=== PATIENT | female | born 1965 | race Caucasian/White ===

== ENCOUNTER 2021-02-28 18:39 | Observation (INO) ==
[2021-02-28] MEDS ORDERED: SODIUM CHLORIDE 0.9% 1000ML 1,000 ML IV STA (19:46)
[2021-02-28 19:55] LABS: Basophils # (auto) 0.02 K/uL (0-0.2); Basophils % (auto) 0.3 %; Eosinophils # (auto) 0.14 K/uL (0-0.5); Eosinophils % (auto) 1.8 %; Hematocrit (blood only) 42.5 % (37-47); Hemoglobin 13.9 g/dL (12.0-16.0); Immature Granulocytes # (auto) 0.01 K/uL (0.00-0.02); Immature Granulocytes % (auto) 0.1 %; Lymphocytes # (auto) 0.97 K/uL (1.2-3.4); Lymphocytes % (auto) 12.3 %; Mean Corpuscular Hemoglobin 28.9 pg (25-34); Mean Corpuscular Hgb Conc 32.7 g/dL (32-36); Mean Corpuscular Volume 88.4 fL (80-100); Mean Platelet Volume 12.6 fL (7.4-10.4); Monocytes # (auto) 0.83 K/uL (0.11-0.59); Monocytes % (auto) 10.5 %; Neutrophils # (auto) 5.91 K/uL (1.4-6.5); Platelet Count 363 K/uL (130-400); RDW Coefficient of Variation 13.7 % (11.5-14.5); RDW Standard Deviation 44.6 fL (36.4-46.3); Red Blood Count 4.81 M/uL (4.2-5.4); White Blood Count 7.88 K/uL (4.8-10.8)
[2021-02-28 20:21] LABS: Albumin Globulin Ratio 0.6 (0.9-2); Albumin Level 3.4 gm/dl (3.4-5.0); Alkaline Phosphatase 98 U/L (45-117); BUN Creatinine Ratio 19.6 (10-20); Bilirubin,Total 0.3 mg/dl (0.2-1); Blood Urea Nitrogen 15 mg/dl (7-18); Calcium 9.9 mg/dl (8.5-10.1); Carbon Dioxide 27 mmol/L (21-32); Chloride 109 mmol/L (98-107); Est GFR (African American) 102.2 ml/min; Est GFR (Non-African American) 88.2 ml/min; Globulin 5.6 gm/dl (2.5-4.0); Glucose 100 mg/dl (70-99); Lipase 86 U/L (73-393); Phosphorus 3.4 mg/dl (2.5-4.9); Sodium 143 mmol/L (136-145); Thyroid Stimulating Hormone 0.066 uIu/ml (0.300-4.500)
[2021-02-28 20:22] LABS: Alanine Aminotransferase 26 U/L (12-78); Potassium 4.7 mmol/L (3.5-5.1); Troponin I < 0.015 ng/ml (0-0.045)
[2021-02-28 20:23] LABS: Magnesium 1.9 mg/dl (1.8-2.4)
[2021-02-28 20:33] LABS: Aspartate Aminotransferase 22 U/L (15-37); Bilirubin Direct < 0.1 mg/dl (0-0.2); T4 Free Thyroxine 2.01 ng/dl (0.8-1.6)
--- NOTE | 2021-02-28 21:23 | XRay Report ---
XR chest 1V portable INDICATION: MN ^Y ^Chest Pain . TECHNIQUE: Single frontal radiograph of the chest was obtained. Comparison: None available at the time of this dictation. FINDINGS: Spinal stimulator wires are noted. The cardiomediastinal silhouette is normal. The lungs are clear. N o evidence of pleural effusion or pneumothorax. Dextroscoliosis is seen. IMPRESSION: No acute chest disease. ACT 112: Negative or not required by law. Electronically signed by: Taurus De Luna M.D. 02/28/2021 9:22 PM
[2021-02-28 22:01] LABS: Appearance Urine Clear (Clear); Bacteria Urine Automated Negative (Negative); Bilirubin Urine Negative (Negative); Blood Urine Trace (Negative); Color Urine Yellow; Epithelial Cell Urine Auto >30 /lpf (0-5); Glucose Urine UA Negative (Negative); Ketones Urine Negative (Negative); Leukocyte Esterase Urine 2+ (Negative); Nitrite Urine Negative (Negative); Protein Urine Negative (Negative); RBC Urine Automated 0-4 /hpf (0-4); Specific Gravity Urine 1.012 (1.000-1.030); Urobilinogen Urine Negative (Negative); pH Urine 6.5 (4.5-7.5)
[2021-02-28] MEDS ORDERED: oxyCODONE HCL SOLN 5 MG/5 ML UDC PO STA (23:16)
[2021-02-28] MEDS ORDERED: BACLOFEN 20 MG TAB PO STA (23:16)
--- NOTE | 2021-02-28 23:24 | History & Physical Report ---
Date of Service February 28, 2021 Assessment & Plan (1) Seizure: Plan: Kadeem Del Toro is a 55-year-old female with past medical history of multiple sclerosis, hypothyroidism, spasticity who came to [facility] via EMS due to an episode of loss of consciousness with muscle twitching this afternoon. Seizure CT head unable to be performed due to pain and discomfort with laying flat Ordered patient's baclofen and home oxycodone, as she had not taken these today Will reattempt CT head after treatment with this Ordered MRI brain for the morning Neurology consulted sees Dr. Sánchez as an outpatient Did not receive antiseizure medications on arrival to ED patient takes gabapentin at home, we will continue this Consider Keppra load if more seizures Consider lorazepam as nee oops Multiple Sclerosis with Spasticity Continue home gabapentin and baclofen Continue home oxycodone 10 mg as needed GERD Continue home famotidine 40 mg daily Hypothyroidism Continue home Synthroid DVT prophylaxis: Lovenox 40 mg SQ daily Dispo: Admit to PCU FEN GI: Regular diet CODE STATUS: Full code (2) Multiple sclerosis: (3) Indigestion: (4) Lymphedema: (5) Hypothyroidism: (6) Spasticity: (7) Vitamin D deficiency: History of Present Illness Primary Care Provider: Charli Harman DO Kadeem Del Toro is a 55-year-old female with past medical history of multiple sclerosis, hypothyroidism, spasticity who came to [facility] via EMS due to an episode of loss of consciousness with muscle twitching this afternoon. Per patient and , she typically has episodes of confusion at baseline which will last up to an entire day. Per their description they have discussed this with neurology and have been told that these are "seizures". However, they report that today's episode was different. She started getting confused at around 2 PM and then around 4 PM, her mentions that she "fell asleep" and then her body started twitching. At this point, decided to call EMS. Per , the patient talked to EMS upon arrival and was confusedspecifically, she was asked her age and she mentioned being in her 30s. Patient denies chest pain, palpitations, shortness of breath, nausea, vomiting, abdominal pain, urinary symptoms, fever, chills. Per and patient, patient seems to be at her neurologic baseline with no new focal neurologic deficits or weaknesses. Upon arrival to the ED the patient was given 1 L IV fluid bolus. A CT head and CT abdomen/pelvis were ordered but unable to be performed due to patient being unable to lie flat. She had lab work showing normal white count, normal hemoglobin, normal platelet count, normal electrolytes, negative troponin, elevated total protein, elevated globulin, low TSH, high free T4. Her urinalysis was significant for trace blood, 2+ LE, 10-30 WBCs, over 30 epithelial cells. Covid testing was negative. Allergies Allergy/AdvReac Type Severity Reaction Status Date / Time Penicillins AdvReac Severe buring Verified 02/28/21 19:25 sensation,itching Home Medications Medication Instructions Recorded Confirmed Type cholecalciferol (vitamin D3) 125 125 mcg PO DAILY 11/15/20 02/28/21 History mcg (5,000 unit) capsule oxybutynin chloride 10 mg 10 mg PO DAILY 90 Days #90 tab 12/04/20 02/28/21 Rx tablet,extended release 24 hr oxycodone 10 mg tablet 10 mg PO .5 X PER DAY PRN #10 tab 01/08/21 02/28/21 Rx famotidine 40 mg tablet 40 mg PO DAILY #90 tab 01/21/21 02/28/21 Rx triamcinolone acetonide 0.1 % 1 applic TOPICAL BID #80 g 01/21/21 02/28/21 Rx topical ointment ocrelizumab 30 mg/mL intravenous 600 mg IV .COMPLEX #20 ml 02/08/21 02/28/21 Rx solution (Ocrevus) Hospital Bed Homecare (Hospital [facility] ea 02/14/21 02/28/21 Rx Bed) baclofen 20 mg tablet 20 mg PO QID 30 Days #360 tab 02/20/21 02/28/21 Rx levothyroxine 125 mcg tablet 250 mcg PO DAILY 90 Days #180 tab 02/20/21 02/28/21 Rx gabapentin 600 mg tablet 600 mg PO TID 30 Days #90 tab 03/01/21 Rx Past Med/Surg History Medical History Hypothyroidism Indigestion Lymphedema Multiple sclerosis Surgical History H/O arthroscopy of left knee S/P tonsillectomy Family History Father Stroke Mother Hypothyroidism Diabetes Brother Hypothyroidism Other Colorectal cancer Denies family history of Ovarian cancer Prostate cancer Myocardial infarction Breast cancer Social History Smoking Status: Former smoker Tobacco Type: Cigarettes Age Started Using Tobacco: 18; Age Quit Using Tobacco: 41; packs per day: 0.5; Years Smoked: 23; Cigarettes Per Day: 10; Number of Years Since Quit: 14; Second Hand Exposure: No; Hx Alcohol Use: Yes Alcohol type: wine Hx Substance Use: No Preferred Language: Monegasque Communication Ability: Effective Visual Impairment: No Limitations Hearing Ability: Normal Meat Inspector Required: No Beliefs That Will Affect Care: None marital status: Current Living Situation: Spouse and Family Current Living Situation Comment: spouse and two children current occupational status: retired and disabled current occupation: Stopped working in 2006 How many Children do You have: 4 Feels Safe at Home: Yes Childhood Exposure to Second-Hand Smoke: No caffeine: Yes during the past year weight has: increased > 10 lbs Dental Care, Regularly: Yes Physical Activity Frequency: Does not Exercise Seatbelt Use: always Sunscreen Use: Yes Assistive Devices: Wheelchair Review of Systems Review of Systems: All systems reviewed & are unremarkable except as noted in HPI & below Physical Exam Physical Exam: GENERAL: A&Ox3. NAD. HEENT: PERRL, EOMI. Moist mucous membranes. NECK: No JVD. No lymphadenopathy. CHEST/LUNGS: CTAB A/P. No crackles, wheezes, rales, rhonchi. HEART: RRR. No m/g/r. No carotid bruits. ABDOMEN: NT/ND, soft. BS+ x4 EXTREMITIES: No cyanosis, no clubbing, no edema SKIN: Warm and dry. No rashes or lesions. PSYCHIATRIC: Euthymic affect, no SI, no pressured speech, no hallucinations NEUROLOGIC: CN II-XII grossly intact. Patient is unable to move her legs at baseline, is able to wiggle her toes. She is able to move both arms as normally, retort fireman strength is decreased at baseline.No facial droop. Results & Data Results & Data ([facility]) Vital Signs (Past 12 Hours) Vital Signs Pulse Pulse Resp BP BP Pulse Ox 02/28/21 21:15 115 H 17 130/105 H 97 02/28/21 20:45 72 18 95 02/28/21 19:04 79 79 22 134/82 95 Supervising Physician Co-Signing Physician Notes Attending addendum: I have physically seen this patient, have supervised the medical residents activities, and agree with the H&P unless as otherwise noted. Assessment and Plan: Seizure like activity/multiple sclerosis with spasticity- CT of head is noted for this evening after home medications MRI brain for the morning Lorazepam IV if acute seizures overnight, with longer-term consideration of Keppra Follows with neurology, Dr. Sánchez as an outpatient, will be consulted Continue gabapentin and baclofen Continue oxycodone 10 mg 4 times daily as needed GERD- Continue famotidine 40 mg daily Hypothyroidism- Continue levothyroxine Remaining orders and notations as noted Resident Activity Tracking Resident Involvement: Resident Care Provided Care Provided: Adult Hospital Medicine
[2021-02-28] MEDS ORDERED: oxyCODONE HCL IR 5 MG TAB (IMMEDIATE RELEASE) PO STA (23:39)
--- NOTE | 2021-03-01 00:33 | Emergency Department Note ---
Impression & Plan Multiple sclerosis, Seizure, Dehydration ED Provider Note NAME: JULI ARROYO AGE: 55 SEX: F ARRIVES VIA: Ambulance INFORMANT: Patient, ED PROVIDER(S): Jagdeep Deras MD CHIEF COMPLAINT: Seizure PLAN: Disposition: Admit MEDICAL DECISION MAKING: The patient is a pleasant 55-year-old woman with a past medical history of multiple sclerosis with spasticity and chronic pain that is significantly progressed with bilateral lower extremity paresis subsequently bed ridden who also has a history of associated seizures per the patient's where she will have episodes of confusion lasting up to 8 hours at a time which has been controlled after being placed on gabapentin and she has not had an episode in close to 8 months but today began around 3 PM but they were concerned due to new component of tremulousness in her extremities which she had not had before. They deny any recent fevers, chills, cough, congestion or urinary symptoms. The patient's reports that she is able to use a commode with assistance and does not require catheterization. On arrival the patient is chronically ill-appearing but no acute distress, afebrile stable vital signs. She appears clinically dry. She is sleeping comfortably without evidence of seizures at this time. EKG without overt acute ischemia. Chest x-ray negative for acute cardiopulmona ry process. WBC, H/H and platelets within normal limits. Chemistry without metabolic acidosis. Electrolytes LFTs without significant abnormality. Troponin negative/undetectable. TSH is low at 0.066 however free T4 only slightly elevated at 2. UA is suspicious for possible infection with WBCs albeit with no bacteria and epithelial cells present. Will defer treatment to admitting team. COVID-19 PCR was negative. Given the patient's new seizure-like episode with new features, the patient's h usband did prefer plan for admission for further evaluation/observation. A CT of the head and CT and pelvis was ordered however unfortunately the patient is unable to lie flat due to chronic pain in her back. Will defer for now. Case was discussed with Dr. Gordon, [facility] hospitalist, who will evaluate the patient for admission. Triage Nursing notes reviewed and agree them. Prior medical records reviewed Vital Signs: reviewed and remarkable for no significant abnormalities Differential diagnosis: Epilepsy, infection, hypoglycemia, electrolyte abnormalities, cardiac sources, intracerebral event, trauma, toxicologic, neurologic, syncope, as well as other pathologies. ER treatment provided: See below. Diagnostics interpreted by me: ECG: Normal sinus rhythm, 80 bpm, nonspecific ST and T wave abnormality, no overt ST elevation or depression, QTC 449, QRS 78. Cardiac Monitoring: An order for continuous cardiac monitoring was placed and demonstrated Normal sinus rhythm, 80 bpm, no ectopy. Laboratory studies: See below Imaging studies: See below Consultation(s): Case was discussed with Dr. Gordon, [facility] hospitalist, who will evaluate the patient for admission. HPI: The patient is a pleasant 55-year-old woman with a past medical history of multiple sclerosis with spasticity and chronic pain that is significantly progressed with bilateral lower extremity paresis subsequently bed ridden who also has a history of associated seizures per the patient's where she will have episodes of confusion lasting up to 8 hours at a time which has been controlled after being placed on gabapentin and she has not had an episode in close to 8 months but today began around 3 PM but they were concerned due to new component of tremulousness in her extremities which she had not had before. They deny any recent fevers, chills, cough, congestion or urinary symptoms. The patient's reports that she is able to use a commode with assistance and does not require catheterization. ROS: See above HPI for pertinent positives & negatives. A total of 10 systems reviewed and were otherwise negative. PAST MEDICAL HISTORY:See Below PAST SURGICAL HISTORY:See Below FAMILY HISTORY:See Below SOCIAL HISTORY:See Below HOME MEDICATIONS:See Below ALLERGIES:See Below VITALS:See Below PHYSICAL EXAMINATION: GENERAL: Sleeping, chronically ill-appearing, in no distress, morbidly obese. HENT: Normocephalic, atraumatic. Oropharynx dry and cracked. EYES: Normal conjunctiva. Sclera non-icteric. NECK: Supple. No nuchal rigidity. FROM. No JVD. RESPIRATORY: Clear to auscultation. CARDIAC: Regular rate, normal rhythm. Extremities warm and well perfused. Pulses equal. ABDOMEN: Soft, non-distended. No tenderness to palpation. No rebound or guarding. No masses. RECTAL: Deferred. MUSCULOSKELETAL: Chest examination reveals no tenderness. The back is symmetrical on inspection without obvious abnormality. There is no CVA tenderness to palpation. No joint edema. LOWER EXTREMITIES: Calves are equal size bilaterally and non-tender. No edema. No discoloration. NEURO: Bilateral lower extremity paresis at baseline. SKIN: No rash or jaundice noted. Jagdeep Deras MD Past Med/Surg History Medical History Hypothyroidism Indigestion Lymphedema Multiple sclerosis Surgical History H/O arthroscopy of left knee S/P tonsillectomy Family History Father Stroke Mother Hypothyroidism Diabetes Brother Hypothyroidism Other Colorectal cancer Denies family history of Ovarian cancer Prostate cancer Myocardial infarction Breast cancer Social History Smoking Status: Former smoker Tobacco Type: Cigarettes Age Started Using Tobacco: 18; Age Quit Using Tobacco: 41; packs per day: 0.5; Years Smoked: 23; Cigarettes Per Day: 10; Smoking End Date: 2006; Number of Years Since Quit: 14; Second Hand Exposure: No; Hx Alcohol Use: Yes Alcohol type: wine Hx Substance Use: No Preferred Language: Divehi Communication Ability: Effective Visual Impairment: No Limitations Hearing Ability: Normal Kettle Cleaner Required: No Beliefs That Will Affect Care: None marital status: Current Living Situation: Spouse and Family Current Living Situation Comment: spouse and two children current occupational status: retired and disabled current occupation: Stopped working in 2006 How many Children do You have: 4 Other Information That Helps Us Care for You: No Feels Safe at Home: Yes Safety Concerns: Feels Safe At This Time Childhood Exposure to Second-Hand Smoke: No caffeine: Yes during the past year weight has: increased > 10 lbs Dental Care, Regularly: Yes Physical Activity Frequency: Does not Exercise Seatbelt Use: always Sunscreen Use: Yes Assistive Devices: Denture - Upper Allergies Allergies Allergy/AdvReac Type Severity Reaction Status Date / Time Penicillins AdvReac Severe buring Verified 02/28/21 19:25 sensation,itching Home Meds Home Medications Medication Instructions Recorded Confirmed cholecalciferol (vitamin D3) 125 125 mcg PO DAILY 11/15/20 02/28/21 mcg (5,000 unit) capsule Previous Rx's Medication Instructions Recorded oxybutynin chloride 10 mg 10 mg PO DAILY 90 Days #90 tab 07/06/21 tablet,extended release 24 hr oxycodone 10 mg tablet 10 mg PO .5 X PER DAY PRN #10 tab 01/08/21 gabapentin 300 mg capsule 300 mg PO TID 90 Days #270 cap 01/18/21 famotidine 40 mg tablet 40 mg PO DAILY #90 tab 01/21/21 triamcinolone acetonide 0.1 % 1 applic TOPICAL BID #80 g 01/21/21 topical ointment ocrelizumab 30 mg/mL intravenous 600 mg IV .COMPLEX #20 ml 02/08/21 solution (Ocrevus) Hospital Bed Homecare (Hospital #1 ea 02/14/21 Bed) baclofen 20 mg tablet 20 mg PO QID 30 Days #360 tab 02/20/21 levothyroxine 125 mcg tablet 250 mcg PO DAILY 90 Days #180 tab 02/20/21 Results & Data (ED) Vital Signs Vital Signs - 24 hr 02/28/21 18:42 02/28/21 19:01 02/28/21 19:04 Pulse Rate 70 79 Pulse Rate [Apical] 79 Pulse Rhythm [Apical] Regular Respiratory Rate 18 22 Respiratory Depth Normal Blood Pressure 134/82 134/82 Blood Pressure [Left Arm] Blood Pressure Mean 99 99 Blood Pressure Mean [Left Arm] Pulse Oximetry 93 95 Oxygen Delivery Method Room Air Room Air Sepsis Recent Fever Within 48 Hours No Sepsis New/Unexplained Change in Mental Status No Sepsis Action Taken by Nursing No Action Required 02/28/21 20:45 02/28/21 21:15 Pulse Rate 72 Pulse Rate [Apical] 115 H Pulse Rhythm [Apical] Regular Respiratory Rate 18 17 Respiratory Depth Normal Blood Pressure Blood Pressure [Left Arm] 130/105 H Blood Pressure Mean Blood Pressure Mean [Left Arm] 113 Pulse Oximetry 95 97 Oxygen Delivery Method Room Air Room Air Sepsis Recent Fever Within 48 Hours Sepsis New/Unexplained Change in Mental Status Sepsis Action Taken by Nursing Laboratory Data Attestation: I reviewed the patient's lab results. Result diagrams: 02/28/21 19:00 02/28/21 19:00 Lab Results 02/28/21 02/28/21 02/28/21 Range/Units 19:00 19:00 19:50 WBC 7.88 (4.8-10.8) K/uL RBC 4.81 (4.2-5.4) M/uL Hgb 13.9 (12.0-16.0) g/dL Hct 42.5 (37-47) % MCV 88.4 (80-100) fL MCH 28.9 (25-34) pg MCHC 32.7 (32-36) g/dL RDW Std Deviation 44.6 (36.4-46.3) fL RDW Coeff of Juanjo 13.7 (11.5-14.5) % Plt Count 363 (130-400) K/uL MPV 12.6 H (7.4-10.4) fL Immature Gran % (Auto) 0.1 % Neut % (Auto) 75.0 % Lymph % (Auto) 12.3 % Franklin % (Auto) 10.5 % Eos % (Auto) 1.8 % Baso % (Auto) 0.3 % Neut # (Auto) 5.91 (1.4-6.5) K/uL Lymph # (Auto) 0.97 L (1.2-3.4) K/uL Franklin # (Auto) 0.83 H (0.11-0.59) K/uL Eos # (Auto) 0.14 (0-0.5) K/uL Baso # (Auto) 0.02 (0-0.2) K/uL Immature Gran # (Auto) 0.01 (0.00-0.02) K/uL Sodium 143 (136-145) mmol/L Potassium 4.7 (3.5-5.1) mmol/L Chloride 109 H (98-107) mmol/L Carbon Dioxide 27 (21-32) mmol/L Anion Gap 7.0 (3-11) BUN 15 (7-18) mg/dl Creatinine 0.77 (0.6-1.2) mg/dl Est Cr Clr Drug Dosing Not Reportable Est GFR ( Amer) 102.2 ml/min Est GFR (Non-Af Amer) 88.2 ml/min BUN/Creatinine Ratio 19.6 (10-20) Glucose 100 H (70-99) mg/dl Calcium 9.9 (8.5-10.1) mg/dl Phosphorus 3.4 (2.5-4.9) mg/dl Magnesium 1.9 (1.8-2.4) mg/dl Total Bilirubin 0.3 (0.2-1) mg/dl Direct Bilirubin < 0.1 (0-0.2) mg/dl AST 22 (15-37) U/L ALT 26 (12-78) U/L Alkaline Phosphatase 98 (45-117) U/L Troponin I < 0.015 (0-0.045) ng/ml Total Protein 9.0 H (6.4-8.2) gm/dl Albumin 3.4 (3.4-5.0) gm/dl Globulin 5.6 H (2.5-4.0) gm/dl Albumin/Globulin Ratio 0.6 L (0.9-2) Lipase 86 (73-393) U/L TSH 0.066 L (0.300-4.500) uIu/ml Free T4 2.01 H (0.8-1.6) ng/dl Urine Color Urine Appearance (Clear) Urine pH (4.5-7.5) Ur Specific [place] (1.000-1.030) Urine Protein (Negative) Urine Glucose (UA) (Negative) Urine Ketones (Negative) Urine Blood (Negative) Urine Nitrite (Negative) Urine Bilirubin (Negative) Urine Urobilinogen (Negative) Ur Leukocyte Esterase (Negative) Urine WBC (Auto) (0-5) /hpf Urine RBC (Auto) (0-4) /hpf U Hyaline Cast (Auto) (0-5) /lpf U Epithel Cells (Auto) (0-5) /lpf Urine Bacteria (Auto) (Negative) COVID-19 Eval Order Covid19 at [facility] SARS-CoV-2 (PCR) (Negative) 02/28/21 02/28/21 Range/Units 19:50 21:30 WBC (4.8-10.8) K/uL RBC (4.2-5.4) M/uL Hgb (12.0-16.0) g/dL Hct (37-47) % MCV (80-100) fL MCH (25-34) pg MCHC (32-36) g/dL RDW Std Deviation (36.4-46.3) fL RDW Coeff of Juanjo (11.5-14.5) % Plt Count (130-400) K/uL MPV (7.4-10.4) fL Immature Gran % (Auto) % Neut % (Auto) % Lymph % (Auto) % Franklin % (Auto) % Eos % (Auto) % Baso % (Auto) % Neut # (Auto) (1.4-6.5) K/uL Lymph # (Auto) (1.2-3.4) K/uL [place] # (Auto) (0.11-0.59) K/uL Eos # (Auto) (0-0.5) K/uL Baso # (Auto) (0-0.2) K/uL Immature Gran # (Auto) (0.00-0.02) K/uL Sodium (136-145) mmol/L Potassium (3.5-5.1) mmol/L Chloride (98-107) mmol/L Carbon Dioxide (21-32) mmol/L Anion Gap (3-11) BUN (7-18) mg/dl Creatinine (0.6-1.2) mg/dl Est Cr Clr Drug Dosing Est GFR ( Amer) ml/min Est GFR (Non-Af Amer) ml/min BUN/Creatinine Ratio (10-20) Glucose (70-99) mg/dl Calcium (8.5-10.1) mg/dl Phosphorus (2.5-4.9) mg/dl Magnesium (1.8-2.4) mg/dl Total Bilirubin (0.2-1) mg/dl Direct Bilirubin (0-0.2) mg/dl AST (15-37) U/L ALT (12-78) U/L Alkaline Phosphatase (45-117) U/L Troponin I (0-0.045) ng/ml Total Protein (6.4-8.2) gm/dl Albumin (3.4-5.0) gm/dl Globulin (2.5-4.0) gm/dl Albumin/Globulin Ratio (0.9-2) Lipase (73-393) U/L TSH (0.300-4.500) uIu/ml Free T4 (0.8-1.6) ng/dl Urine Color Yellow Urine Appearance Clear (Clear) Urine pH 6.5 (4.5-7.5) Ur Specific [place] 1.012 (1.000-1.030) Urine Protein Negative (Negative) Urine Glucose (UA) Negative (Negative) Urine Ketones Negative (Negative) Urine Blood Trace H (Negative) Urine Nitrite Negative (Negative) Urine Bilirubin Negative (Negative) Urine Urobilinogen Negative (Negative) Ur Leukocyte Esterase 2+ H (Negative) Urine WBC (Auto) 10-30 H (0-5) /hpf Urine RBC (Auto) 0-4 (0-4) /hpf U Hyaline Cast (Auto) 1-5 (0-5) /lpf U Epithel Cells (Auto) >30 H (0-5) /lpf Urine Bacteria (Auto) Negative (Negative) COVID-19 Eval Order SARS-CoV-2 (PCR) NEGATIVE (Negative) Administered Medications Acetaminophen (Acetaminophen 325 Mg Tab) 650 mg PO Q4H PRN PRN Reason: Pain or Fever Stop: 03/31/21 03:03 Last Admin: 03/01/21 03:57 Dose: 650 mg Documented by: [id number] Oxycodone HCl (Oxycodone Hcl Ir 5 Mg Tab (Immediate Release)) 10 mg PO [id number] PRN PRN Reason: moderate to severe pain Stop: 03/15/21 03:03 Last Admin: 03/01/21 04:01 Dose: 10 mg Documented by: [id number] Discontinued Medications Baclofen (Baclofen 20 Mg Tab) 20 mg PO NOW STA Stop: 02/28/21 23:17 Last Admin: 02/28/21 23:45 Dose: 20 mg Documented by: [id number] Sodium Chloride (Nss 1000ml) 1,000 mls @ 999 mls/hr IV .Q1H1M STA Stop: 02/28/21 20:46 Last Infusion: 02/28/21 20:59 Dose: 0 mls/hr Documented by: [id number] Admin: 02/28/21 19:57 Dose: 999 mls/hr Documented by: [id number] Ioversol (Optiray 320 100ml) 94 ml IV ONCE ONE Stop: 03/01/21 01:12 Last Admin: 03/01/21 01:11 Dose: 94 ml Documented by: [id number] Oxycodone HCl (Oxycodone Hcl Ir 5 Mg Tab (Immediate Release)) 10 mg PO NOW STA Stop: 02/28/21 23:40 Last Admin: 02/28/21 23:45 Dose: 10 mg Documented by: [id number] Imaging Data Radiologist's Impression: Chest X-Ray 02/28/21 19:46 XR chest 1V portable INDICATION: MN ^Y ^Chest Pain . TECHNIQUE: Single frontal radiograph of the chest was obtained. Comparison: None available at the time of this dictation. FINDINGS: Spinal stimulator wires are noted. The cardiomediastinal silhouette is normal. The lungs are clear. No evidence of pleural effusion or pneumothorax. Dextroscoliosis is seen. IMPRESSION: No acute chest disease. ACT 112: Negative or not required by law. Electronically signed by: Taurus De Luna M.D. 02/28/2021 9:22 PM Discharge Plan Visit Data Chief Complaint: Seizure Stated Complaint: SEIZURE ED Provider: Jagdeep Deras Discharge Problem: Multiple sclerosis, Seizure, Dehydration Patient Disposition: Admitted As Inpatient Discharge Instructions Interventions: ED Discharge Assessment Last Done: 03/01/21 01:51
[2021-03-01] MEDS ORDERED: OPTIRAY 320 100ml IV ONE (01:11)
[2021-03-01] MEDS ORDERED: FLUARIX QUADRIVALENT 0.5 ML SYR IM ONE (03:00)
[2021-03-01] MEDS ORDERED: ONDANSETRON INJ 2 MG/ML 2 ML VIAL IV PRN (03:04)
[2021-03-01] MEDS ORDERED: ACETAMINOPHEN 325 MG TAB PO PRN (03:04)
[2021-03-01] MEDS: oxyCODONE HCL IR 5 MG TAB (IMMEDIATE RELEASE) PO PRN ×3 (04:01→13:24)
[2021-03-01] MEDS ORDERED: LEVOTHYROXINE SODIUM 125 MCG TABLET PO SCH (06:30)
--- NOTE | 2021-03-01 07:12 | CT Scan Report ---
HEAD CT NONCONTRAST CT DOSE: HISTORY: Altered mental status. Possible seizure. TECHNIQUE: Multiaxial CT images of the head were performed without the use of intravenous contrast. A utomated exposure control was utilized for this study. A dose lowering technique was utilized adheri ng to the principles of ALARA. Comparison: None. Findings: The paranasal sinuses and mastoid air cells are clear. The calvarium and skull base are int act. The ventricles and sulci are within normal limits. There is no mass, hematoma, midline shift, or acute infarct. Impression: No acute intracranial abnormality. ACT 112: Negative or not required by law. Electronically signed by: Jad Radford M.D. 03/01/2021 7:11 AM
[2021-03-01 08:07] LABS: Basophils # (auto) 0.02 K/uL (0-0.2); Basophils % (auto) 0.3 %; Eosinophils # (auto) 0.08 K/uL (0-0.5); Eosinophils % (auto) 1.3 %; Hematocrit (blood only) 37.9 % (37-47); Hemoglobin 12.5 g/dL (12.0-16.0); Immature Granulocytes # (auto) 0.01 K/uL (0.00-0.02); Immature Granulocytes % (auto) 0.2 %; Lymphocytes % (auto) 17.4 %; Mean Corpuscular Volume 87.9 fL (80-100); Monocytes # (auto) 0.56 K/uL (0.11-0.59); Monocytes % (auto) 8.8 %; Neutrophils # (auto) 4.57 K/uL (1.4-6.5); Platelet Count 349 K/uL (130-400); RDW Coefficient of Variation 13.8 % (11.5-14.5); RDW Standard Deviation 44.8 fL (36.4-46.3); Red Blood Count 4.31 M/uL (4.2-5.4); White Blood Count 6.34 K/uL (4.8-10.8)
--- NOTE | 2021-03-01 08:13 | CT Scan Report ---
CT SCAN OF THE ABDOMEN AND PELVIS WITH IV CONTRAST CLINICAL HISTORY: Generalized abdominal pain. COMPARISON STUDY: Abdominal radiographs dated 08/06/2020. TECHNIQUE: Following the IV administration of 94 cc of Optiray 320, CT scan of the abdomen and pelvi s is performed from the lung bases to the proximal femora. Images are reviewed in the axial, sagittal , and coronal planes. IV contrast was administered without complication. A dose lowering technique wa s utilized adhering to the principles of ALARA. The examination is degraded by motion artifact, as we ll as by streak artifact from the arms which could not be elevated above the abdomen. CT DOSE: 2511.27 mGy.cm FINDINGS: Lung bases: The heart is normal in size and without pericardial effusion. Patchy airspace opacities a re seen in the left lower lobe. Dependent atelectasis is noted at both lung bases. There is a small t o moderate hiatal hernia. Liver: The contrast-enhanced liver is normal in size, contour, and attenuation. There is no intrahepa tic biliary ductal dilatation. The hepatic veins and portal veins are patent. Gallbladder: Unremarkable. Spleen: Normal in size and attenuation. Pancreas: Moderately atrophic and grossly unremarkable. Adrenal glands: Unremarkable. Kidneys: The contrast enhanced kidneys demonstrate cortical atrophy and are without hydronephrosis. T he kidneys enhance symmetrically. Abdominal vasculature: The abdominal aorta is normal in course and caliber noting mild atheroscleroti c calcification. Bowel: There is moderate constipation. No bowel obstruction is seen. The appendix is well-visualized and normal. Peritoneum: There is no intraperitoneal free air or abdominal ascites. There is laxity of the ventral abdominal wall with a large fat-containing umbilical hernia. Lymphadenopathy: None. Pelvic viscera: The bladder is distended but otherwise normal in appearance. The uterus and adnexa ar e normal as visualized. Skeletal structures: The skeletal structures are osteopenic. No lytic or blastic lesions are seen. Soft tissues: A neurostimulator device is present in the left lower back. Leads extend into the centr al canal in the lower thoracic region. An electronic device is also present within the right lower qu adrant abdominal wall. There is generalized atrophy of the pelvic musculature. IMPRESSION: 1. Streak and motion compromised examination. 2. Patchy airspace opacities are seen in the left lower lobe. Correlate clinically for evidence of an infectious/inflammatory pneumonitis. 3. There are no acute infectious or inflammatory findings in the abdomen or pelvis. 4. Moderate constipation. 5. Bladder distention. 6. Additional findings as above. ACT 112: Negative or not required by law. Electronically signed by: Wilfred Fisher M.D. 03/01/2021 8:12 AM
[2021-03-01 08:40] LABS: BUN Creatinine Ratio 20.6 (10-20); Calcium 9.4 mg/dl (8.5-10.1); Creatinine Clr Calc Pharmacy 156.1 ml/min; Est GFR (African American) 118.1 ml/min; Est GFR (Non-African American) 101.9 ml/min
[2021-03-01 08:42] LABS: Albumin Globulin Ratio 0.6 (0.9-2); Bilirubin,Total 0.3 mg/dl (0.2-1); Globulin 4.7 gm/dl (2.5-4.0); Total Protein 7.7 gm/dl (6.4-8.2)
[2021-03-01] MEDS ORDERED: CHOLECALCIFEROL 1,000 UNITS 25 MCG TAB PO SCH (09:00)
[2021-03-01] MEDS ORDERED: GABAPENTIN 300 MG CAP PO SCH (09:00)
[2021-03-01] MEDS ORDERED: ENOXAPARIN INJ 40 MG/0.4 ML SYR SQ SCH (09:00)
[2021-03-01] MEDS ORDERED: TRIAMCINOLONE ACET 0.1% OINT 15 GM TUBE TOP SCH (09:00)
[2021-03-01] MEDS ORDERED: OXYBUTYNIN CHLORIDE XL 5 MG TABCR PO SCH (09:00)
[2021-03-01] MEDS ORDERED: FAMOTIDINE 40 MG TABLET PO SCH (09:00)
[2021-03-01] MEDS: BACLOFEN 20 MG TAB PO SCH ×2 (09:14→13:21)
[2021-03-01 10:12] LABS: Potassium 3.7 mmol/L (3.5-5.1)
--- NOTE | 2021-03-01 11:05 | Neurology Consultation ---
Date of Consultation March 01, 2021 Assessment & Plan (1) Multiple sclerosis: (2) Seizure-like activity: 55-year-old female who was diagnosed with multiple sclerosis 13 or 14 years ago. She either has primary progressive or secondary progressive MS. She has considerable disability at baseline and is nonambulatory due to profound paraplegia. She has an associated neurogenic bladder as well as associated muscle spasms and cramps, chronic pain, and MS associated fatigue. She had gone several years without disease modifying therapy due to lack of any perceivable benefit. She did, however, start Ocrevus earlier this year after establishing with Dr. Sánchez upon moving to [facility]. The reported symptom of prolonged confusion and associated shaking lasting up to 8 hours at a time would be a bit atypical for seizures. Tremors could be related to her chronic pain, muscular spasms, or dystonia. Episodes of confusion could relate to infection, fatigue, hypersomnolence, or medication side effect. However, seizure disorder is a possible complication of multiple sclerosis and I am unable to completely exclude this potential diagnosis. Therefore, I would recommend completion of an EEG, I will order this test. I doubt she is having a true relapse of her MS given that she is in a progressive phase and has had MS for many years. I see that a noncontrast brain MRI with seizure protocol has been ordered. I would rather she have a contrast-enhanced brain MRI with our MS protocol at this point in time. I will change the order. Patient may continue with baclofen at the current dosage. It may be worthwhile to have her touch base with our pain clinic to see if her baclofen pump is serviceable and whether or not it would be worthwhile to her to have it refilled and reactivated. This consultation could be done in the outpatient setting, coordinated with the neurology and pain clinic if necessary. Patient may increase her dosage of gabapentin to 600 mg 3 times per day. Monitor for improvement in chronic pain, muscular spasms, and tremors. Patient should plan on proceeding with Ocrevus, disease modifying therapy for her MS, next infusion apparently scheduled for later this month. History of Present Illness Reason for Consultation: Multiple sclerosis, seizure? Requesting Physician: Yossi Berger Attending Physician: Taurus Waggoner, DO History of Present Illness The patient is a 55-year-old female who was diagnosed with multiple sclerosis in 2006, had presented with an episode of transverse myelitis characterized by bilateral lower extremity weakness and numbness. She reports experiencing partial improvement initially, but ultimately developed a more progressive course characterized by progressive decline in gait and motor function, especially the legs although the hands have become a bit more involved lately. She has associated neurogenic bladder, fatigue, muscle spasms, and chronic pain. She has never had optic neuritis. Her diagnosis of MS is supported by her MRI findings which include multifocal demyelination within the brain and spinal cord as well as a reported positive lumbar puncture. She had been treated with Copaxone, Avonex, and Tecfidera in the past. However, she had gone several years without disease modifying therapy until establishing with Dr. Sánchez this past July, after moving to [facility]. Patient started Ocrevus and completed her first infusion this past August. Her second infusion has been scheduled for this month. Please refer to neurology clinic notes for additional details regarding this patient's history. She is prescribed baclofen and gabapentin to address painful muscle spasms. The patient informs me that she has a nonfunctioning baclofen pump as well. The patient has been experiencing episodes of prolonged confusion and tremulousness. She does not carry a diagnosis of seizure disorder although there has been some concern expressed recently regarding whether or not these episodes may be related to seizure activity. Patient experienced 1 of these spells yesterday afternoon. Prior to that, she had not experienced a similar episode for about 8 months. Allergies Allergy/AdvReac Type Severity Reaction Status Date / Time Penicillins AdvReac Severe buring Verified 02/28/21 19:25 sensation,itching Home Medications Medication Instructions Recorded Confirmed Type cholecalciferol (vitamin D3) 125 125 mcg PO DAILY 11/15/20 02/28/21 History mcg (5,000 unit) capsule oxybutynin chloride 10 mg 10 mg PO DAILY 90 Days #90 tab 12/04/20 02/28/21 Rx tablet,extended release 24 hr oxycodone 10 mg tablet 10 mg PO .5 X PER DAY PRN #10 tab 01/08/21 02/28/21 Rx gabapentin 300 mg capsule 300 mg PO TID 90 Days #270 cap 01/18/21 02/28/21 Rx famotidine 40 mg tablet 40 mg PO DAILY #90 tab 01/21/21 02/28/21 Rx triamcinolone acetonide 0.1 % 1 applic TOPICAL BID #80 g 01/21/21 02/28/21 Rx topical ointment ocrelizumab 30 mg/mL intravenous 600 mg IV .COMPLEX #20 ml 02/08/21 02/28/21 Rx solution (Ocrevus) Hospital Bed Home[facility] ([facility] ea 02/14/21 02/28/21 Rx Bed) baclofen 20 mg tablet 20 mg PO QID 30 Days #360 tab 02/20/21 02/28/21 Rx levothyroxine 125 mcg tablet 250 mcg PO DAILY 90 Days #180 tab 02/20/21 02/28/21 Rx Patient History Medical History Hypothyroidism Indigestion Lymphedema Multiple sclerosis Surgical History H/O arthroscopy of left knee S/P tonsillectomy Family History Father Stroke Mother Hypothyroidism Diabetes Brother Hypothyroidism Other Colorectal cancer Denies family history of Ovarian cancer Prostate cancer Myocardial infarction Breast cancer Social History Smoking Status: Former smoker Tobacco Type: Cigarettes Age Started Using Tobacco: 18; Age Quit Using Tobacco: 41; packs per day: 0.5; Years Smoked: 23; Cigarettes Per Day: 10; Smoking End Date: 2006; Number of Years Since Quit: 14; Second Hand Exposure: No; Hx Alcohol Use: Yes Alcohol type: wine Hx Substance Use: No Preferred Language: Cambodian Communication Ability: Effective Visual Impairment: No Limitations Hearing Ability: Normal 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 Beliefs That Will Affect Care: None marital status: Current Living Situation: Spouse and Family Current Living Situation Comment: spouse and two children current occupational status: retired and disabled current occupation: Stopped working in 2006 How many Children do You have: 4 Other Information That Helps Us Care for You: No Feels Safe at Home: Yes Safety Concerns: Feels Safe At This Time Childhood Exposure to Second-Hand Smoke: No caffeine: Yes during the past year weight has: increased > 10 lbs Dental Care, Regularly: Yes Physical Activity Frequency: Does not Exercise Seatbelt Use: always Sunscreen Use: Yes Assistive Devices: Wheelchair Review of Systems Constitutional: + fatigue; no fever and no chills Eyes: no blind spots and no diplopia Ear, Nose, Mouth, Throat: no ear pain and no hearing loss Respiratory: no cough and no dyspnea Cardiovascular: no chest pain and no palpitations Gastrointestinal: no constipation and no diarrhea/loose stools Genitourinary: + urinary urgency Musculoskeletal: + muscle weakness; no muscle atrophy Integumentary: no rash and no lesions Neurologic: as per Subjective / HPI, + gait abnormality, + localized weakness, + loss of sensation and + seizure-like activity Psychiatric: no behavioral changes, no depression, no abnormal sleep pattern and no anxiety Hematologic / Lymphatic: no easy bruising and no lymphadenopathy Exam (Neuro) Constitutional: well developed and well nourished; no acute distress Eyes: normal visual montiel by confrontation, PERRL, normal accommodation and EOM intact bilaterally; no fundoscopic abnormality, no nystagmus and no papilledema Cardiovascular: Vessels: normal carotid upstroke; no carotid bruit Neurologic: Oriented to:: Person, Place and Time Memory: Short Term Intact and Remote Intact Attention: Span Intact and Concentration Intact Language: Naming Objects and Repeating Phrases Speech Fluency: negative Dysarthria Speech Aphasia: negative Aphasia Fund of Knowledge: Current Events, Past History and Vocabulary Cranial Nerves: Normal II (Visual montiel full to confrontation, visual acuity normal), III, IV, (Pupils equal round reactive to light and accommodation, eye movements normal), V (Facial sensation intact), VII (There is no facial droop or weakness), VIII (Hearing intact), IX, X (Palate elevates to midline), XI (Shoulder shrug intact) and XII (Tongue protrudes to midline) Motor Strength: Normal Upper Extremities; negative Normal Lower Extremities or Pronator Drift Motor Tone: Normal Upper Extremities; negative Normal Lower Extremities Muscle Bulk/Involuntary Mov ements: No Involuntary Movements; negative Muscle Atrophy Sensation: negative Light Touch Intact, Pain/Temperature Intact, Vibration Intact or Proprioception Intact Coordination: Finger-Nose Abnormal and Heel-Mckeon Abnormal (Unable to perform due to profound weakness); negative Dysdiadochokinesia Deep Tendon Reflexes: Rt Triceps: 1+, Lt Triceps: 1+, Rt Biceps: 1+, Lt Biceps: 1+, Rt Brachioradialis: 1+, Lt Brachioradialis: 1+, Rt Patellar: 1+, Lt Patellar: 1+, Rt Ankle: 1+ and Lt Ankle: 1+ Special Tests: Babinski Present (Bilateral) Details: Gait could not be tested although patient is nonambulatory at baseline due to profound bilateral lower extremity weakness. Mental status is intact. Cranial nerve function intact. Patient has a paraparesis on examination with profound bilateral lower extremity weakness. Minimal toe wiggling for the right foot only. Mild weakness for the hands noted as well. Results & Data ([facility]) Vital Signs (Past 12 Hours) Vital Signs Temp Pulse Pulse Resp BP BP Pulse Ox 03/01/21 08:24 36.5 C 83 18 90/61 L 03/01/21 08:20 108 H 03/01/21 02:43 36.7 C 76 16 89/62 L 99 03/01/21 01:32 82 17 164/99 H 100 03/01/21 01:10 78 20 181/107 H 98 03/01/21 00:30 93 H 25 H 164/110 H 98 03/01/21 00:00 79 17 166/106 H 98 02/28/21 23:48 80 16 163/99 H 98 02/28/21 23:47 78 15 163/99 H 99 Laboratory Results WBC 6.34, hemoglobin 12.5, hematocrit 37.9, platelet count 349, sodium 142, potassium 3.7, BUN 13, creatinine 0.64, glucose 94, calcium 9.4, AST 19, ALT 23, TSH 0.066, free T4 2.01, urinalysis equivocal, possible dirty catch. Diagnostic Findings A CT of the head completed yesterday was negative for hemorrhage or acute process. MRI of the brain, cervical spine, and thoracic spine were completed this past July. I did review the images as well as the radiologist interpretation of these test. Patient does have rather extensive chronic appearing multifocal white matter lesions within the brain and spinal cord. She has characteristic brain lesions including Bailon's fingers, periventricular lesions, as well as juxtacortical lesions, primarily supratentorial although there are a few infratentorial lesions as well. Multifocal spinal cord lesions noted throughout the cervical and thoracic spinal cord. An electrocardiogram revealed normal sinus rhythm, 80 bpm. Coding Level of Care Code 33958 Initial Inpt Care Lvl 3 Diagnoses Multiple sclerosis G35 Seizure-like activity R56.9
--- NOTE | 2021-03-01 13:03 | Electroencephalogram ---
EEG Procedure Note Date of Service March 01, 2021 Start / End Times Start Time: 11:50 AM End Time: 12:10 PM Referring Physician Thony Gilmore MD History Multiple sclerosis, seizure-like episodes Home Medication List Medication Instructions Recorded Confirmed Type cholecalciferol (vitamin D3) 125 125 mcg PO DAILY 11/15/20 02/28/21 History mcg (5,000 unit) capsule oxybutynin chloride 10 mg 10 mg PO DAILY 90 Days #90 tab 12/04/20 02/28/21 Rx tablet,extended release 24 hr oxycodone 10 mg tablet 10 mg PO .5 X PER DAY PRN #10 tab 01/08/21 02/28/21 Rx gabapentin 300 mg capsule 300 mg PO TID 90 Days #270 cap 01/18/21 02/28/21 Rx famotidine 40 mg tablet 40 mg PO DAILY #90 tab 01/21/21 02/28/21 Rx triamcinolone acetonide 0.1 % 1 applic TOPICAL BID #80 g 01/21/21 02/28/21 Rx topical ointment ocrelizumab 30 mg/mL intravenous 600 mg IV .COMPLEX #20 ml 02/08/21 02/28/21 Rx solution (Ocrevus) Hospital Bed [facility] (Hospital [facility] ea 02/14/21 02/28/21 Rx Bed) baclofen 20 mg tablet 20 mg PO QID 30 Days #360 tab 02/20/21 02/28/21 Rx levothyroxine 125 mcg tablet 250 mcg PO DAILY 90 Days #180 tab 02/20/21 02/28/21 Rx Inpatient Medication List Acetaminophen (Acetaminophen 325 Mg Tab) 650 mg PO Q4H PRN PRN Reason: Pain or Fever Stop: 03/31/21 03:03 Last Admin: 03/01/21 03:57 Dose: 650 mg Documented by: [id number] Baclofen (Baclofen 20 Mg Tab) 20 mg PO QID [facility] Stop: 03/31/21 08:59 Last Admin: 03/01/21 09:14 Dose: 20 mg Documented by: [id number] Enoxaparin Sodium (Enoxaparin Inj 40 Mg/0.4 Ml Syr) 40 mg SQ QAM EFREN Stop: 03/31/21 08:59 Last Admin: 03/01/21 09:14 Dose: 40 mg Documented by: [id number] Famotidine (Famotidine 40 Mg Tablet) 40 mg PO DAILY EFREN Stop: 03/31/21 08:59 Last Admin: 03/01/21 09:14 Dose: 40 mg Documented by: [id number] Levothyroxine Sodium (Levothyroxine Sodium 125 Mcg Tablet) 250 mcg PO DAILYBB EFREN Stop: 03/31/21 06:29 Last Admin: 03/01/21 06:33 Dose: 250 mcg Documented by: [id number] Oxybutynin Chloride (Oxybutynin Chloride Xl 5 Mg Tabcr) 10 mg PO DAILY EFREN Stop: 03/31/21 08:59 Last Admin: 03/01/21 09:14 Dose: 10 mg Documented by: [id number] Oxycodone HCl (Oxycodone Hcl Ir 5 Mg Tab (Immediate Release)) 10 mg PO [id number] PRN PRN Reason: moderate to severe pain Stop: 03/15/21 03:03 Last Admin: 03/01/21 09:13 Dose: 10 mg Documented by: [id number] Admin: 03/01/21 04:01 Dose: 10 mg Documented by: [id number] Triamcinolone Acetonide (Triamcinolone Acet 0.1% Oint 15 Gm Tube) 1 appln TOP BID EFREN Stop: 03/31/21 08:59 Last Admin: 03/01/21 09:14 Dose: 1 appln Documented by: [id number] Vitamin D (Cholecalciferol 1,000 Units 25 Mcg Tab) 5,000 units PO DAILY EFREN Stop: 03/31/21 08:59 Last Admin: 03/01/21 09:14 Dose: 5,000 units Documented by: [id number] Discontinued Medications Baclofen (Baclofen 20 Mg Tab) 20 mg PO NOW STA Stop: 02/28/21 23:17 Last Admin: 02/28/21 23:45 Dose: 20 mg Documented by: [id number] Gabapentin (Gabapentin 300 Mg Cap) 300 mg PO TID EFREN Stop: 03/31/21 08:59 Last Admin: 03/01/21 09:14 Dose: 300 mg Documented by: [id number] Sodium Chloride (Nss 1000ml) 1,000 mls @ 999 mls/hr IV .Q1H1M STA Stop: 02/28/21 20:46 Last Infusion: 02/28/21 20:59 Dose: 0 mls/hr Documented by: [id number] Admin: 02/28/21 19:57 Dose: 999 mls/hr Documented by: [id number] Ioversol (Optiray 320 100ml) 94 ml IV ONCE ONE Stop: 03/01/21 01:12 Last Admin: 03/01/21 01:11 Dose: 94 ml Documented by: [id number] Oxycodone HCl (Oxycodone Hcl Ir 5 Mg Tab (Immediate Release)) 10 mg PO NOW STA Stop: 02/28/21 23:40 Last Admin: 02/28/21 23:45 Dose: 10 mg Documented by: [id number] Description This is a 21 electrode EEG with a single channel dedicated to limited EKG. The electrodes were placed in accordance with the International 10-20 system. There is a posterior dominant rhythm of 10 Hz which is symmetrically distributed and attenuates with eye opening. There is a normal anterior to posterior organization. Photic stimulation is unremarkable. Hyperventilation is not performed. There is a minimal degree of admixed generalized polymorphic theta activity. There is a symmetric frontal beta rhythm. There is no focal or lateralized slowing. No epileptiform abnormalities observed. Interpretation Normal-appearing awake/drowsy EEG. A normal EEG does not completely exclude a diagnosis of epilepsy. Further clinical correlation may be needed. [facility] EEG Procedure Codes Indication for Procedure (1) Seizure-like activity: Neurology Neurology: [id number] EEG include record awake & drowsy
[2021-03-01] MEDS ORDERED: GABAPENTIN 600 MG TAB PO SCH (14:00)
--- NOTE | 2021-03-01 16:43 | Discharge Summary ---
Date of Service March 01, 2021 Admission HPI Per Admitting Provider Kadeem Del Toro is a 55-year-old female with past medical history of multiple sclerosis, hypothyroidism, spasticity who came to [facility] via EMS due to an episode of loss of consciousness with muscle twitching this afternoon. Per patient and , she typically has episodes of confusion at baseline which will last up to an entire day. Per their description they have discussed this with neurology and have been told that these are "seizures". However, they report that today's episode was different. She started getting confused at around 2 PM and then around 4 PM, her mentions that she "fell asleep" and then her body started twitching. At this point, decided to call EMS. Per , the patient talked to EMS upon arrival and was confusedspecifically, she was asked her age and she mentioned being in her 30s. Patient denies chest pain, palpitations, shortness of breath, nausea, vomiting, abdominal pain, urinary symptoms, fever, chills. Per and patient, patient seems to be at her neurologic baseline with no new focal neurologic deficits or weaknesses. Upon arrival to the ED the patient was given 1 L IV fluid bolus. A CT head and CT abdomen/pelvis were ordered but unable to be performed due to patient being unable to lie flat. She had lab work showing normal white count, normal hemoglobin, normal platelet count, normal electrolytes, negative troponin, elevated total protein, elevated globulin, low TSH, high free T4. Her urinalysis was significant for trace blood, 2+ LE, 10-30 WBCs, over 30 epithelial cells. Covid testing was negative. Principal Diagnosis Advanced MS with seizure activity Discharge Exam General: well developed, well nourished, bedbound, mild discomfort due to back, appears older than age Neck: supple, trachea midline, normal thyroid Lungs: clear to auscultation bilaterally, normal respiratory effort, no accessory muscle use, no distress Heart: regular S1 and S2, no murmur, peripheral pulses normal, capillary refill normal, no edema Abdomen: soft, NT, ND, + BS, no hepatomegaly, normal to percussion Extremities: muscle atrophy, spasticity, decreased strength most pronounced in legs, no cyanosis, no petechiae, limited ROM of lumbar spine Neuro: awake, cooperative, moves all extremities, no focal motor deficits, CN II-XII intact, sensation in extremities intact, normal speech Skin: warm, dry, no rash, normal turgor Psych: Awake, alert oriented x 3, flat affect Discharge Data Allergies Allergy/AdvReac Type Severity Reaction Status Date / Time Penicillins AdvReac Severe buring Verified 02/28/21 19:25 sensation,itching Consultations 02/28/21 22:38 ED Decision to Admit Stat 03/01/21 03:04 Consult Neurology Routine Ordered Studies 02/28/21 19:46 CT abd pelvis IV con only Urgent CT head/brain wo con Urgent 03/01/21 11:11 MR brain MS wo/w con Routine Hospital Course (1) Seizure: Kadeem Del Toro is a 55-year-old female with past medical history of multiple sclerosis, hypothyroidism, spasticity who came to [facility] via EMS due to an episode of loss of consciousness with muscle twitching this afternoon. Seizure CT head unremarkable for new changes, could barely make it through the scan due to severe low back pain - appreciate consult from Dr. Gilmore, recommends getting MRI brain combo for MS to look for new lesions etc long discussion regarding getting the MRI, she refuses to attempt it, says the pain in her low back will be too intense offered to premedicate with strong opiate such as Dilaudid, still refusing suggest trying MRI outpatient she says she is too uncomfortable in the hospital bed, just wants to get in her power chair and go home EEG did not show any epileptic wave forms increase Gabapentin to 600mg TID per neurology follow up closely with Dr. Sánchez Multiple Sclerosis with Spasticity Continue home gabapentin (increased to 600mg TID) and baclofen recommend checking into pain control clinic to see if baclofen pump can be re- activated and filled, might provide better, more focal relief Continue home oxycodone 10 mg as needed GERD Continue home famotidine 40 mg daily Hypothyroidism Continue home Synthroid DVT prophylaxis: Lovenox 40 mg SQ daily Dispo: Admit to PCU FEN GI: Regular diet CODE STATUS: Full code (2) Multiple sclerosis: (3) Indigestion: (4) Lymphedema: (5) Hypothyroidism: (6) Spasticity: (7) Vitamin D deficiency: Total Time Total Time Spent Total Time Spent (In Minutes): 37 minutes Discharge Plan Discharge Items Patient Disposition: Home - Self-Care Reason For Visit: WORSENING SEIZURES, H/O MS Discharge Diagnosis: Multiple sclerosis Seizure activity Condition on Discharge: Good Goals: increase Gabapentin follow up with pain clinic, see about Baclofen pump service and refill Activity: Resume your previous activity Non-emergency contact: Primary Care Provider Call non-emergency contact if: you have any medication questions Follow-up/Referrals: Charli Harman, [Primary Care Provider] - (one week) Diet: Regular Addtl Attending Provider Instructions: Medications: - GABAPENTIN: increase from 300mg to 600mg three times a day, [facility], can double up on 300mg until you get 600mg EEG showed no seizure like activity neurology recommends MRI of the brain with contrast if your back pain improves and you can tolerate as outpatient, contact Dr. Sánchez's office recommend following up with pain clinic, neurology clinic to see if they can access baclofen pump, re-activate? Pending Studies at Discharge: No Stand-Alone Forms: [employer], Smoking Cessation Medications and DC Order Prescriptions: New gabapentin 600 mg Tablet 600 mg PO TID 30 Days Qty: 90 RF: 3 Continued oxybutynin chloride 10 mg tablet extended release 24hr 10 mg PO DAILY 90 Days Qty: 90 RF: 1 triamcinolone acetonide 0.1 % ointment 1 applic topical BID Qty: 80 RF: 0 famotidine 40 mg tablet 40 mg PO DAILY Qty: 90 RF: 1 Ocrevus 30 mg/mL solution 600 mg IV .COMPLEX Qty: 20 RF: 1 (DME) Hospital Bed Mis See Rx Instructions .Route Qty: 1 RF: 0 baclofen 20 mg tablet 20 mg PO QID 30 Days Qty: 360 RF: 1 levothyroxine 125 mcg tablet 250 mcg PO DAILY 90 Days Qty: 180 RF: 1 oxycodone 10 mg tablet 10 mg PO .5 X PER DAY PRN (Reason: pain) Qty: 10 RF: 0 cholecalciferol (vitamin D3) 125 mcg (5,000 unit) capsule 125 mcg PO DAILY RF: 0 Discontinued gabapentin 300 mg capsule 300 mg PO TID 90 Days Qty: 270 RF: 1 Discharge Orders: Discharge Order (Routine); Ordered 03/01/21 Ordered By: Taurus Waggoner Admission Data Admit Date/Time: 02/28/21 23:15 Attending Provider: Taurus Waggoner Admit Provider: Yossi Berger Primary Care Provider: Charli Harman Other Providers: Delon Gordon ; Thony Gilmore Other Interventions: Discharge Summary Assessment (RN) Last Done: 03/01/21 17:29 Coding Level of Care Code 19401 OBS Care - Discharge Diagnoses Seizure R56.9 Multiple sclerosis G35 Indigestion K30 Lymphedema I89.0 Hypothyroidism E03.9 Spasticity R25.2 Vitamin D deficiency E55.9
--- NOTE | 2021-03-01 16:44 | Communication Note ---
Date of Service: March 01, 2021 By CMS guidelines, a determination that the admission or continued stay is not medically necessary has been made by a member of the UR committee and a phy sician for this hospital stay, therefore a Code 44 will be completed and the Inpatient admission will be changed to outpatient.
--- NOTE | 2021-03-01 21:29 | Billing Data ---
Date of Service March 01, 2021 Coding Level of Care Code INT OBSERVATION CARE 70M LVL 3
--- NOTE | 2021-03-01 22:18 | Electrocardiogram Report ---
Test Reason : Blood Pressure : / mmHG Vent. Rate : 080 BPM Atrial Rate : 080 BPM P-R Int : 162 ms QRS Dur : 078 ms QT Int : 390 ms P-R-T Axes : 008 031 030 degrees QTc Int : 449 ms Poor data quality, interpretation may be adversely affected Normal sinus rhythm Nonspecific ST and T wave abnormality Abnormal ECG No previous ECGs available Confirmed by Ra Rodriguez ([id number]) on 03/01/2021 10:18:05 PM Referred By: REFERRED SELF Confirmed By:Ra Rodriguez
== END 2021-03-01 18:02 | disposition home or self-care (01) ==
LOC: ED 18:39 → 2S 23:15 → SUATTDRO 23:15 → INTOOBSV 23:15 → 2S 03-01 01:51

== ENCOUNTER 2021-09-06 11:43 | Observation (INO) ==
--- NOTE | 2021-09-05 11:13 | Anesthesiology Consultation ---
Date of Service September 05, 2021 Assessment & Plan (1) Encounter for pre-operative examination: - urine test am DOS. - ER 08/29/2021 [place]: "...X-rays of the right ankle and foot shows a displaced fracture of the medial malleolus...posterior Ortho-Glass splint was applied...encouraged to elevate the ankle above the heart for swelling...continue with her current home pain treatment regimen as needed for additional pain relief. She was instructed to follow-up with [facility] for further reevaluation and management..." - ER 08/16/2021 [place]: "...erythematous and tender area along the medial aspect of the mid left calf, indurated and warm to the touch...Labs and imaging reviewed, labs are fairly unremarkable, no leukocytosis and no significant electrolyte abnormalities. Venous ultrasound of the left lower extremity was reviewed, there is no evidence of DVT, but there was a 5 cm complex fluid collection in the area of erythema and warmth. This does appear to be somewhat deep. I suspect the fluid collection could represent a hematoma, and appears more consistent with this than an abscess, I did not feel incision and drainage was prudent at this time...2g IV Rocephin empirically and will treat with Keflex for possible developing cellulitis..." - neurology office visit 07/16/2021 [place]: "...f/u re: Multiple Sclerosis...EMG/NCV showed mild left ulnar neuropathy; did not complete testing. ESR 77, CRP 0.45, (+) NAPOLEON; referred to rheumatology; continues to follow her for now. A1c 5.7. TSH 0.038; f/u with PCP...does have ongoing UTI; has been on multiple abx and it seems like still is occurring...more swelling in lower extremities; on top of the lymphedema she has. BP has been running high; has been monitoring it at home. denies any CP or SOB. adding Cymbalta seems to have helped somewhat with the pain in her left 4th and 5th finger...Order for wrist splint. Increase Cymbalta to 60mg daily. Referral to Urology for recurrent UTI's. Referral to Cardiology re: HTN and lower extremity edema. Continue on all other current meds..." - rheumatology office visit 06/15/2021: "...positive NAPOLEON evaluation...history of MS...NAPOLEON positive-pt does not have any specific symptoms concerning for SLE and labs are not indicative of active SLE present. Anti SSA weakly positive w/o clinical symptoms or labs..." - neurology office visit 04/19/2021 [place]: "...Long standing hx of MS; with tremulous episodes with confusion that seem to worsen as time goes on. Will get updated lab work to r/o any other causes; EEG was negative. Also, will order EMG/NCV of BUE to see how significant PN is. Start Cymbalta 30mg daily; continue on Gabapentin 600mg po TID..." - COVID screening: Per assessment counselor on 09/05/2021: Travel screen negative, no known COVID-19 positive contacts or current COVID-19 related symptoms in past 2 weeks. Patient vaccinated. Surgeon arranging preop COVID testing, scheduled 09/04/2021: negative. Chart Review Chart Review: Acceptable Risk for Surgery and Patient NOT seen in Pre Admission Testing History Surgery Operation Date: 09/06/21 12:55 Proposed Procedures p Right Ankle Open Reduction Internal Fixation Distal Medial Melleolus Fracture - Pilo Lo, Height/Weight Height: 5 ft 7 in Weight: 108 kg Allergies Allergy/AdvReac Type Severity Reaction Status Date / Time Penicillins Allergy Intermediate buring Verified 09/05/21 11:30 sensation,itching Medications Home Medications Medication Instructions Recorded Confirmed Last Taken cholecalciferol (vitamin D3) 125 125 mcg PO DAILY 11/15/20 09/05/21 Unknown mcg (5,000 unit) capsule oxycodone 10 mg tablet 10 mg PO .5 X PER DAY PRN #10 tab 01/08/21 09/05/21 Unknown triamcinolone acetonide 0.1 % 1 applic TOPICAL BID #80 g 01/21/21 09/05/21 Unknown topical ointment ocrelizumab 30 mg/mL intravenous 600 mg IV .COMPLEX #20 ml 02/08/21 09/05/21 Unknown solution (Ocrevus) Hospital Bed Homecare (Hospital #1 ea 02/14/21 08/21/21 Unknown Bed) gabapentin 600 mg tablet 600 mg PO TID 90 Days #270 tab 07/02/21 09/05/21 Unknown levothyroxine 125 mcg tablet 125 mcg PO DAILY 90 Days #90 tab 07/02/21 09/05/21 Unknown baclofen 20 mg tablet 20 mg PO QID 90 Days #360 tab 07/05/21 09/05/21 Unknown duloxetine 60 mg capsule,delayed 60 mg PO QAM 09/05/21 09/05/21 Unknown release (Cymbalta) famotidine 40 mg tablet 40 mg PO QAM 09/05/21 09/05/21 Unknown levothyroxine 100 mcg capsule 200 mcg PO QAM 09/05/21 09/05/21 Unknown oxybutynin chloride 10 mg 10 mg PO QAM 09/05/21 09/05/21 Unknown tablet,extended release 24 hr Past Medical History Medical History (Updated 09/05/21 @ 12:42 by Gabriella Perez PA-C) Bilateral lower extremity edema GERD (gastroesophageal reflux disease) History of seizure 03/2021>HOSPITALIZED AT [facility]-episodes of tremulousness with confusion, EEG negative per neurology HTN (hypertension) PT DENIES Hypothyroidism Lymphedema Multiple sclerosis W/C BOUND>UNABLE TO AMBULATE Past Family History Family History (Updated 09/05/21 @ 11:40 by Mari Wilder RN) Father Stroke Mother Diabetes Hypothyroidism Brother Hypothyroidism Other Colorectal cancer No family history of adverse response to anesthesia Denies family history of Ovarian cancer Prostate cancer Myocardial infarction Breast cancer Past Surgical History Surgical History H/O arthroscopy of left knee History of tooth extraction Presence of intrathecal pump PAIN PUMP IN ABDOMEN>PT STATES NOT ON OR WORKING S/P tonsillectomy Social History Smoking Status: Former smoker Smoking cigarettes per day: 10 Smoking End Date: 2006 Hx Alcohol Use: Yes Alcohol type: wine alcohol intake frequency: holidays/special occasions only Hx Substance Use: No Lab Results Anesthesia Preop Results Results Anesthesia Widget: WBC 6.19 K/uL (4.8-10.8) 08/16/21 Hgb 12.9 g/dL (12.0-16.0) 08/16/21 Hct 39.4 % (37-47) 08/16/21 Plt 280 K/uL (130-400) 08/16/21 Na 139 mmol/L (136-145) 08/16/21 K 3.7 mmol/L (3.5-5.1) 08/16/21 Cl 104 mmol/L (98-107) 08/16/21 CO2 28 mmol/L (21-32) 08/16/21 BUN 19 mg/dl (6-23) 08/16/21 Creat 0.83 mg/dl (0.6-1.2) 08/16/21 Glucose Level 112 mg/dl (70-99(Fasting)) H 08/16/21 PT 10.6 Seconds (9.0-12.0) 08/16/21 PTT 26.2 Seconds (21.0-31.0) 08/16/21 INR 1.0 (0.9-1.1) 08/16/21 Urine Color Yellow 07/15/21 Urine Appearance Clear (Clear) 07/15/21 Urine pH 7.0 (4.5-7.5) 07/15/21 Urine Specific [place] 1.012 (1.000-1.030) 07/15/21 Urine Protein Negative (Negative) 07/15/21 Urine Glucose (UA) Negative (Negative) 07/15/21 Urine Ketones Negative (Negative) 07/15/21 Urine Blood Negative (Negative) 07/15/21 Urine Nitrite Negative (Negative) 07/15/21 Urine Bilirubin Negative (Negative) 07/15/21 Urine Urobilinogen Negative (Negative) 07/15/21 Urine Leukocyte Esterase Trace (Negative) H 07/15/21 Urine WBC (Auto) 1-5 /hpf (0-5) 07/15/21 Urine RBC (Auto) 0-4 /hpf (0-4) 07/15/21 Urine Hyaline Casts (Auto) 1-5 /lpf (0-5) 07/15/21 Urine Epithelial Cells (Auto) >30 /lpf (0-5) H 07/15/21 Urine Bacteria (Auto) Negative (Negative) 07/15/21 Testing Electrocardiogram Date: 09/05/21 NSR, rate 63 bpm Chest X-Ray Date: 02/28/21 *1 view* Spinal stimulator wires are noted. The cardiomediastinal silhouette is normal. The lungs are clear. No evidence of pleural effusion or pneumothorax. Dextroscoliosis is seen. IMPRESSION: No acute chest disease. Other Testing Venous doppler 08/16/2021 IMPRESSION: 1. There is no sonographic evidence of deep venous thrombosis identified in the left lower extremity. 2. There is a 5.0 cm complex fluid collection identified in the medial left calf the site of interest. The sterility of this fluid cannot be assessed by imaging. Head CT 02/28/2021 No acute intracranial abnormality. Abdomen/pelvis CT 02/28/2021 Lung bases: The heart is normal in size and without pericardial effusion. Patchy airspace opacities are seen in the left lower lobe. Dependent atelectasis is noted at both lung bases. There is a small to moderate hiatal hernia. Pancreas: Moderately atrophic and grossly unremarkable. Kidneys: The contrast enhanced kidneys demonstrate cortical atrophy and are without hydronephrosis. The kidneys enhance symmetrically. Abdominal vasculature: The abdominal aorta is normal in course and caliber noting mild atherosclerotic calcification. Bowel: There is moderate constipation. No bowel obstruction is seen. The appendix is well-visualized and normal. Peritoneum: There is no intraperitoneal free air or abdominal ascites. There is laxity of the ventral abdominal wall with a large fat-containing umbilical hernia. Skeletal structures: The skeletal structures are osteopenic. No lytic or blastic lesions are seen. Soft tissues: A neurostimulator device is present in the left lower back. Leads extend into the central canal in the lower thoracic region. An electronic device is also present within the right lower quadrant abdominal wall. There is generalized atrophy of the pelvic musculature. IMPRESSION: 1. Streak and motion compromised examination. 2. Patchy airspace opacities are seen in the left lower lobe. Correlate clinically for evidence of an infectious/inflammatory pneumonitis. 3. There are no acute infectious or inflammatory findings in the abdomen or pelvis. 4. Moderate constipation. 5. Bladder distention. 6. Additional findings as above.
--- NOTE | 2021-09-05 13:26 | History & Physical Report ---
Date of Service September 05, 2021 Assessment & Plan (1) Fracture of medial malleolus, right, closed: Plan: Schedule a Right Ankle Open Reduction Internal Fixation Medial Melleolus Fracture for 09.06.21. All potential risks, benefits, complications, alternatives, and rehab have been discussed with the patient and she wishes to proceed. Plan for ASA 81 mg BID x 4 wks for post op DVT prophylaxis. Encounter type: initial encounter Fracture alignment: displaced Qualified Code(s): S82.51XA - Displaced fracture of medial malleolus of right tibia, initial encounter for closed fracture (2) Bilateral lower extremity edema: History of Present Illness Chief Complaint: right ankle pain Primary Care Provider: Charli Harman DO This is a patient who is mostly electric wheelchair bound secondary to progressive MS. She has been in the wheelchair since 2019. Earlier this week, the patient was in her transport van when a sudden stop caused her chair to start moving forward. Her right ankle was caught on one of the straps that keeps the chair in place and caused a twisting injury. X-rays at [facility] ER noted a medial malleolus fx. Allergies Allergy/AdvReac Type Severity Reaction Status Date / Time Penicillins Allergy Intermediate buring Verified 09/05/21 11:30 sensation,itching Home Medications Medication Instructions Recorded Confirmed Type cholecalciferol (vitamin D3) 125 125 mcg PO DAILY 11/15/20 09/05/21 History mcg (5,000 unit) capsule oxycodone 10 mg tablet 10 mg PO .5 X PER DAY PRN #10 tab 01/08/21 09/05/21 Rx triamcinolone acetonide 0.1 % 1 applic TOPICAL BID #80 g 01/21/21 09/05/21 Rx topical ointment ocrelizumab 30 mg/mL intravenous 600 mg IV .COMPLEX #20 ml 02/08/21 09/05/21 Rx solution (Ocrevus) Hospital Bed Homecare (Hospital #1 ea 02/14/21 08/21/21 Rx Bed) gabapentin 600 mg tablet 600 mg PO TID 90 Days #270 tab 07/02/21 09/05/21 Rx levothyroxine 125 mcg tablet 125 mcg PO DAILY 90 Days #90 tab 07/02/21 09/05/21 Rx baclofen 20 mg tablet 20 mg PO QID 90 Days #360 tab 07/05/21 09/05/21 Rx duloxetine 60 mg capsule,delayed 60 mg PO QAM 09/05/21 09/05/21 History release (Cymbalta) famotidine 40 mg tablet 40 mg PO QAM 09/05/21 09/05/21 History levothyroxine 100 mcg capsule 200 mcg PO QAM 09/05/21 09/05/21 History oxybutynin chloride 10 mg 10 mg PO QAM 09/05/21 09/05/21 History tablet,extended release 24 hr Past Med/Surg History Medical History Bilateral lower extremity edema GERD (gastroesophageal reflux disease) History of seizure 03/2021>HOSPITALIZED AT [facility]-episodes of tremulousness with confusion, EEG negative per neurology HTN (hypertension) PT DENIES Hypothyroidism Lymphedema Multiple sclerosis W/C BOUND>UNABLE TO AMBULATE Surgical History H/O arthroscopy of left knee History of tooth extraction Presence of intrathecal pump PAIN PUMP IN ABDOMEN>PT STATES NOT ON OR WORKING S/P tonsillectomy Family History (Updated 09/05/21 @ 11:40 by Mari Wilder RN) Father Stroke Mother Diabetes Hypothyroidism Brother Hypothyroidism Other Colorectal cancer No family history of adverse response to anesthesia Denies family history of Ovarian cancer Prostate cancer Myocardial infarction Breast cancer Social History Smoking Status: Former smoker Tobacco Type: Cigarettes Age Started Using Tobacco: 18; Age Quit Using Tobacco: 41; packs per day: 0.5; Years Smoked: 23; Cigarettes Per Day: 10; Number of Years Since Quit: 14; Second Hand Exposure: No; Hx Alcohol Use: Yes Alcohol type: wine Hx Substance Use: No Preferred Language: Thai Communication Ability: Effective Visual Impairment: No Limitations Hearing Ability: Normal Awning Hanger Helper Required: No Beliefs That Will Affect Care: None marital status: Current Living Situation: Family Current Living Situation Comment: AND 2 SONS current occupational status: retired and disabled current occupation: Stopped working in 2006 How many Children do You have: 4 Feels Safe at Home: Yes Childhood Exposure to Second-Hand Smoke: No caffeine: Yes during the past year weight has: increased > 10 lbs Dental Care, Regularly: Yes Physical Activity Frequency: Does not Exercise Seatbelt Use: always Sunscreen Use: Yes Assistive Devices: Denture - Upper, Denture - Lower, Glasses and Wheelchair Physical Exam Constitutional: well developed, well nourished and + obese; no acute distress ENMT: external ear and nose normal, oropharynx normal Neck: trachea midline Respiratory: normal respiratory effort, lungs clear to auscultation Cardiovascular: Rate/Rhythm: regular rate and regular rhythm Extremities: + edema (moderate to severe BLE) Gastrointestinal (Abdomen): normal bowel sounds, soft, nontender, no hepatosplenomegaly Musculoskeletal: Ankle: + joint line tenderness (ankle) (right medial malleolus); ankle normal to inspection, no skin erythema and no ecchymosis Skin: no rashes, warm and dry Trauma: no evidence of skin trauma Neurologic: normal touch/pain/proprioception Psychiatric: A+Ox3, euthymic affect Speech: normal rate/rhythm/volume of speech Lymphatic: no cervical or axillary lymphadenopathy
[~2021-09-06 11:43] MED LIST: CLINDAMYCIN 600 MG/54 ML BAG IV SCH; LACTATED RINGER'S 1,000 ML IV SCH; MIDAZOLAM HCL 1 MG/ML 2ML VIAL ONE; ONDANSETRON INJ 2 MG/ML 2 ML VIAL ONE; PROPOFOL IV EMULSION 10 MG/ML 20 ML VIAL IV ONE; ROPIVACAINE 0.5% 5 MG/ML 30 ML VIAL ONE; fentaNYL citrate 100 MCG/2 ML VIAL ONE
--- NOTE | 2021-09-06 12:49 | History & Physical Bridge Note ---
Date of Service September 06, 2021 History & Physical Bridge Note I have examined the patient, reviewed the History & Physical and in the interval since the performance of the History & Physical I have noted the following changes of clinical significance: no changes noted
[2021-09-06] MEDS ORDERED: BUPIVACAINE 0.5 % 5 MG/1 ML MPF 30ML VIAL ONE (13:53)
[2021-09-06] MEDS ORDERED: EPINEPHrine INJ 1 MG/ML AMP ONE (13:53)
[2021-09-06] MEDS ORDERED: fentaNYL citrate 100 MCG/2 ML VIAL ONE (14:14)
[2021-09-06] MEDS ORDERED: LABETALOL HCL IV 5 MG/ML 20ML IV ONE (14:17)
--- NOTE | 2021-09-06 14:46 | Post Operative Brief Note ---
Immediate Post Op Note v1 Date of Surgery September 06, 2021 Pre & Post Diagnosis Operation Date: 09/06/21 12:55 Pre-Op Diagnosis: Right Ankle Displaced Medial Melleolus Fracture Post-Op Diagnosis: Right Ankle Displaced Medial Melleolus Fracture I identified the patient and participated in the time-out.: Yes Procedure Operation Date: 09/06/21 12:55 Actual Procedures p Right Ankle Open Reduction Internal Fixation Distal Medial Melleolus Fracture(Right) - Pilo Lo DO Surgeon Pilo Lo DO Supervisor [employer] Gamaliel Levi PA-C Estimated Blood Loss 1 Findings Consistent with Post-Op Diagnosis Anesthesia Type General Regional Complications none Disposition Accompanied Patient To Recovery: No Overlapping Procedure I was present for: the critical portions of procedure. I was immediately available: during the entire case.
[2021-09-06] MEDS ORDERED: oxyCODONE/ACETAMINOPHEN 5mg/325mg TAB PO PRN (14:52)
[2021-09-06] MEDS ORDERED: HYDROmorphone HCL 2 MG TAB PO PRN (14:52)
[2021-09-06] MEDS ORDERED: MoRPHine SULFATE 2 MG/ML CARP IV PRN (14:52)
[2021-09-06] MEDS ORDERED: ONDANSETRON INJ 2 MG/ML 2 ML VIAL IV PRN ×2 (14:52→15:28)
--- NOTE | 2021-09-06 15:11 | Fluoroscopy Report ---
FL ankle RT 2V CLINICAL HISTORY: ORIF RT DISTAL MEDIAL MALLEOLUS FX COMPARISON STUDY: Right ankle radiographs August 29, 2021. FLUOROSCOPY TIME: 1 minute and 52 seconds. FLUOROSCOPIC IMAGES: 2 FINDINGS: Fluoroscopy was provided during internal fixation of the medial malleolar fracture with 2 c annulated screws. Fracture alignment appears anatomic. There are no unexpected radiopaque foreign bod ies. IMPRESSION: Fluoroscopy provided during internal fixation of the medial malleolar fracture. ACT 112: Negative or not required by law. Electronically signed by: Gato Knapp M.D. 09/06/2021 3:10 PM
[2021-09-06] MEDS ORDERED: ATROPINE SULFATE 0.1 MG/ML 10ML SYR IV PRN (15:28)
[2021-09-06] MEDS ORDERED: ePHEDrine sulfate 50 MG/ML AMP IV PRN (15:28)
[2021-09-06] MEDS ORDERED: fentaNYL citrate 100 MCG/2 ML VIAL IV PRN (15:28)
[2021-09-06] MEDS ORDERED: DROPERIDOL 5 MG/2 ML VIAL IV STA (15:42)
--- NOTE | 2021-09-06 15:49 | XRay Report ---
RIGHT ANKLE 3 VIEWS CLINICAL HISTORY: Postoperative examination. FINDINGS: 3 views of the right ankle are compared to study dated 08/29/2021. The examination is perfor med through a cast, obscuring fine bony detail. The skeletal structures are osteopenic. 2 cortical la g screws transfix a medial malleolar fracture with jain of near-anatomic alignment. The orthop edic hardware appears intact. No new fracture is seen. The ankle mortise is intact. Soft tissue edema is seen throughout the right lower extremity. IMPRESSION: Postoperative images from open reduction and internal fixation of the medial malleolus as above. Electronically signed by: Wilfred Fisher M.D. 09/06/2021 3:47 PM
--- NOTE | 2021-09-06 16:00 | Anesthesiology Progress Note ---
Date of Service September 06, 2021 Anesthesia Post Procedure Vital Signs Vital Signs: Temp Pulse Pulse Resp BP BP Pulse Ox 09/06/21 15:50 62 13 140/88 98 09/06/21 15:40 63 15 158/95 H 100 09/06/21 15:30 68 23 159/98 H 91 09/06/21 15:20 64 17 159/101 H 100 09/06/21 15:10 66 22 153/101 H 97 09/06/21 15:03 36.7 C 66 16 142/98 H 95 09/06/21 12:32 37.1 C 71 22 175/93 H 98 Transfer of Care Handoff Completed per policy Notes Mental Status: alert / awake / arousable and participated in evaluation Patient Amnestic to Procedure: Yes Nausea / Vomiting: adequately controlled Pain: adequately controlled Airway Patency, RR, SpO2: stable & adequate BP & HR: stable & adequate Hydration State: stable & adequate Anesthetic Complications: no major complications apparent and Pt Satisfied with anesthetic care
[2021-09-06] MEDS ORDERED: DOCUSATE SODIUM 100 MG CAP PO PRN (20:37)
--- NOTE | 2021-09-06 20:53 | XRay Report ---
SINGLE VIEW CHEST CLINICAL HISTORY: Hemoptysis. FINDINGS: An AP, portable, upright chest radiograph is compared to study dated 02/28/2021. The heart i s enlarged. The pulmonary vasculature is noncongested. There is mild bibasilar atelectasis. The lungs and pleural spaces are otherwise clear. No pneumothorax is seen. The skeletal structures are osteope lyn. The bony thorax is grossly intact. Scoliosis is noted in the thoracic spine. Intrathecal leads p roject over the lower thoracic region. IMPRESSION: No active disease in the chest. ACT 112: Negative or not required by law. Electronically signed by: Wilfred Fisher M.D. 09/06/2021 8:51 PM
--- NOTE | 2021-09-06 20:54 | History & Physical Report ---
Date of Service September 06, 2021 Assessment & Plan (1) Bleeding: Plan: 55yo female with history of progressive MS with malleolar fracture s/p ORIF performed today by Dr. Lo. Successful surgery, no complications identified. Patient developed post-operative throat pain, pain with swallowing and bloody sputum. No stridor, no airway edema appreciated on exam. Most likely secondary to minor trauma from LMA. Dexamethasone given -Observation to medical -Continuous pulse oximetry -Aspiration precautions -NPO - advance diet as tolerated (2) History of ankle surgery: Plan: s/p right ORIF performed 09/06/21 -Pain control -Antiemetics -Bowel regimen pRN -Orthopedics consultation re: discharge planning (3) HTN (hypertension): Plan: Blood pressure presently elevated -Pain control with Morphine and Percocet PRN -Patient presently not on medication for blood pressure -Continue to monitor (4) Multiple sclerosis: Plan: Patient with progressive MS. Wheelchair bound -Turn and position as needed -External catheter placed -Continue home medications - Oxybutynin, Gabapentin and Baclofen (5) Hypothyroidism: Plan: TSH within normal limits at 1.126 on 09/04/21 -Continue Synthroid 200mcg po daily (6) Lymphedema: Plan: Chronic. Unchanged -Leg elevation Plan: F/E/N - Heplock. Electrolytes WNL, NPO for now ADAT Ppx - SCDs Code - Full per discussion with patient Dispo - Observation to medical Admission and Anticipated Discharge Date Admission Date: September 06, 2021 History of Present Illness Chief Complaint: post operative hemoptysis Primary Care Provider: Charli Harman DO Kadeem Del Toro is a 55yo C female with history of progressive MS, wheelchair bound since 2019. She had an unfortunate incident earlier this week when her ankle was caught on on one of the straps causing a twisting injury. She was seen in the ER and found to have a displaced medial malleolus fracture on the right. He had an ORIF performed by Dr. Lo this afternoon. The surgery was done under General regional anesthesia with an IGEL LMA in place. Surgery was well tolerated, uncomplicated with minimal blood loss reported. She was transitioned to PACU for recovery when she developed dysphagia and pain in her throat, specifically on the left side as well as bloody sputum. Nursing reports that the patient expectorated a moderate amount of dark blood. She developed a cough productive for some pink tinged sputum as well. She was reevaluated by anesthesia with inspection of the oropharynx and did not appreciate any abrasions of the palate or uvula. She was administered 10mg of IV Decadron for possible airway edema. Saturations maintained at 93-97% on room air. No SOB, cough or stridor reported. Patient without complaint upon my encounter. She was sleepy but arousable, able to answer questions and follow commands. at bedside at well. Meds administered prior to admission: Decadron 10mg IV Allergies Allergy/AdvReac Type Severity Reaction Status Date / Time Penicillins Allergy Intermediate buring Verified 09/06/21 12:10 sensation,itching Home Medications Medication Instructions Recorded Confirmed Type cholecalciferol (vitamin D3) 125 125 mcg PO DAILY 11/15/20 09/06/21 History mcg (5,000 unit) capsule triamcinolone acetonide 0.1 % 1 applic TOPICAL BID #80 g 01/21/21 09/06/21 Rx topical ointment ocrelizumab 30 mg/mL intravenous 600 mg IV .COMPLEX #20 ml 02/08/21 09/06/21 Rx solution (Ocrevus) Hospital Bed Homecare ([facility]ospital [facility] ea 02/14/21 08/21/21 Rx Bed) gabapentin 600 mg tablet 600 mg PO TID 90 Days #270 tab 07/02/21 09/05/21 Rx baclofen 20 mg tablet 20 mg PO QID 90 Days #360 tab 07/05/21 09/05/21 Rx duloxetine 60 mg capsule,delayed 60 mg PO QAM 09/05/21 09/05/21 History release (Cymbalta) famotidine 40 mg tablet 40 mg PO QAM 09/05/21 09/05/21 History levothyroxine 100 mcg capsule 200 mcg PO QAM 09/05/21 09/05/21 History oxybutynin chloride 10 mg 10 mg PO QAM 09/05/21 09/05/21 History tablet,extended release 24 hr aspirin 81 mg tablet,delayed 81 mg PO BID #60 tab 09/06/21 Rx release morphine 15 mg tablet,extended 15 mg PO Q12H #6 tab 09/06/21 Rx release (MS Contin) naloxone 4 mg/actuation nasal 1 spray INTRANASAL ONCE PRN #2 ea 09/06/21 Rx spray (Narcan) oxycodone-acetaminophen 10 mg-325 1 tab PO Q4H PRN #20 tab 09/06/21 Rx mg tablet (Percocet) Past Med/Surg History Medical History Bilateral lower extremity edema GERD (gastroesophageal reflux disease) History of seizure 03/2021>HOSPITALIZED AT [facility]-episodes of tremulousness with confusion, EEG negative per neurology HTN (hypertension) PT DENIES Hypothyroidism Lymphedema Multiple sclerosis W/C BOUND>UNABLE TO AMBULATE Obesity Surgical History H/O arthroscopy of left knee History of tooth extraction Presence of intrathecal pump PAIN PUMP IN ABDOMEN>PT STATES NOT ON OR WORKING S/P tonsillectomy Family History Father Stroke Mother Diabetes Hypothyroidism Brother Hypothyroidism Other Colorectal cancer No family history of adverse response to anesthesia Denies family history of Ovarian cancer Prostate cancer Myocardial infarction Breast cancer Social History Smoking Status: Former smoker Tobacco Type: Cigarettes Age Started Using Tobacco: 18; Age Quit Using Tobacco: 41; packs per day: 0.5; Years Smoked: 23; Cigarettes Per Day: 10; Smoking End Date: 2006; Number of Years Since Quit: 14; Second Hand Exposure: No; Do You Dip or Chew Tobacco: No; Hx Alcohol Use: Yes Alcohol type: wine Hx Substance Use: No Preferred Language: Wolof Communication Ability: Effective Visual Impairment: No Limitations Hearing Ability: Normal Clipper Machine Operator Required: No Beliefs That Will Affect Care: None marital status: Current Living Situation: Spouse and Family Current Living Situation Comment: spouse and two children current occupational status: retired and disabled current occupation: Stopped working in 2006 How many Children do You have: 4 Feels Safe at Home: Yes Safety Concerns: Feels Safe At This Time Childhood Exposure to Second-Hand Smoke: No caffeine: Yes during the past year weight has: increased > 10 lbs Dental Care, Regularly: Yes Physical Activity Frequency: Does not Exercise Seatbelt Use: always Sunscreen Use: Yes Assistive Devices: Wheelchair Review of Systems Review of Systems: All systems reviewed & are unremarkable except as noted in HPI & below Physical Exam Physical Exam: General: patient seen in PCU, resting comfortably, NAD, answering questions and following commands, non-toxic Skin: warm, dry, intact, no rashes or lesions HEENT: NC/AT, PERRL, EOMI, anicteric sclera, conjunctiva without injection, external ear normal to inspection and nontender, nares patent, moist mucus membranes, upper dentures in place -not secure, no lower teeth, neck supple, trachea midline, no LAD, no thyromegaly, no JVD Oropharyngeal inspection - no obvious lacerations, no edema, no lesions, no blood present in oral cavity or posterior pharynx Heart: +S1/S2, regular, no m/r/g Lungs: equal air entry bilaterally, no rales/rhonchi/wheezes Abd: +BS, soft, NT/ND, no masses/organomegaly/ascites Ext: warm, 2+ pulses in UE/LE bilaterally, no clubbing/cyanosis, edema of LLE, RLE with wrapping in place Neuro: diffusely weak Results & Data [facility] Vital Signs (Past 12 Hours) Vital Signs Temp Pulse Pulse Resp BP BP Pulse Ox 09/06/21 20:33 37.2 C 91 H 20 169/117 H 93 09/06/21 18:05 72 20 177/116 H 97 09/06/21 17:30 65 18 155/92 H 95 09/06/21 16:20 36.4 C L 65 18 155/91 H 93 09/06/21 16:00 36.3 C L 63 15 124/77 99 09/06/21 15:50 62 13 140/88 98 09/06/21 15:40 63 15 158/95 H 100 09/06/21 15:30 68 23 159/98 H 91 09/06/21 15:20 64 17 159/101 H 100 09/06/21 15:10 66 22 153/101 H 97 09/06/21 15:03 36.7 C 66 16 142/98 H 95 09/06/21 12:32 37.1 C 71 22 175/93 H 98 Laboratory Results Laboratory Results WBC 12.06 K/uL (4.8-10.8) H 09/06/21 20:44 RBC 4.61 M/uL (4.2-5.4) 09/06/21 20:44 Hgb 13.3 g/dL (12.0-16.0) 09/06/21 20:44 Hct 41.5 % (37-47) 09/06/21 20:44 MCV 90.0 fL (80-100) 09/06/21 20:44 MCH 28.9 pg (25-34) 09/06/21 20:44 MCHC 32.0 g/dL (32-36) 09/06/21 20:44 RDW Std Deviation 51.7 fL (36.4-46.3) H 09/06/21 20:44 RDW Coeff of Juanjo 15.7 % (11.5-14.5) H 09/06/21 20:44 Plt Count 354 K/uL (130-400) 09/06/21 20:44 MPV 11.7 fL (7.4-10.4) H 09/06/21 20:44 Immature Gran % (Auto) 0.2 % 09/06/21 20:44 Neut % (Auto) 92.8 % 09/06/21 20:44 Lymph % (Auto) 4.1 % 09/06/21 20:44 Armstrong % (Auto) 2.5 % 09/06/21 20:44 Eos % (Auto) 0.3 % 09/06/21 20:44 Baso % (Auto) 0.1 % 09/06/21:44 Neut # (Auto) 11.18 K/uL (1.4-6.5) H 09/06/21 20:44 Lymph # (Auto) 0.50 K/uL (1.2-3.4) L 09/06/21 20:44 Armstrong # (Auto) 0.30 K/uL (0.11-0.59) 09/06/21 20:44 Eos # (Auto) 0.04 K/uL (0-0.5) 09/06/21 20:44 Baso # (Auto) 0.01 K/uL (0-0.2) 09/06/21 20:44 Immature Gran # (Auto) 0.03 K/uL (0.00-0.02) H 09/06/21 20:44 Sodium 142 mmol/L (136-145) 09/06/21 20:44 Potassium 3.8 mmol/L (3.5-5.1) 09/06/21 20:44 Chloride 104 mmol/L (98-107) 09/06/21 20:44 Carbon Dioxide 29 mmol/L (21-32) 09/06/21 20:44 Anion Gap 9 (3-11) 09/06/21 20:44 BUN 12 mg/dl (6-23) 09/06/21 20:44 Creatinine 0.81 mg/dl (0.6-1.2) 09/06/21 20:44 Est Cr Clr Drug Dosing 109.5 ml/min 09/06/21 20:44 Est GFR ( Amer) 96.1 ml/min 09/06/21 20:44 Est GFR (Non-Af Amer) 82.9 ml/min 09/06/21 20:44 BUN/Creatinine Ratio 14.8 (10-20) 09/06/21 20:44 Glucose 121 mg/dl (70-99(Fasting)) H 09/06/21 20:44 Calcium 9.8 mg/dl (8.5-10.1) 09/06/21 20:44 Impressions Ankle X-Ray 09/06/21 14:52 RIGHT ANKLE 3 VIEWS CLINICAL HISTORY: Postoperative examination. FINDINGS: 3 views of the right ankle are compared to study dated 08/29/2021. The examination is performed through a cast, obscuring fine bony detail. The skeletal structures are osteopenic. 2 cortical lag screws transfix a medial malleolar fracture with evangelical of near-anatomic alignment. The orthopedic hardware appears intact. No new fracture is seen. The ankle mortise is intact. Soft tissue edema is seen throughout the right lower extremity. IMPRESSION: Postoperative images from open reduction and internal fixation of the medial malleolus as above. Electronically signed by: Wilfred Fisher M.D. 09/06/2021 3:47 PM Chest X-Ray 09/06/21 20:37 SINGLE VIEW CHEST CLINICAL HISTORY: Hemoptysis. FINDINGS: An AP, portable, upright chest radiograph is compared to study dated 02/28/2021. The heart is enlarged. The pulmonary vasculature is noncongested. There is mild bibasilar atelectasis. The lungs and pleural spaces are otherwise clear. No pneumothorax is seen. The skeletal structures are osteopenic. The bony thorax is grossly intact. Scoliosis is noted in the thoracic spine. Intrathecal leads project over the lower thoracic region. IMPRESSION: No active disease in the chest. ACT 112: Negative or not required by law. Electronically signed by: Wilfred Fisher M.D. 09/06/2021 8:51 PM Code Status & VTE Plan VTE Prophylaxis Plan VTE Prophylaxis will be ordered: Yes PG Care Time/CCT Total # of Minutes Spent Total Time Spent with Patient: Total time spent is greater than 50% in coordination of care (as documented) at patient's floor/unit and/or counseling patient: Coding Level of Care Code INT OBSERVATION CARE 70M LVL 3 Diagnoses HTN (hypertension) I10 Multiple sclerosis G35 Hypothyroidism E03.9 Lymphedema I89.0 Bleeding R58 History of ankle surgery Z98.890
[2021-09-06 20:58] LABS: Basophils # (auto) 0.01 K/uL (0-0.2); Basophils % (auto) 0.1 %; Eosinophils # (auto) 0.04 K/uL (0-0.5); Eosinophils % (auto) 0.3 %; Hematocrit (blood only) 41.5 % (37-47); Hemoglobin 13.3 g/dL (12.0-16.0); Immature Granulocytes # (auto) 0.03 K/uL (0.00-0.02); Immature Granulocytes % (auto) 0.2 %; Lymphocytes % (auto) 4.1 %; Mean Corpuscular Hemoglobin 28.9 pg (25-34); Mean Platelet Volume 11.7 fL (7.4-10.4); Monocytes % (auto) 2.5 %; Neutrophils # (auto) 11.18 K/uL (1.4-6.5); Neutrophils % (auto) 92.8 %; Platelet Count 354 K/uL (130-400); RDW Coefficient of Variation 15.7 % (11.5-14.5); RDW Standard Deviation 51.7 fL (36.4-46.3); Red Blood Count 4.61 M/uL (4.2-5.4); White Blood Count 12.06 K/uL (4.8-10.8)
[2021-09-06 21:30] LABS: BUN Creatinine Ratio 14.8 (10-20); Calcium 9.8 mg/dl (8.5-10.1); Creatinine Clr Calc Pharmacy 109.5 ml/min; Est GFR (African American) 96.1 ml/min; Est GFR (Non-African American) 82.9 ml/min; Potassium 3.8 mmol/L (3.5-5.1)
[2021-09-06] MEDS: oxyCODONE/ACETAMINOPHEN 5mg/325mg TAB PO PRN (21:46)
[2021-09-06] MEDS: BACLOFEN 20 MG TAB PO SCH (21:47)
[2021-09-06] MEDS: TRIAMCINOLONE ACET 0.1% OINT 15 GM TUBE TOP SCH (22:12)
[2021-09-06] MEDS: GABAPENTIN 600 MG TAB PO SCH (22:12)
--- NOTE | 2021-09-06 23:24 | Communication Note ---
Date of Service: September 06, 2021 I evaluated this patient in phase 2 recovery along with off going anesthesiologist. Concern was for some soft tissue abrasions 2/2 LMA placement in OR. Patient was tolerating cold liquids but felt uncomfortable in doing so. She was given IV steroids and I re-evaluated her about an hour later. She continued to endorse mild throat pain but also was coughing up sputum/phlegm that was very mild pink in color. Unsure if this was originating in lungs vs phlegm that mixed with small amount of blood from posterior part of pharynx. Spoke at length with patient and her and she eventually agreed to stay overnight for observation to ensure her airway stays patent and she had no worsening of her throat pain. Surgeon was made aware and consulted hospitalist service to help manager surgery her overnight. CXR was done and did not show any appreciable lung pathology. Will closely monitor patient's condition.
[2021-09-07] MEDS ORDERED: POLYETHYLENE (MIRALAX) 17 GM PACK PO PRN (01:24)
[2021-09-07] MEDS ORDERED: DOCUSATE SODIUM 100 MG CAP PO PRN (01:24)
[2021-09-07] MEDS: oxyCODONE/ACETAMINOPHEN 5mg/325mg TAB PO PRN (05:19)
[2021-09-07] MEDS ORDERED: LEVOTHYROXINE SODIUM 100 MCG TABLET PO SCH (06:30)
[2021-09-07] MEDS: BACLOFEN 20 MG TAB PO SCH ×2 (08:39→13:07)
[2021-09-07] MEDS: TRIAMCINOLONE ACET 0.1% OINT 15 GM TUBE TOP SCH (08:39)
[2021-09-07] MEDS: GABAPENTIN 600 MG TAB PO SCH ×2 (08:40→13:07)
[2021-09-07] MEDS ORDERED: FAMOTIDINE 40 MG TABLET PO SCH (09:00)
[2021-09-07] MEDS ORDERED: OXYBUTYNIN CHLORIDE XL 5 MG TABCR PO SCH (09:00)
[2021-09-07] MEDS ORDERED: DULoxetine HCL 60 MG CAP PO SCH (09:00)
--- NOTE | 2021-09-07 10:03 | Anesthesiology Progress Note ---
Date of Service September 07, 2021 Anesthesia Post Procedure Vital Signs Vital Signs: Temp Pulse Pulse Resp BP BP Pulse Ox 09/07/21 07:53 36.9 C 105 H 18 161/103 H 95 09/07/21 03:29 36.7 C 100 H 20 179/21 H 98 09/06/21 23:15 09/06/21 23:12 36.8 C 97 H 20 173/115 H 99 09/06/21 20:33 37.2 C 91 H 20 169/117 H 93 09/06/21 18:05 72 20 177/116 H 97 09/06/21 17:30 65 18 155/92 H 95 09/06/21 16:20 36.4 C L 65 18 155/91 H 93 09/06/21 16:00 36.3 C L 63 15 124/77 99 09/06/21 15:50 62 13 140/88 98 09/06/21 15:40 63 15 158/95 H 100 09/06/21 15:30 68 23 159/98 H 91 09/06/21 15:20 64 17 159/101 H 100 09/06/21 15:10 66 22 153/101 H 97 09/06/21 15:03 36.7 C 66 16 142/98 H 95 09/06/21 12:32 37.1 C 71 22 175/93 H 98 Pulse Ox 09/07/21 07:53 09/07/21 03:29 09/06/21 23:15 98 09/06/21 23:12 09/06/21 20:33 09/06/21 18:05 09/06/21 17:30 09/06/21 16:20 09/06/21 16:00 09/06/21 15:50 09/06/21 15:40 09/06/21 15:30 09/06/21 15:20 09/06/21 15:10 09/06/21 15:03 09/06/21 12:32 Notes Mental Status: alert / awake / arousable and participated in evaluation Patient Amnestic to Procedure: Yes Nausea / Vomiting: adequately controlled Pain: adequately controlled Airway Patency, RR, SpO2: stable & adequate BP & HR: stable & adequate Hydration State: stable & adequate Anesthetic Complications: see Notes below Notes: Pt had some airway trauma immediately after procedure and did have some bleeding post LMA placement. Today, patient states her throat feels much better and that she is no longer spitting out any blood. She said she did receive an airway exam post op and no one was able to visualize any kind of laceration or visual trauma. States she is hoping to get discharged soon.
--- NOTE | 2021-09-07 10:36 | Orthopedic Consultation ---
Date of Consultation September 07, 2021 Assessment & Plan (1) Fracture of medial malleolus, right, closed: Postop day 1 status post ORIF right medial malleolar fracture. Nonweightbearing on the right lower extremity. PT/OT protocols as able. Please follow instructions placed in the discharge instructions section. Follow-up with Dr. Lo in 2 weeks. History of Present Illness Reason for Consultation: Recent ORIF right medial malleolus fracture Attending Physician: Casi Covarrubias MD History of Present Illness 55yo female with history of progressive MS, wheelchair bound since 2019. Shee had an ORIF performed by Dr. Lo yesterday. The surgery went well and patient was takento PACU where she was planned for discharge to home when she recovered. The surgery was done under General regional anesthesia with an IGEL LMA in place. In PACU, she developed dysphagia and pain in her throat, specifically on the left side as well as bloody sputum. Nursing reports that the patient expectorated a moderate amount of dark blood. She developed a cough productive for some pink tinged sputum as well. Dr. Lo was notified. At that point time, not [place] hospitalist service was consulted to see the patient in PACU. Dr. Arti Cotto quickly went over to see the patient and then admitted her for observation overnight. We have been consulted to watch over her recent surgery on her right lower extremity. Currently she is sitting up in bed awake and alert. She states that she is now having a few more problems concerning her other medical issues and her MS secondary to being in a different bed and a different set up. She is not having any difficulty or complaints with her right lower extremity at this time. No other complaints at this time. She is hoping to go home today. Allergies Allergy/AdvReac Type Severity Reaction Status Date / Time Penicillins Allergy Intermediate buring Verified 09/06/21 12:10 sensation,itching Home Medications Medication Instructions Recorded Confirmed Type cholecalciferol (vitamin D3) 125 125 mcg PO DAILY 11/15/20 09/06/21 History mcg (5,000 unit) capsule triamcinolone acetonide 0.1 % 1 applic TOPICAL BID #80 g 01/21/21 09/06/21 Rx topical ointment ocrelizumab 30 mg/mL intravenous 600 mg IV .COMPLEX #20 ml 02/08/21 09/06/21 Rx solution (Ocrevus) Hospital Bed Homecare (Hospital #1 ea 02/14/21 08/21/21 Rx Bed) gabapentin 600 mg tablet 600 mg PO TID 90 Days #270 tab 07/02/21 09/05/21 Rx baclofen 20 mg tablet 20 mg PO QID 90 Days #360 tab 07/05/21 09/05/21 Rx duloxetine 60 mg capsule,delayed 60 mg PO QAM 09/05/21 09/05/21 History release (Cymbalta) famotidine 40 mg tablet 40 mg PO QAM 09/05/21 09/05/21 History levothyroxine 100 mcg capsule 200 mcg PO QAM 09/05/21 09/05/21 History oxybutynin chloride 10 mg 10 mg PO QAM 09/05/21 09/05/21 History tablet,extended release 24 hr aspirin 81 mg tablet,delayed 81 mg PO BID #60 tab 09/06/21 Rx release morphine 15 mg tablet,extended 15 mg PO Q12H #6 tab 09/06/21 Rx release (MS Contin) naloxone 4 mg/actuation nasal 1 spray INTRANASAL ONCE PRN #2 ea 09/06/21 Rx spray (Narcan) oxycodone-acetaminophen 10 mg-325 1 tab PO Q4H PRN #20 tab 09/06/21 Rx mg tablet (Percocet) Patient History Medical History Bilateral lower extremity edema GERD (gastroesophageal reflux disease) History of seizure 03/2021>HOSPITALIZED AT [facility]-episodes of tremulousness with confusion, EEG negative per neurology HTN (hypertension) PT DENIES Hypothyroidism Lymphedema Multiple sclerosis W/C BOUND>UNABLE TO AMBULATE Obesity Surgical History H/O arthroscopy of left knee History of tooth extraction Presence of intrathecal pump PAIN PUMP IN ABDOMEN>PT STATES NOT ON OR WORKING S/P tonsillectomy Family History Father Stroke Mother Diabetes Hypothyroidism Brother Hypothyroidism Other Colorectal cancer No family history of adverse response to anesthesia Denies family history of Ovarian cancer Prostate cancer Myocardial infarction Breast cancer Social History Smoking Status: Former smoker Tobacco Type: Cigarettes Age Started Using Tobacco: 18; Age Quit Using Tobacco: 41; packs per day: 0.5; Years Smoked: 23; Cigarettes Per Day: 10; Smoking End Date: 2006; Number of Years Since Quit: 14; Second Hand Exposure: No; Do You Dip or Chew Tobacco: No; Hx Alcohol Use: Yes Alcohol type: wine Hx Substance Use: No Preferred Language: Armenian Communication Ability: Effective Visual Impairment: No Limitations Hearing Ability: Normal Center Human Resources Manager Required: No Beliefs That Will Affect Care: None marital status: Current Living Situation: Spouse and Family Current Living Situation Comment: spouse and two children current occupational status: retired and disabled current occupation: Stopped working in 2006 How many Children do You have: 4 Feels Safe at Home: Yes Safety Concerns: Feels Safe At This Time Childhood Exposure to Second-Hand Smoke: No caffeine: Yes during the past year weight has: increased > 10 lbs Dental Care, Regularly: Yes Physical Activity Frequency: Does not Exercise Seatbelt Use: always Sunscreen Use: Yes Assistive Devices: Wheelchair Physical Exam Physical Exam: Right lower extremity splint is clean, dry, and intact. Toes are pink and warm. Results & Data ([facility]) Vital Signs (Past 12 Hours) Vital Signs Temp Pulse Pulse Resp BP Pulse Ox Pulse Ox 09/07/21 07:53 36.9 C 105 H 18 161/103 H 95 09/07/21 03:29 36.7 C 100 H 20 179/21 H 98 09/06/21 23:15 98 09/06/21 23:12 36.8 C 97 H 20 173/115 H 99 (1) Fracture of medial malleolus, right, closed Encounter type: initial encounter Fracture alignment: displaced Qualified Code(s): S82.51XA - Displaced fracture of medial malleolus of right tibia, initial encounter for closed fracture
[2021-09-07] MEDS ORDERED: oxyCODONE HCL IR 5 MG TAB (IMMEDIATE RELEASE) PO PRN (10:43)
--- NOTE | 2021-09-07 12:37 | Discharge Summary ---
Date of Service September 07, 2021 Admission HPI Per Admitting Provider Kadeem Del Toro is a 55yo C female with history of progressive MS, wheelchair bound since 2019. She had an unfortunate incident earlier this week when her ankle was caught on on one of the straps causing a twisting injury. She was seen in the ER and found to have a displaced medial malleolus fracture on the right. He had an ORIF performed by Dr. Lo this afternoon. The surgery was done under General regional anesthesia with an IGEL LMA in place. Surgery was well tolerated, uncomplicated with minimal blood loss reported. She was transitioned to PACU for recovery when she developed dysphagia and pain in her throat, specifically on the left side as well as bloody sputum. Nursing reports that the patient expectorated a moderate amount of dark blood. She developed a cough productive for some pink tinged sputum as well. She was reevaluated by anesthesia with inspection of the oropharynx and did not appreciate any abrasions of the palate or uvula. She was administered 10mg of IV Decadron for possible airway edema. Saturations maintained at 93-97% on room air. No SOB, cough or stridor reported. Patient without complaint upon my encounter. She was sleepy but arousable, able to answer questions and follow commands. at bedside at well. Meds administered prior to admission: Decadron 10mg IV Principal Diagnosis Throat trauma secondary to LMA, post-op malleolus fracture repair Discharge Exam Constitutional WD/WN, vitals as above + obese Eyes + anicteric sclerae ENMT external ear and nose normal, oropharynx normal (except small white scab posterior OP) Neck trachea midline, no thyromegaly Respiratory normal respiratory effort, lungs clear to auscultation Cardiovascular RRR, no murmur, no edema Chest (Breasts) Chest: normal inspection of chest Gastrointestinal (Abdomen) normal bowel sounds, soft, nontender, no hepatosplenomegaly Musculoskeletal Extremities: + extremities abnormal to inspection (RLE with splint and JOYCE wrap), no cyanosis and no clubbing Skin no rashes, warm and dry Neurologic moves all extremities and awake; no focal motor deficits Psychiatric A+Ox3, euthymic affect Lymphatic + lymphedema (legs bilat) Discharge Data Allergies Allergy/AdvReac Type Severity Reaction Status Date / Time Penicillins Allergy Intermediate buring Verified 09/06/21 12:10 sensation,itching Consultations 09/06/21 19:14 Consult Hospitalist Stat 09/06/21 19:15 Consult Hospitalist Routine 09/07/21 01:24 Consult Orthopedic Surgery Routine Procedures Performed Operation Date: 09/06/21 12:55 Actual Procedures p Right Ankle Open Reduction Internal Fixation Distal Medial Melleolus Fracture(Right) - Pilo Lo DO Ordered Studies 09/06/21 05:00 US - OR guided needle placemen Routine 09/06/21 12:55 FL ankle RT 2V Routine Hospital Course (1) [place] female with history of progressive MS with malleolar fracture s/p ORIF performed today by Dr. Lo. Successful surgery, no complications identified. Patient developed post-operative throat pain, pain with swallowing and bloody sputum. No stridor, no airway edema appreciated on exam. Most likely secondary to minor trauma from LMA. Dexamethasone given CXR negative exam of airway by Anesthesia and myself without any issues there is a small scab posterior OP I see and no further bleeding she is tolerating liquids diet and throat felt much better by next day POx normal stable for dc to home (2) History of ankle surgery: s/p right ORIF performed 09/06/21 -Pain control -Antiemetics -Bowel regimen pRN -Orthopedics consultation re: discharge planning (3) HTN (hypertension): Blood pressure presently elevated but having pain in back -Pain control with Morphine and oxycodone pRN -Patient presently not on medication for blood pressure -Continue to monitor at home (4) Multiple sclerosis: Patient with progressive MS. Wheelchair bound -Turn and position as needed -External catheter placed -Continue home medications - Oxybutynin, Gabapentin and Baclofen (5) Hypothyroidism: TSH within normal limits at 1.126 on 09/04/21 -Continue Synthroid 200mcg po daily (6) Lymphedema: Chronic. Unchanged -Leg elevation Ppx - SCDs, ok to start ASA 81 bid on discharge Code - Full per discussion with patient Dispo - dc to home Total Time Total Time Spent Total Time Spent (In Minutes): 35 min Discharge Plan Discharge Items Patient Disposition: Home - Self-Care Reason For Visit: POST-OP HEMOPTYSIS Discharge Diagnosis: Right medial malleolus fracture, post-op hemoptysis secondary to airway trauma Condition on Discharge: Fair Activity: Per Instructions section Weightbearing: Right non-weightbearing Non-emergency contact: Surgeon Call non-emergency contact if: your pain is not controlled, your pain is worsening and your temperature is above 101 Follow-up/Referrals: Charli Harman DO [Primary Care Provider] - (Follow up within 1-2 weeks) Diet: Full liquid and Heart Healthy Diet Comment: and slowly advance to soft diet Addtl Attending Provider Instructions: ACTIVITY RECOMMENDATIONS: Limitations: No weight bearing to affected limb at all times. SPECIAL CARE INSTRUCTIONS: * Take Aspirin 81 mg every 12 hours for 4 weeks for postoperative blood clot prophylaxis. Start the first dose tonight. * Some drainage onto the dressing is normal and is no cause for alarm. * Some swelling is natural especially after walking. * When resting, keep your foot elevated above the level of your heart. * Call [facility] if you notice: -Increased drainage -Fever over 101 degrees F -Severe constant pain BANDAGE: * Leave bandage/cast in place unless otherwise directed. * Keep bandage/cast dry at all times. FOLLOW UP VISIT WITH DR. LO If appointment is not already scheduled: Please call [facility] after you get home today to schedule a follow-up appointment for [address] Lo at . Addtl [place] Provider Instructions: Please take your usual pain medication as needed. The trauma to your airway has healed but if you develop worsening throat pain, trouble breathing, or cough up more blood, please return to the hospital. Pending Studies at Discharge: No Stand-Alone Forms: Anesthesia/Sedation, Adult, [facility] Medications and DC Order Prescriptions: New aspirin 81 mg tablet,delayed release (DR/EC) 81 mg PO BID Qty: 60 RF: 0 morphine [MS Contin] 15 mg tablet extended release 15 mg PO Q12H Qty: 6 RF: 0 naloxone [Narcan] 4 mg/actuation spray,non-aerosol 1 spray intranasal ONCE PRN (Reason: opioid overdose) Qty: 2 RF: 0 oxycodone 15 mg tablet 15 mg PO Q6H PRN (Reason: pain) Qty: 120 RF: 0 Continued triamcinolone acetonide 0.1 % ointment 1 applic topical BID Qty: 80 RF: 0 Ocrevus 30 mg/mL solution 600 mg IV .COMPLEX Qty: 20 RF: 1 (DME) Hospital Bed Misc See Rx Instructions .Route Qty: 1 RF: 0 gabapentin 600 mg tablet 600 mg PO TID 90 Days Qty: 270 RF: 6 baclofen 20 mg tablet 20 mg PO QID 90 Days Qty: 360 RF: 1 cholecalciferol (vitamin D3) 125 mcg (5,000 unit) capsule 125 mcg PO DAILY RF: 0 oxybutynin chloride 10 mg tablet extended release 24 hr 10 mg PO QAM RF: 0 famotidine 40 mg tablet 40 mg PO QAM RF: 0 duloxetine [Cymbalta] 60 mg capsule,delayed release(DR/EC) 60 mg PO QAM RF: 0 levothyroxine 100 mcg capsule 200 mcg PO QAM RF: 0 Discontinued oxycodone 10 mg tablet 10 mg PO .5 X PER DAY PRN (Reason: pain) Qty: 10 RF: 0 Discharge Orders: Discharge Order (Routine); Ordered 09/07/21 Ordered By: Casi Rose/Other Patient Handouts: DVT Post Op Prevention Admission Data Admit Date/Time: 09/06/21 19:40 Attending Provider: Casi Covarrubias Admit Provider: Arti Cotto Primary Care Provider: Charli Harman Other Providers: Pilo Lo ; Arti Cotto Coding Level of Care Code 49218 OBS Care - Discharge Diagnoses Bleeding R58 History of ankle surgery Z98.890 HTN (hypertension) I10 Multiple sclerosis G35 Hypothyroidism E03.9 Lymphedema I89.0
--- NOTE | 2021-09-08 17:44 | Operative Report (OR) ---
DATE OF PROCEDURE: 09/06/2021 PREOPERATIVE DIAGNOSIS: Right displaced medial malleolus fracture. POSTOPERATIVE DIAGNOSIS: Right displaced medial malleolus fracture. PROCEDURE: Open reduction and internal fixation of right medial malleolus fracture. SURGEON: Pilo Lo DO. CORRECTIONAL LIEUTENANT: Gamaliel Levi PA-C who was present for patient positioning, sterile prep and drape, m anagement of retractors and instruments. He was present through the critical portions of the case inc luding wound closure, application of sterile dressing and transport of the patient to recovery. ANESTHESIA: General, regional. SPECIMENS: None. DRAINS: None. COMPLICATIONS: None. BLOOD LOSS: 1 mL PERTINENT HISTORY: This is a 55-year-old female who sustained a twisting injury of her right ankle. She had displaced right medial malleolus fracture, confirmed on radiographs. The patient was then s cheduled for surgery as indicated. All potential risks, benefits, complications, alternatives, rehab, potential for incomplete relief of symptoms, need for further surgery, DVT, PE, , persistent pain, swelling, scarring, weakness, n eurovascular injury, wound complications and hardware failure were discussed with the patient includi ng nonunion, malunion. DESCRIPTION OF PROCEDURE: The patient had a regional anesthetic performed. She was taken to the ope rative suite and placed supine on the operating table. After review of consent and identification of proper operative site, the patient was then anesthetized, LMA was placed. Tourniquet was applied hi gh on the right lower extremity over cast padding. Right lower extremity was then sterilely prepped and draped in the usual fashion. After surgical timeout was performed, a radiographic assistance was used to place two small percutaneous incisions over the medial malleolus, followed by placement of t wo cannulated screws placed percutaneously. One was the joystick and the other to secure fixation. The second screw was then advanced to stabilize the medial malleolar fracture under live fluoroscopic assistance. Next, stress views were performed to confirm accurate placement and stabilization of the fracture sit es. The incision was then copiously irrigated with sterile saline until clear. The incision was the n closed using nylon sutures and then a sterile compressive dressing and bulky Hussain De Los Santos plaster s plint was applied and overwrapped in Saul wrap. Tourniquet was released, the patient was awakened and taken to recovery in stable condition. Job ID: [id number]
== END 2021-09-07 14:20 | disposition home or self-care (01) ==
LOC: ASU 11:43 → INTOOBSV 19:40 → SUATTDRO 19:40 → 3N 19:40

== ENCOUNTER 2022-08-20 20:25 | Inpatient (IN) ==
--- NOTE | 2022-08-20 20:53 | Emergency Department Note ---
Impression & Plan Sepsis, Altered mental status, Leukocytosis ED Provider Note NAME: JULI ARROYO AGE: 56 SEX: F : 1965 ARRIVES VIA: Ambulance INFORMANT: EMS and nurse ED PROVIDER(S): Jericho Gayle DO CHIEF COMPLAINT: Unresponsive HPI: Patient is a 56-year-old female with a past medical history of multiple sclerosis, idiopathic polyneuropathy, who presents to the ER for unknown d owntime. Patient was found unresponsive next to the toilet. She was brought in by EMS. Patient history is otherwise limited. Per nurse EMS noted the patient has these episodes intermittently when she has a MS flares. No recorded fevers. Nothing out of the ordinary and no new change in meds per EMS report. notes that sometimes this does happen to her when she becomes confused and very sleepy. PAST MEDICAL HISTORY:See Below PAST SURGICAL HISTORY:See Below FAMILY HISTORY:See Below SOCIAL HISTORY:See Below HOME MEDICATIONS:See Below ALLERGIES:See Below VITALS:See Below PHYSICAL EXAMINATION: GENERAL: Sitting up in bed, on 6 L nasal cannula nonverbal HEAD: NC/AT EYE EXAM: normal conjunctiva. PERRL and EOM's grossly intact. OROPHARYNX: no exudate, no erythema, lips, buccal mucosa, and tongue normal and mucous membranes are moist NECK: supple, no nuchal rigidity, no adenopathy, non-tender LUNGS: Clear to auscultation. Normal chest wall mechanics HEART: no murmurs, S1 normal and S2 normal ABDOMEN: abdomen soft, non-tender, normo-active bowel sounds, no masses, no rebound or guarding. UPPER EXTREMITIES: upper extremities are grossly normal. LOWER EXTREMITIES: No pitting edema. NEURO EXAM: Opens eyes to painful stimuli and withdraws to pain in the lower extremities. Does not move left upper extremity or right upper. MEDICAL DECISION MAKING: IV was established blood work was obtained. External records were reviewed. Labs show leukocytosis of 23,000. Hemoglobin elevated at 18 likely secondary to dehydration. INR unremarkable. VBG with pH 7.25 and a CO2 of 62. BMP with creatinine 1.22. Lactate was elevated at 4. Calcium significantly elevated at 12.2. Troponin was elevated as well as Pro-Ahmet and TSH. UA does have nitrites leuks but only 1-5 whites. Favor the nitrates are likely secondary to the bilirubin. Favor this is probably not the source of infection. Patient was covered with cefepime. She was given 2 L of IV fluids which was more than 30 cc/kg of ideal body weight. Lactate did trend down. She has no tenderness on abdominal exam. Chest x-ray was clean. CT head was negative. Discussed with hospitalist for further evaluation and management. Triage Nursing notes reviewed. Limited review of prior medical records performed Vital Signs: reviewed and remarkable for tachy Differential diagnosis: Differential diagnoses includes but is not limited to toxic, metabolic, infectious, traumatic, cardiac, neurologic, hematologic, psychiatric and inflammatory etiologies. ER treatment provided: See below Diagnostics interpreted by me include EKG and cardiac monitoring as listed below: -Cardiac Monitoring: An order was placed for continuous cardiac monitoring. The monitor shows a rate of 102 with sinus rhythm. -ECG: Sinus tachycardia rate of 102 Normal axis T wave inversion in the high lateral leads as well as V2 and V3 Nonspecific ST wave changes in the lateral leads QTc 424 EKG changes are new from September 04 -Laboratory studies:Interpreted by me as stated above in MDM and shown below. Imaging studies: Xrays: As interpreted by me: Portable AP upright 1 view of the chest shows no pneumonia CTs show: CT head was negative. CT cervical spine was negative Consultation(s): Discussed with Susan Cotto for further evaluation management and treatment Procedures:none Critical Care: I have personally spent 32 minutes of critical care time in the direct management of this patient. This includes bedside care, interpretation of diagnostic studies, and testing, discussion with consultants, patient, and family members, and other required patient management activities. This 32 minutes is in excess of all separately billable procedures. Past Med/Surg History Medical History Bilateral lower extremity edema GERD (gastroesophageal reflux disease) History of seizure 03/2021>HOSPITALIZED AT [facility]-episodes of tremulousness with confusion, EEG negative per neurology HTN (hypertension) PT DENIES Hypothyroidism Indigestion Lymphedema Multiple sclerosis W/C BOUND>UNABLE TO AMBULATE Obesity Seizure-like activity Surgical History H/O arthroscopy of left knee History of tooth extraction Presence of intrathecal pump PAIN PUMP IN ABDOMEN>PT STATES NOT ON OR WORKING S/P ankle fusion S/P tonsillectomy Family History Father Stroke Mother Diabetes Hypothyroidism Brother Hypothyroidism Other Colorectal cancer No family history of adverse response to anesthesia Denies family history of Ovarian cancer Prostate cancer Myocardial infarction Breast cancer Social History Smoking Status: Former smoker Tobacco Type: Cigarettes Age Started Using Tobacco: 18; Age Quit Using Tobacco: 41; packs per day: 0.5; Cigarettes Per Day: 10; Second Hand Exposure: No; Preferred Language: Kazakh Communication Ability: Effective Visual Impairment: No Limitations Hearing Ability: Normal Dip Brazier Required: No Beliefs That Will Affect Care: None marital status: Current Living Situation: Family Current Living Situation Comment: spouse and two children current occupational status: retired and disabled current occupation: Stopped working in 2006 How many Children do You have: 4 Feels Safe at Home: Yes Childhood Exposure to Second-Hand Smoke: No Diet Comment: regular caffeine: Yes during the past year weight has: increased > 10 lbs Dental Care, Regularly: Yes Physical Activity Frequency: Does not Exercise Seatbelt Use: always Sunscreen Use: Yes Assistive Devices: Wheelchair Allergies Allergies Allergy/AdvReac Type Severity Reaction Status Date / Time Penicillins Allergy Intermediate buring Verified 08/20/22 21:25 sensation,itching Home Meds Home Medications Medication Instructions Recorded Confirmed cholecalciferol (vitamin D3) 125 125 mcg PO DAILY 11/15/20 08/20/22 mcg (5,000 unit) capsule oxycodone 10 mg tablet 10 mg PO Q4H PRN Pain 08/20/22 08/20/22 Previous Rx's Medication Instructions Recorded Hospital Bed Homecare (Hospital #1 ea 02/14/21 Bed) aspirin 81 mg tablet,delayed 81 mg PO BID #60 tabs 09/06/21 release naloxone 4 mg/actuation nasal 1 spray intranasal ONCE PRN opioid 09/06/21 spray (Narcan) overdose #2 ea ocrelizumab 30 mg/mL intravenous 600 mg (20 mL) IV .COMPLEX #20 mL 12/11/21 solution (Ocrevus) compr.stocking,knee,long,large #12 ea 02/13/22 duloxetine 60 mg capsule,delayed 60 mg PO BID #180 caps 02/20/22 release (Cymbalta) famotidine 40 mg tablet 40 mg PO BID #180 tabs 05/14/22 baclofen 20 mg tablet 20 mg PO QID 90 days #360 tabs 05/20/22 levothyroxine 100 mcg capsule 200 mcg PO QAM #180 caps 06/12/22 gabapentin 600 mg tablet 600 mg PO TID 90 days #270 tabs 07/29/22 oxybutynin chloride 10 mg 10 mg PO QAM 90 days #90 tabs 07/29/22 tablet,extended release 24 hr Results & Data (ED) Vital Signs Vital Signs - 24 hr 08/20/22 20:37 08/20/22 20:49 08/20/22 21:56 Temperature Temperature Source Pulse Rate 100 H 99 H Pulse Rate [Right Finger] 107 H Pulse Rate from SpO2 Sensor Respiratory Rate 20 15 Blood Pressure Blood Pressure [Right Arm] 136/115 H Blood Pressure Mean Blood Pressure Mean [Right Arm] 122 Blood Pressure Position Pulse Oximetry 97 97 Oxygen Delivery Method Nasal Cannula Oxygen Flow Rate 2 Sepsis Recent Fever Within 48 Hours Sepsis New/Unexplained Change in Mental Status Sepsis Action Taken by Nursing Oxygen Flow Rate - Titration Pulse Oximetry Post Tiitration 08/20/22 20:49 08/20/22 20:34 08/20/22 20:33 Temperature 36.9 C Temperature Source Oral Pulse Rate 101 H 100 H Pulse Rate [Right Finger] Pulse Rate from SpO2 Sensor 100 H Respiratory Rate 14 16 Blood Pressure 147/123 H 150/111 H Blood Pressure [Right Arm] Blood Pressure Mean 131 124 Blood Pressure Mean [Right Arm] Blood Pressure Position Lying Pulse Oximetry 96 100 100 Oxygen Delivery Method Nasal Cannula Nasal Cannula Nasal Cannula Oxygen Flow Rate 2 6 2 Sepsis Recent Fever Within 48 Hours No Sepsis New/Unexplained Change in Mental Status No Sepsis Action Taken by Nursing No Action Required Oxygen Flow Rate - Titration 2 Pulse Oximetry Post Tiitration 96 08/20/22 21:35 08/20/22 21:56 08/20/22 22:04 Temperature Temperature Source Pulse Rate 109 H 105 H 100 H Pulse Rate [Right Finger] Pulse Rate from SpO2 Sensor 107 H 100 H Respiratory Rate 20 19 18 Blood Pressure 149/106 H 136/115 H 146/112 H Blood Pressure [Right Arm] Blood Pressure Mean 120 122 123 Blood Pressure Mean [Right Arm] Blood Pressure Position Pulse Oximetry 97 96 99 Oxygen Delivery Method Nasal Cannula Nasal Cannula Nasal Cannula Oxygen Flow Rate 2 2 2 Sepsis Recent Fever Within 48 Hours Sepsis New/Unexplained Change in Mental Status Sepsis Action Taken by Nursing Oxygen Flow Rate - Titration Pulse Oximetry Post Tiitration 08/20/22 22:31 08/20/22 23:00 08/20/22 23:00 Temperature Temperature Source Pulse Rate 105 H 90 Pulse Rate [Right Finger] Pulse Rate from SpO2 Sensor 105 H Respiratory Rate 16 16 Blood Pressure 156/126 H 149/105 H 149/105 H Blood Pressure [Right Arm] Blood Pressure Mean 136 119 119 Blood Pressure Mean [Right Arm] Blood Pressure Position Pulse Oximetry 97 98 Oxygen Delivery Method Nasal Cannula Nasal Cannula Oxygen Flow Rate 2 2 Sepsis Recent Fever Within 48 Hours Sepsis New/Unexplained Change in Mental Status Sepsis Action Taken by Nursing Oxygen Flow Rate - Titration Pulse Oximetry Post Tiitration 08/20/22 23:06 08/20/22 23:06 Temperature Temperature Source Pulse Rate 90 Pulse Rate [Right Finger] Pulse Rate from SpO2 Sensor 90 Respiratory Rate 12 Blood Pressure 133/106 H Blood Pressure [Right Arm] Blood Pressure Mean 115 Blood Pressure Mean [Right Arm] Blood Pressure Position Pulse Oximetry 98 Oxygen Delivery Method Oxygen Flow Rate Sepsis Recent Fever Within 48 Hours Sepsis New/Unexplained Change in Mental Status Sepsis Action Taken by Nursing Oxygen Flow Rate - Titration Pulse Oximetry Post Tiitration Laboratory Data 08/20/22 20:30 08/20/22 20:30 Lab Results 08/20/22 08/20/22 08/20/22 Range/Units 20:30 20:30 20:30 WBC 23.15 H (4.8-10.8) K/ul RBC 6.30 H (4.20-5.40) M/uL Hgb 17.9 H (12.0-16.0) g/dl Hct 57.3 H (37.0-47.0) % MCV 91.0 (80.0-100.0) fL MCH 28.4 (25.0-34.0) pg MCHC 31.2 L (32.0-36.0) g/dL RDW Std Deviation 50.5 H (36.4-46.3) fL RDW Coeff of Juanjo 15.4 H (11.5-14.5) % Plt Count 356 (130-400) K/uL MPV 13.4 H (9.4-12.4) fL Immature Gran % (Auto) 0.5 % Neut % (Auto) 86.9 % Lymph % (Auto) 3.7 % [place] % (Auto) 8.6 % Eos % (Auto) 0.0 % Baso % (Auto) 0.3 % Neut # (Auto) 20.13 H (1.40-6.50) K/uL Lymph # (Auto) 0.85 L (1.2-3.4) K/uL [place] # (Auto) 1.99 H (0.11-0.59) K/uL Eos # (Auto) 0.00 (0-0.50) K/uL Baso # (Auto) 0.06 (0-0.2) K/uL Immature Gran # (Auto) 0.12 (0.01-0.20) K/uL RBC Morphology Unremarkable PT Cancelled INR Cancelled VBG pH (7.36-7.41) VBG pCO2 (38-50) mmHg VBG pO2 mmHg VBG HCO3 mmol/L VBG O2 Saturation % VBG Base Excess mEq/L Sodium 137 (136-145) mmol/L Potassium 4.8 (3.5-5.1) mmol/L Chloride 100 (98-107) mmol/L Carbon Dioxide 22 (21-32) mmol/L Anion Gap 15 H (3-11) BUN 23 (6-23) mg/dl Creatinine 1.22 H (0.6-1.2) mg/dl Est Cr Clr Drug Dosing 44.9 ml/min Est GFR ( Amer) 58.2 ml/min Est GFR (Non-Af Amer) 50.2 ml/min BUN/Creatinine Ratio 18.9 (10-20) Glucose 133 H (70-99(Fasting)) mg/dl POC Glucose (70-99) mg/dl Lactate (0.4-2.0) mmol/L Calcium 12.2 H* (8.6-10.3) mg/dl Ionized Calcium (1.12-1.32) mmol/L Magnesium 2.5 H (1.7-2.4) mg/dl Total Bilirubin 0.5 (0.2-1.0) mg/dl Direct Bilirubin 0.0 (0-0.2) mg/dl AST 27 (13-39) U/L ALT 19 (7-52) U/L Alkaline Phosphatase 131 H (34-104) U/L Ammonia (18-72) umol/L Total Creatine Kinase Troponin I High Sens 24.2 H (0-14) pg/ml Total Protein 9.6 H (6.0-8.3) gm/dl Albumin 4.5 (3.4-5.0) gm/dl Procalcitonin TSH (0.300-4.500) uIu/ml Urine Color Urine Appearance (Clear) Urine pH (4.5-7.5) Ur Specific Power (1.000-1.030) Urine Protein (Negative) Urine Glucose (UA) (Negative) Urine Ketones (Negative) Urine Blood (Negative) Urine Nitrite (Negative) Urine Bilirubin (Negative) Urine Urobilinogen (Negative) Ur Leukocyte Esterase (Negative) Urine WBC (Auto) (0-5) /hpf Urine RBC (Auto) (0-4) /hpf U Hyaline Cast (Auto) (0-5) /lpf U Epithel Cells (Auto) (0-5) /lpf Urine Bacteria (Auto) (Negative) SARS-CoV-2, RNA, NAAT (NEGATIVE) 08/20/22 08/20/22 08/20/22 Range/Units 20:30 20:57 21:00 WBC (4.8-10.8) K/ul RBC (4.20-5.40) M/uL Hgb (12.0-16.0) g/dl Hct (37.0-47.0) % MCV (80.0-100.0) fL MCH (25.0-34.0) pg MCHC (32.0-36.0) g/dL RDW Std Deviation (36.4-46.3) fL RDW Coeff of Juanjo (11.5-14.5) % Plt Count (130-400) K/uL MPV (9.4-12.4) fL Immature Gran % (Auto) % Neut % (Auto) % Lymph % (Auto) % [place] % (Auto) % Eos % (Auto) % Baso % (Auto) % Neut # (Auto) (1.40-6.50) K/uL Lymph # (Auto) (1.2-3.4) K/uL [place] # (Auto) (0.11-0.59) K/uL Eos # (Auto) (0-0.50) K/uL Baso # (Auto) (0-0.2) K/uL Immature Gran # (Auto) (0.01-0.20) K/uL RBC Morphology PT INR VBG pH (7.36-7.41) VBG pCO2 (38-50) mmHg VBG pO2 mmHg VBG HCO3 mmol/L VBG O2 Saturation % VBG Base Excess mEq/L Sodium (136-145) mmol/L Potassium (3.5-5.1) mmol/L Chloride (98-107) mmol/L Carbon Dioxide (21-32) mmol/L Anion Gap (3-11) BUN (6-23) mg/dl Creatinine (0.6-1.2) mg/dl Est Cr Clr Drug Dosing ml/min Est GFR ( Amer) ml/min Est GFR (Non-Af Amer) ml/min BUN/Creatinine Ratio (10-20) Glucose (70-99(Fasting)) mg/dl POC Glucose 135 H (70-99) mg/dl Lactate (0.4-2.0) mmol/L Calcium (8.6-10.3) mg/dl Ionized Calcium (1.12-1.32) mmol/L Magnesium (1.7-2.4) mg/dl Total Bilirubin (0.2-1.0) mg/dl Direct Bilirubin (0-0.2) mg/dl AST (13-39) U/L ALT (7-52) U/L Alkaline Phosphatase (34-104) U/L Ammonia (18-72) umol/L Total Creatine Kinase Troponin I High Sens (0-14) pg/ml Total Protein (6.0-8.3) gm/dl Albumin (3.4-5.0) gm/dl Procalcitonin Cancelled TSH (0.300-4.500) uIu/ml Urine Color Urine Appearance (Clear) Urine pH (4.5-7.5) Ur Specific Power (1.000-1.030) Urine Protein (Negative) Urine Glucose (UA) (Negative) Urine Ketones (Negative) Urine Blood (Negative) Urine Nitrite (Negative) Urine Bilirubin (Negative) Urine Urobilinogen (Negative) Ur Leukocyte Esterase (Negative) Urine WBC (Auto) (0-5) /hpf Urine RBC (Auto) (0-4) /hpf U Hyaline Cast (Auto) (0-5) /lpf U Epithel Cells (Auto) (0-5) /lpf Urine Bacteria (Auto) (Negative) SARS-CoV-2, RNA, NAAT NEGATIVE (NEGATIVE) 08/20/22 08/20/22 08/20/22 Range/Units 21:14 21:27 22:06 WBC (4.8-10.8) K/ul RBC (4.20-5.40) M/uL Hgb (12.0-16.0) g/dl Hct (37.0-47.0) % MCV (80.0-100.0) fL MCH (25.0-34.0) pg MCHC (32.0-36.0) g/dL RDW Std Deviation (36.4-46.3) fL RDW Coeff of Juanjo (11.5-14.5) % Plt Count (130-400) K/uL MPV (9.4-12.4) fL Immature Gran % (Auto) % Neut % (Auto) % Lymph % (Auto) % [place] % (Auto) % Eos % (Auto) % Baso % (Auto) % Neut # (Auto) (1.40-6.50) K/uL Lymph # (Auto) (1.2-3.4) K/uL [place] # (Auto) (0.11-0.59) K/uL Eos # (Auto) (0-0.50) K/uL Baso # (Auto) (0-0.2) K/uL Immature Gran # (Auto) (0.01-0.20) K/uL RBC Morphology PT INR VBG pH 7.25 L (7.36-7.41) VBG pCO2 62 H (38-50) mmHg VBG pO2 32 mmHg VBG HCO3 27 mmol/L VBG O2 Saturation < 60.0 % VBG Base Excess -1.4 mEq/L Sodium (136-145) mmol/L Potassium (3.5-5.1) mmol/L Chloride (98-107) mmol/L Carbon Dioxide (21-32) mmol/L Anion Gap (3-11) BUN (6-23) mg/dl Creatinine (0.6-1.2) mg/dl Est Cr Clr Drug Dosing ml/min Est GFR ( Amer) ml/min Est GFR (Non-Af Amer) ml/min BUN/Creatinine Ratio (10-20) Glucose (70-99(Fasting)) mg/dl POC Glucose (70-99) mg/dl Lactate 4.3 H* (0.4-2.0) mmol/L Calcium (8.6-10.3) mg/dl Ionized Calcium (1.12-1.32) mmol/L Magnesium (1.7-2.4) mg/dl Total Bilirubin (0.2-1.0) mg/dl Direct Bilirubin (0-0.2) mg/dl AST (13-39) U/L ALT (7-52) U/L Alkaline Phosphatase (34-104) U/L Ammonia (18-72) umol/L Total Creatine Kinase Troponin I High Sens (0-14) pg/ml Total Protein (6.0-8.3) gm/dl Albumin (3.4-5.0) gm/dl Procalcitonin TSH (0.300-4.500) uIu/ml Urine Color [place] Urine Appearance Clear (Clear) Urine pH 5.5 (4.5-7.5) Ur Specific Power 1.029 (1.000-1.030) Urine Protein Trace H (Negative) Urine Glucose (UA) Negative (Negative) Urine Ketones Trace H (Negative) Urine Blood Negative (Negative) Urine Nitrite Positive A (Negative) Urine Bilirubin 1+ H (Negative) Urine Urobilinogen Negative (Negative) Ur Leukocyte Esterase 1+ H (Negative) Urine WBC (Auto) 1-5 (0-5) /hpf Urine RBC (Auto) 0-4 (0-4) /hpf U Hyaline Cast (Auto) 5-10 H (0-5) /lpf U Epithel Cells (Auto) 20-30 H (0-5) /lpf Urine Bacteria (Auto) Negative (Negative) SARS-CoV-2, RNA, NAAT (NEGATIVE) 08/20/22 08/20/22 08/20/22 Range/Units 22:19 22:19 22:19 WBC (4.8-10.8) K/ul RBC (4.20-5.40) M/uL Hgb (12.0-16.0) g/dl Hct (37.0-47.0) % MCV (80.0-100.0) fL MCH (25.0-34.0) pg MCHC (32.0-36.0) g/dL RDW Std Deviation (36.4-46.3) fL RDW Coeff of Juanjo (11.5-14.5) % Plt Count (130-400) K/uL MPV (9.4-12.4) fL Immature Gran % (Auto) % Neut % (Auto) % Lymph % (Auto) % [place] % (Auto) % Eos % (Auto) % Baso % (Auto) % Neut # (Auto) (1.40-6.50) K/uL Lymph # (Auto) (1.2-3.4) K/uL [place] # (Auto) (0.11-0.59) K/uL Eos # (Auto) (0-0.50) K/uL Baso # (Auto) (0-0.2) K/uL Immature Gran # (Auto) (0.01-0.20) K/uL RBC Morphology PT Cancelled INR Cancelled VBG pH (7.36-7.41) VBG pCO2 (38-50) mmHg VBG pO2 mmHg VBG HCO3 mmol/L VBG O2 Saturation % VBG Base Excess mEq/L Sodium (136-145) mmol/L Potassium (3.5-5.1) mmol/L Chloride (98-107) mmol/L Carbon Dioxide (21-32) mmol/L Anion Gap (3-11) BUN (6-23) mg/dl Creatinine (0.6-1.2) mg/dl Est Cr Clr Drug Dosing ml/min Est GFR ( Amer) ml/min Est GFR (Non-Af Amer) ml/min BUN/Creatinine Ratio (10-20) Glucose (70-99(Fasting)) mg/dl POC Glucose (70-99) mg/dl Lactate (0.4-2.0) mmol/L Calcium (8.6-10.3) mg/dl Ionized Calcium (1.12-1.32) mmol/L Magnesium (1.7-2.4) mg/dl Total Bilirubin (0.2-1.0) mg/dl Direct Bilirubin (0-0.2) mg/dl AST (13-39) U/L ALT (7-52) U/L Alkaline Phosphatase (34-104) U/L Ammonia (18-72) umol/L Total Creatine Kinase Cancelled Troponin I High Sens (0-14) pg/ml Total Protein (6.0-8.3) gm/dl Albumin (3.4-5.0) gm/dl Procalcitonin 1.69 H TSH (0.300-4.500) uIu/ml Urine Color Urine Appearance (Clear) Urine pH (4.5-7.5) Ur Specific Power (1.000-1.030) Urine Protein (Negative) Urine Glucose (UA) (Negative) Urine Ketones (Negative) Urine Blood (Negative) Urine Nitrite (Negative) Urine Bilirubin (Negative) Urine Urobilinogen (Negative) Ur Leukocyte Esterase (Negative) Urine WBC (Auto) (0-5) /hpf Urine RBC (Auto) (0-4) /hpf U Hyaline Cast (Auto) (0-5) /lpf U Epithel Cells (Auto) (0-5) /lpf Urine Bacteria (Auto) (Negative) SARS-CoV-2, RNA, NAAT (NEGATIVE) 08/20/22 08/20/22 08/20/22 Range/Units 22:19 22:55 23:20 WBC (4.8-10.8) K/ul RBC (4.20-5.40) M/uL Hgb (12.0-16.0) g/dl Hct (37.0-47.0) % MCV (80.0-100.0) fL MCH (25.0-34.0) pg MCHC (32.0-36.0) g/dL RDW Std Deviation (36.4-46.3) fL RDW Coeff of Juanjo (11.5-14.5) % Plt Count (130-400) K/uL MPV (9.4-12.4) fL Immature Gran % (Auto) % Neut % (Auto) % Lymph % (Auto) % [place] % (Auto) % Eos % (Auto) % Baso % (Auto) % Neut # (Auto) (1.40-6.50) K/uL Lymph # (Auto) (1.2-3.4) K/uL [place] # (Auto) (0.11-0.59) K/uL Eos # (Auto) (0-0.50) K/uL Baso # (Auto) (0-0.2) K/uL Immature Gran # (Auto) (0.01-0.20) K/uL RBC Morphology PT 11.5 INR 1.1 VBG pH (7.36-7.41) VBG pCO2 (38-50) mmHg VBG pO2 mmHg VBG HCO3 mmol/L VBG O2 Saturation % VBG Base Excess mEq/L Sodium (136-145) mmol/L Potassium (3.5-5.1) mmol/L Chloride (98-107) mmol/L Carbon Dioxide (21-32) mmol/L Anion Gap (3-11) BUN (6-23) mg/dl Creatinine (0.6-1.2) mg/dl Est Cr Clr Drug Dosing ml/min Est GFR ( Amer) ml/min Est GFR (Non-Af Amer) ml/min BUN/Creatinine Ratio (10-20) Glucose (70-99(Fasting)) mg/dl POC Glucose (70-99) mg/dl Lactate 4.0 H* (0.4-2.0) mmol/L Calcium (8.6-10.3) mg/dl Ionized Calcium (1.12-1.32) mmol/L Magnesium (1.7-2.4) mg/dl Total Bilirubin (0.2-1.0) mg/dl Direct Bilirubin (0-0.2) mg/dl AST (13-39) U/L ALT (7-52) U/L Alkaline Phosphatase (34-104) U/L Ammonia (18-72) umol/L Total Creatine Kinase Troponin I High Sens (0-14) pg/ml Total Protein (6.0-8.3) gm/dl Albumin (3.4-5.0) gm/dl Procalcitonin TSH 41.717 H (0.300-4.500) uIu/ml Urine Color Urine Appearance (Clear) Urine pH (4.5-7.5) Ur Specific Power (1.000-1.030) Urine Protein (Negative) Urine Glucose (UA) (Negative) Urine Ketones (Negative) Urine Blood (Negative) Urine Nitrite (Negative) Urine Bilirubin (Negative) Urine Urobilinogen (Negative) Ur Leukocyte Esterase (Negative) Urine WBC (Auto) (0-5) /hpf Urine RBC (Auto) (0-4) /hpf U Hyaline Cast (Auto) (0-5) /lpf U Epithel Cells (Auto) (0-5) /lpf Urine Bacteria (Auto) (Negative) SARS-CoV-2, RNA, NAAT (NEGATIVE) 08/20/22 08/20/22 08/20/22 Range/Units 23:20 23:20 23:20 WBC (4.8-10.8) K/ul RBC (4.20-5.40) M/uL Hgb (12.0-16.0) g/dl Hct (37.0-47.0) % MCV (80.0-100.0) fL MCH (25.0-34.0) pg MCHC (32.0-36.0) g/dL RDW Std Deviation (36.4-46.3) fL RDW Coeff of Juanjo (11.5-14.5) % Plt Count (130-400) K/uL MPV (9.4-12.4) fL Immature Gran % (Auto) % Neut % (Auto) % Lymph % (Auto) % [place] % (Auto) % Eos % (Auto) % Baso % (Auto) % Neut # (Auto) (1.40-6.50) K/uL Lymph # (Auto) (1.2-3.4) K/uL [place] # (Auto) (0.11-0.59) K/uL Eos # (Auto) (0-0.50) K/uL Baso # (Auto) (0-0.2) K/uL Immature Gran # (Auto) (0.01-0.20) K/uL RBC Morphology PT INR VBG pH (7.36-7.41) VBG pCO2 (38-50) mmHg VBG pO2 mmHg VBG HCO3 mmol/L VBG O2 Saturation % VBG Base Excess mEq/L Sodium (136-145) mmol/L Potassium (3.5-5.1) mmol/L Chloride (98-107) mmol/L Carbon Dioxide (21-32) mmol/L Anion Gap (3-11) BUN (6-23) mg/dl Creatinine (0.6-1.2) mg/dl Est Cr Clr Drug Dosing ml/min Est GFR ( Amer) ml/min Est GFR (Non-Af Amer) ml/min BUN/Creatinine Ratio (10-20) Glucose (70-99(Fasting)) mg/dl POC Glucose (70-99) mg/dl Lactate (0.4-2.0) mmol/L Calcium (8.6-10.3) mg/dl Ionized Calcium 1.27 (1.12-1.32) mmol/L Magnesium (1.7-2.4) mg/dl Total Bilirubin (0.2-1.0) mg/dl Direct Bilirubin (0-0.2) mg/dl AST (13-39) U/L ALT (7-52) U/L Alkaline Phosphatase (34-104) U/L Ammonia 30.0 (18-72) umol/L Total Creatine Kinase 56 Troponin I High Sens 61.6 H* D (0-14) pg/ml Total Protein (6.0-8.3) gm/dl Albumin (3.4-5.0) gm/dl Procalcitonin TSH (0.300-4.500) uIu/ml Urine Color Urine Appearance (Clear) Urine pH (4.5-7.5) Ur Specific Power (1.000-1.030) Urine Protein (Negative) Urine Glucose (UA) (Negative) Urine Ketones (Negative) Urine Blood (Negative) Urine Nitrite (Negative) Urine Bilirubin (Negative) Urine Urobilinogen (Negative) Ur Leukocyte Esterase (Negative) Urine WBC (Auto) (0-5) /hpf Urine RBC (Auto) (0-4) /hpf U Hyaline Cast (Auto) (0-5) /lpf U Epithel Cells (Auto) (0-5) /lpf Urine Bacteria (Auto) (Negative) SARS-CoV-2, RNA, NAAT (NEGATIVE) Administered Medications Lactated Ringer's (Lr) 1,000 mls @ 125 mls/hr IV .Q8H EFREN Stop: 08/22/22 00:53 Last Admin: 08/21/22 01:40 Dose: 125 mls/hr Documented By: RUBINA Vancomycin HCl 2,250 mg/ (Sodium Chloride) 545 mls @ 200 mls/hr IV NOW ONE; Protocol Stop: 08/21/22 03:58 Last Admin: 08/21/22 01:39 Dose: 200 mls/hr Documented By: RUBINA Discontinued Medications Cefepime HCl (Maxipime) 2,000 mg in 20 mls @ 5 mls/min IV NOW STA; Protocol Stop: 08/20/22 21:56 Last Admin: 08/20/22 22:13 Dose: 5 mls/min Documented By: QGV Sodium Chloride (Nss 1000ml) 2,000 mls @ 999 mls/hr IV .Q2H1M ONE Stop: 08/21/22 00:19 Last Infusion: 08/21/22 01:58 Dose: 0 mls/hr Documented By: Admin: 08/20/22 22:40 Dose: 999 mls/hr Documented By: QGV Imaging Data Radiologist's Impression: Cervical Spine CT 08/20/22 20:49 Exam(s): CT C SPINE EXAM: CT Cervical Spine Without Intravenous Contrast CLINICAL HISTORY: Reason for exam: ams. TECHNIQUE: Axial computed tomography images of the cervical spine without intravenous contrast. CTDI is 22.52 mGy and DLP is 479.2 mGy-cm. Automated exposure control was utilized for the study. A dose lowering technique was utilized adhering to the principles of ALARA. COMPARISON: None. FINDINGS: Vertebrae: No acute fracture. Discs/spinal canal/neural foramina: Mild degenerative change in cervical spine. No high-grade spinal canal stenosis. Soft tissues: Unremarkable. Vasculature: Atherosclerotic calcifications of the carotid bifurcations. IMPRESSION: No acute fracture or traumatic malalignment of the cervical spine. Electronically signed by: Devang Chapa MD 08/20/22 21:[address] 08/20/22 20:49 Exam(s): CT HEAD Without Contrast EXAM: CT Head Without Intravenous Contrast CLINICAL HISTORY: Reason for exam: ams. TECHNIQUE: Axial computed tomography images of the head/brain without intravenous contrast. CTDI is 54.78 mGy and DLP is 994.59 mGy-cm. Automated exposure control was utilized for the study. A dose lowering technique was utilized adhering to the principles of ALARA. COMPARISON: CT head 03/01/2021. FINDINGS: Brain: Global parenchymal volume loss with chronic microvascular ischemic changes. No hemorrhage. Ventricles: Unremarkable. No ventriculomegaly. Bones/joints: Unremarkable. No acute fracture. Soft tissues: Unremarkable. Sinuses: Unremarkable as visualized. Mastoid air cells: Unremarkable as visualized. No mastoid effusion. IMPRESSION: 1. No intracranial hemorrhage or other acute intracranial abnormality. 2. Global parenchymal volume loss with chronic microvascular ischemic changes. Electronically signed by: Devang Chapa MD 08/20/22 21:55 PM Discharge Plan Visit Data Chief Complaint: Altered Mental Status ED Provider: Jericho Gayle Discharge Problem: Sepsis, Altered mental status, Leukocytosis Patient Disposition: Admitted As Inpatient Discharge Instructions Interventions: ED Discharge Assessment Last Done: 08/21/22 00:37
[2022-08-20 21:31] LABS: Potassium 4.8 mmol/L (3.5-5.1)
[2022-08-20 21:32] LABS: Albumin Level 4.5 gm/dl (3.4-5.0); BUN Creatinine Ratio 18.9 (10-20); Bilirubin,Total 0.5 mg/dl (0.2-1.0); Calcium 12.2 mg/dl (8.6-10.3); Creatinine Clr Calc Pharmacy 44.9 ml/min; Est GFR (African American) 58.2 ml/min; Est GFR (Non-African American) 50.2 ml/min; Magnesium 2.5 mg/dl (1.7-2.4); Total Protein 9.6 gm/dl (6.0-8.3); Troponin I High Sensitivity 24.2 pg/ml (0-14)
[2022-08-20 21:52] LABS: Base Excess VBG -1.4 mEq/L; HCO3 VBG 27 mmol/L; Oxygen Saturation VBG < 60.0 %; PCO2 VBG 62 mmHg (38-50); PO2 VBG 32 mmHg; pH VBG 7.25 (7.36-7.41)
[2022-08-20] MEDS ORDERED: CEFEPIME 2,000 MG/20 ML VIAL IV STA (21:53)
--- NOTE | 2022-08-20 21:56 | CT Scan Report ---
Exam(s): CT HEAD Without Contrast EXAM: CT Head Without Intravenous Contrast CLINICAL HISTORY: Reason for exam: ams. TECHNIQUE: Axial computed tomography images of the head/brain without intravenous contrast. CTDI is 54.78 mGy and DLP is 994.59 mGy-cm. Automated exposure control was utilized for the study. A dose lowering technique was utilized adhering to the principles of ALARA. COMPARISON: CT head 03/01/2021. FINDINGS: Brain: Global parenchymal volume loss with chronic microvascular ischemic changes. No hemorrhage. Ventricles: Unremarkable. No ventriculomegaly. Bones/joints: Unremarkable. No acute fracture. Soft tissues: Unremarkable. Sinuses: Unremarkable as visualized. Mastoid air cells: Unremarkable as visualized. No mastoid effusion. IMPRESSION: 1. No intracranial hemorrhage or other acute intracranial abnormality. 2. Global parenchymal volume loss with chronic microvascular ischemic changes. Electronically signed by: Devang Chapa MD 08/20/22 21:55 PM
--- NOTE | 2022-08-20 22:00 | CT Scan Report ---
Exam(s): CT C SPINE EXAM: CT Cervical Spine Without Intravenous Contrast CLINICAL HISTORY: Reason for exam: ams. TECHNIQUE: Axial computed tomography images of the cervical spine without intravenous contrast. CTDI is 22.52 mGy and DLP is 479.2 mGy-cm. Automated exposure control was utilized for the study. A dose lowering technique was utilized adhering to the principles of ALARA. COMPARISON: None. FINDINGS: Vertebrae: No acute fracture. Discs/spinal canal/neural foramina: Mild degenerative change in cervical spine. No high-grade spinal canal stenosis. Soft tissues: Unremarkable. Vasculature: Atherosclerotic calcifications of the carotid bifurcations. IMPRESSION: No acute fracture or traumatic malalignment of the cervical spine. Electronically signed by: Devang Chapa MD 08/20/22 21:59 PM
[2022-08-20 22:14] LABS: Hematocrit (blood only) 57.3 % (37.0-47.0); Hemoglobin 17.9 g/dl (12.0-16.0); Mean Corpuscular Hemoglobin 28.4 pg (25.0-34.0); Mean Corpuscular Hgb Conc 31.2 g/dL (32.0-36.0); Mean Platelet Volume 13.4 fL (9.4-12.4); Platelet Count 356 K/uL (130-400); RDW Coefficient of Variation 15.4 % (11.5-14.5); RDW Standard Deviation 50.5 fL (36.4-46.3); White Blood Count 23.15 K/ul (4.8-10.8)
[2022-08-20] MEDS ORDERED: SODIUM CHLORIDE 0.9% 1000ML 2,000 ML IV ONE (22:19)
[2022-08-20 22:30] LABS: Basophils # (auto) 0.06 K/uL (0-0.2); Basophils % (auto) 0.3 %; Immature Granulocytes # (auto) 0.12 K/uL (0.01-0.20); Immature Granulocytes % (auto) 0.5 %; Lymphocytes # (auto) 0.85 K/uL (1.2-3.4); Lymphocytes % (auto) 3.7 %; Monocytes # (auto) 1.99 K/uL (0.11-0.59); Monocytes % (auto) 8.6 %; Neutrophils # (auto) 20.13 K/uL (1.40-6.50); Neutrophils % (auto) 86.9 %; RBC Morphology Unremarkable
[2022-08-20 22:50] LABS: Appearance Urine Clear (Clear); Bacteria Urine Automated Negative (Negative); Blood Urine Negative (Negative); Color Urine Orange; Epithelial Cell Urine Auto 20-30 /lpf (0-5); Glucose Urine UA Negative (Negative); Ketones Urine Trace (Negative); Leukocyte Esterase Urine 1+ (Negative); Nitrite Urine Positive (Negative); Protein Urine Trace (Negative); RBC Urine Automated 0-4 /hpf (0-4); Specific Gravity Urine 1.029 (1.000-1.030); Urobilinogen Urine Negative (Negative); pH Urine 5.5 (4.5-7.5)
[2022-08-20 22:53] LABS: Bilirubin Urine 1+ (Negative)
[2022-08-20 23:38] LABS: INR 1.1 (0.9-1.1); Prothrombin Time 11.5 Seconds (9.0-12.0)
--- NOTE | 2022-08-20 23:43 | History & Physical Report ---
Date of Service August 20, 2022 Assessment & Plan (1) Sepsis: Plan: 56yo female with history of progressive MS presenting with lethargy and confusion, unwitnessed fall at home. Patient afebrile. SIRS 2/4, most likely source is urinary. Sinus tachycardia with HR of 104, BP is stable. Leukocytosis with WBC=23.15, neutrophil predominant. Elevated Lactate of 4.3 --> 4. Elevated Procalcitonin=1.69. UA suggestive of infection. -Admit to PCU -Follow cultures sent by ER -Continue broad spectrum antibiotic coverage with Vancomycin and Cefepime -Continue IVF - LR at 125mL/hr x 3 liters (2) Dehydration: Plan: Patient appears clinically dry - lips dry and cracked, mucus membranes are dry as well. CBC with suspected hemoconcentration Hgb=17.9, Hct=57.3 (13.3 and 41.5, respectively on 09/06/21). Elevated Cr at 1.22 from baseline of 0.8. She has received 2L NSS thus far -Continue IVF resuscitation with LR at 125mL/hr x 3 liters -Monitor I/Os, Acosta catheter placed in ER -Repeat chemistry in AM (3) Multiple sclerosis: Plan: Patient with progressive MS, spasticity and chronic pain. She is wheelchair bound. She receives Ocrevus infusions and follows with Neurology - uncertain when last infusion. is concerned that patients symptoms today are secondary to MS flare - she often becomes confused and temporarily incoherent during an MS flare. He is uncertain if she had a seizure today. She has had seizure-like activity in the past. Possible post-ictal state could be contributing to patient's extreme lethargy -Continue Baclofen for spasticity - dosing will be reduced for renal compromise -Continue Duloxetine 60mg po BID -Continue Gabapentin -Continue Oxybutynin -Check MRI Brain -Neurology consultation appreciated -Neuro checks q 4 hours (4) Diarrhea: Plan: reports watery diarrhea on the floor and in the commode. -Check c.diff and stool PCR (5) Hypothyroidism: Plan: Chronic. Elevated TSH. -Continue Synthroid 200mcg po daily (6) HTN (hypertension): Plan: Elevated blood pressure 150/113. Patient with elevated blood pressure and high diastolic values in the past. -Continue to monitor. Patient is not on medication for blood pressure at present. F/E/N - LR at 125mL/hr x 3 liters, repeat chemistry in AM, NPO for now until MS improves Ppx - SCDs Code - Full per discussion with Dispo - Admit to PCU History of Present Illness Chief Complaint: confusion Primary Care Provider: Charli Harman DO Kadeem Del Toro is a 56yo female with history of progressive Multiple Sclerosis currently on Ocrevus infusions. She is wheelchair bound at baseline. She presents to the ER this evening with her . Patient was in her usual state of health earlier today. She was in her bedroom using her bedside commode when she called out for help. Her family found her down on the floor. She was minimally responsive and "appeared to be sleeping". noted that she defecated on the floor and had some watery diarrhea present in the bedside commode. She woke up a little but was confused and repeating herself. She was having some myoclonic jerking - is unsure if she was having a seizure. notes that patient has been requiring more assistance over the last couple of weeks. She is wheelchair bound but is typically able to feed herself and is able to transfer from her wheelchair to her bedside commode. Over the last several weeks she has been requiring more assistance with transfers. notes that she is in her wheelchair constantly and experiences considerable discomfort when she is in a bed. also notes some areas of reddened skin and breakdown present on her back side. is concerned that she is having an MS flare as she frequently becomes confused and will repeat herself when she is having a flare. also reports that she falls asleep very easily - during meals, during conversations, etc. In the ER she is afebrile, sinus tachycardia with HR of 105, hypertensive with BP of 156/125. Patient somnolent and minimally arousable. Protecting airway. ER Course: Cefepime, Vancomycin 2250mg, NSS x 2L Allergies Allergy/AdvReac Type Severity Reaction Status Date / Time Penicillins Allergy Intermediate buring Verified 08/20/22 21:25 sensation,itching Home Medications Medication Instructions Recorded Confirmed Type cholecalciferol (vitamin D3) 125 125 mcg PO DAILY 11/15/20 08/20/22 History mcg (5,000 unit) capsule Hospital Bed Home[facility] (Hospital [facility] ea 02/14/21 06/12/22 Rx Bed) aspirin 81 mg tablet,delayed 81 mg PO BID #60 tabs 09/06/21 08/20/22 Rx release naloxone 4 mg/actuation nasal 1 spray intranasal ONCE PRN opioid 09/06/21 08/20/22 Rx spray (Narcan) overdose #2 ea ocrelizumab 30 mg/mL intravenous 600 mg (20 mL) IV .COMPLEX #20 mL 12/11/21 08/20/22 Rx solution (Ocrevus) compr.stocking,knee,long,large #12 ea 02/13/22 06/12/22 Rx duloxetine 60 mg capsule,delayed 60 mg PO BID #180 caps 02/20/22 08/20/22 Rx release (Cymbalta) famotidine 40 mg tablet 40 mg PO BID #180 tabs 05/14/22 08/20/22 Rx baclofen 20 mg tablet 20 mg PO QID 90 days #360 tabs 05/20/22 08/20/22 Rx levothyroxine 100 mcg capsule 200 mcg PO QAM #180 caps 06/12/22 08/20/22 Rx gabapentin 600 mg tablet 600 mg PO TID 90 days #270 tabs 07/29/22 08/20/22 Rx oxybutynin chloride 10 mg 10 mg PO QAM 90 days #90 tabs 07/29/22 08/20/22 Rx tablet,extended release 24 hr oxycodone 10 mg tablet 10 mg PO Q4H PRN Pain 08/20/22 08/20/22 History Past Med/Surg History Medical History Bilateral lower extremity edema GERD (gastroesophageal reflux disease) History of seizure 03/2021>HOSPITALIZED AT [facility]-episodes of tremulousness with confusion, EEG negative per neurology HTN (hypertension) PT DENIES Hypothyroidism Indigestion Lymphedema Multiple sclerosis W/C BOUND>UNABLE TO AMBULATE Obesity Seizure-like activity Surgical History H/O arthroscopy of left knee History of tooth extraction Presence of intrathecal pump PAIN PUMP IN ABDOMEN>PT STATES NOT ON OR WORKING S/P ankle fusion S/P tonsillectomy Family History Father Stroke Mother Diabetes Hypothyroidism Brother Hypothyroidism Other Colorectal cancer No family history of adverse response to anesthesia Denies family history of Ovarian cancer Prostate cancer Myocardial infarction Breast cancer Social History Smoking Status: Unknown if ever smoked Tobacco Type: Cigarettes Age Started Using Tobacco: 18; Age Quit Using Tobacco: 41; packs per day: 0.5; Cigarettes Per Day: 10; Second Hand Exposure: No; Hx Alcohol Use: No Hx Substance Use: No Preferred Language: Uzbek Communication Ability: Effective Visual Impairment: No Limitations Hearing Ability: Normal 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 Required: No Beliefs That Will Affect Care: None marital status: Current Living Situation: Spouse and Family Current Living Situation Comment: spouse and two children current occupational status: retired and disabled current occupation: Stopped working in 2006 How many Children do You have: 4 Feels Safe at Home: Yes Childhood Exposure to Second-Hand Smoke: No Diet Comment: regular caffeine: Yes during the past year weight has: increased > 10 lbs Dental Care, Regularly: Yes Physical Activity Frequency: Does not Exercise Seatbelt Use: always Sunscreen Use: Yes Assistive Devices: Hospital Bed and Wheelchair Review of Systems Review of Systems: All systems reviewed & are unremarkable except as noted in HPI & below Physical Exam Physical Exam: General: patient somnolent, minimally arousable, protecting airway, nonverbal. Opens eyes to noxious stimuli Skin: warm, dry HEENT: NC/AT, PERRL, anicteric sclera, conjunctiva without injection, external ear normal to inspection and nontender, nares patent, dry mucus membranes, dentition intact, no oropharyngeal lesions, neck supple, trachea midline, no LAD, no thyromegaly, no JVD Heart: +S1/S2, regular, tachycardic, no m/r/g Lungs: equal air entry bilaterally, no rales/rhonchi/wheezes Abd: +BS, soft, NT/ND, no masses/organomegaly/ascites Ext: cool extremities, nonpitting edema of bilateral feet, 2+ pulses, Acosta with dark turbid urine in bag Neuro: somnolent, nonverbal, opens eyes to noxious stimuli Results & Data Results & Data Vital Signs (Past 12 Hours) Vital Signs Temp Pulse Pulse Resp BP BP Pulse Ox 08/20/22 23:06 133/106 H 08/20/22 23:06 90 12 98 08/20/22 23:00 149/105 H 08/20/22 23:00 90 16 149/105 H 98 08/20/22 22:31 105 H 16 156/126 H 97 08/20/22 22:04 100 H 18 146/112 H 99 08/20/22 21:56 105 H 19 136/115 H 96 08/20/22 21:35 109 H 20 149/106 H 97 08/20/22 20:33 100 H 16 150/111 H 100 08/20/22 20:34 100 08/20/22 20:49 36.9 C 101 H 14 147/123 H 96 08/20/22 21:56 107 H 15 136/115 H 97 08/20/22 20:49 99 H 20 97 08/20/22 20:37 100 H O2 Del Method O2 Flow Rate 08/20/22 23:06 08/20/22 23:06 08/20/22 23:00 08/20/22 23:00 Nasal Cannula 2 08/20/22 22:31 Nasal Cannula 2 08/20/22 22:04 Nasal Cannula 2 08/20/22 21:56 Nasal Cannula 2 08/20/22 21:35 Nasal Cannula 2 08/20/22 20:33 Nasal Cannula 2 08/20/22 20:34 Nasal Cannula 6 08/20/22 20:49 Nasal Cannula 2 08/20/22 21:56 08/20/22 20:49 Nasal Cannula 2 08/20/22 20:37 Laboratory Results Laboratory Results WBC 23.15 K/ul (4.8-10.8) H 08/20/22 20:30 RBC 6.30 M/uL (4.20-5.40) H 08/20/22 20:30 Hgb 17.9 g/dl (12.0-16.0) H 08/20/22 20:30 Hct 57.3 % (37.0-47.0) H 08/20/22 20:30 MCV 91.0 fL (80.0-100.0) 08/20/22 20:30 MCH 28.4 pg (25.0-34.0) 08/20/22 20:30 MCHC 31.2 g/dL (32.0-36.0) L 08/20/22 20:30 RDW Std Deviation 50.5 fL (36.4-46.3) H 08/20/22 20: RDW Coeff of Juanjo 15.4 % (11.5-14.5) H 08/20/22 20:30 Plt Count 356 K/uL (130-400) 08/20/22 20: MPV 13.4 fL (9.4-12.4) H 08/20/22 20:30 Immature Gran % (Auto) 0.5 % 08/20/22 20:30 Neut % (Auto) 86.9 % 08/20/22 20:30 Lymph % (Auto) 3.7 % 08/20/22 20:30 [place] % (Auto) 8.6 % 08/20/22 20:30 Eos % (Auto) 0.0 % 08/20/22 20: Baso % (Auto) 0.3 % 08/20/22 20:30 Neut # (Auto) 20.13 K/uL (1.40-6.50) H 08/20/22 20:30 Lymph # (Auto) 0.85 K/uL (1.2-3.4) L 08/20/22 20:30 [place] # (Auto) 1.99 K/uL (0.11-0.59) H 08/20/22 20:30 Eos # (Auto) 0.00 K/uL (0-0.50) 08/20/22 20:30 Baso # (Auto) 0.06 K/uL (0-0.2) 08/20/22 20:30 Immature Gran # (Auto) 0.12 K/uL (0.01-0.20) 08/20/22 20:30 RBC Morphology Unremarkable 08/20/22 20:30 PT 11.5 Seconds (9.0-12.0) 08/20/22 22:55 INR 1.1 (0.9-1.1) 08/20/22 22:55 VBG pH 7.25 (7.36-7.41) L 08/20/22 21:27 VBG pCO2 62 mmHg (38-50) H 08/20/22 21:27 VBG pO2 32 mmHg 08/20/22 21:27 VBG HCO3 27 mmol/L 08/20/22: VBG O2 Saturation < 60.0 % 08/20/22 21: VBG Base Excess -1.4 mEq/L 08/20/22: Sodium 137 mmol/L (136-145) 08/20/22 20:30 Potassium 4.8 mmol/L (3.5-5.1) 08/20/22 20: Chloride 100 mmol/L (98-107) 08/20/22 20:30 Carbon Dioxide 22 mmol/L (21-32) 08/20/22 20:30 Anion Gap 15 (3-11) H 08/20/22 20:30 BUN 23 mg/dl (6-23) 08/20/22 20:30 Creatinine 1.22 mg/dl (0.6-1.2) H 08/20/22 20:30 Est Cr Clr Drug Dosing 44.9 ml/min 08/20/22 20:30 Est GFR ( Amer) 58.2 ml/min 08/20/22 20:30 Est GFR (Non-Af Amer) 50.2 ml/min 08/20/22 20:30 BUN/Creatinine Ratio 18.9 (10-20) 08/20/22 20:30 Glucose 133 mg/dl (70-99(Fasting)) H 08/20/22 20:30 POC Glucose 135 mg/dl (70-99) H 08/20/22 20:57 Lactate 4.0 mmol/L (0.4-2.0) H* 08/20/22 23:20 Calcium 12.2 mg/dl (8.6-10.3) H* 08/20/22 20:30 Ionized Calcium 1.27 mmol/L (1.12-1.32) 08/20/22 23:20 Magnesium 2.5 mg/dl (1.7-2.4) H 08/20/22 20:30 Total Bilirubin 0.5 mg/dl (0.2-1.0) 08/20/22 20:30 Direct Bilirubin 0.0 mg/dl (0-0.2) 08/20/22 20:30 AST 27 U/L (13-39) 08/20/22 20:30 ALT 19 U/L (7-52) 08/20/22 20:30 Alkaline Phosphatase 131 U/L (34-104) H 08/20/22 20:30 Ammonia 30.0 umol/L (18-72) 08/20/22 23:20 Total Creatine Kinase 56 U/L (26-192) 08/20/22 23:20 Troponin I High Sens 61.6 pg/ml (0-14) H* D 08/20/22 23:20 Total Protein 9.6 gm/dl (6.0-8.3) H 08/20/22 20:30 Albumin 4.5 gm/dl (3.4-5.0) 08/20/22 20:30 Procalcitonin 1.69 ng/ml (0-0.5) H 08/20/22 22:19 TSH 41.717 uIu/ml (0.300-4.500) H 08/20/22 22:19 Urine Color [place] 08/20/22 22:06 Urine Appearance Clear (Clear) 08/20/22 22:06 Urine pH 5.5 (4.5-7.5) 08/20/22 22:06 Ur Specific [place] 1.029 (1.000-1.030) 08/20/22 22:06 Urine Protein Trace (Negative) H 08/20/22 22:06 Urine Glucose (UA) Negative (Negative) 08/20/22 22:06 Urine Ketones Trace (Negative) H 08/20/22 22:06 Urine Blood Negative (Negative) 08/20/22 22:06 Urine Nitrite Positive (Negative) A 08/20/22 22:06 Urine Bilirubin 1+ (Negative) H 08/20/22 22:06 Urine Urobilinogen Negative (Negative) 08/20/22 22:06 Ur Leukocyte Esterase 1+ (Negative) H 08/20/22 22:06 Urine WBC (Auto) 1-5 /hpf (0-5) 08/20/22 22:06 Urine RBC (Auto) 0-4 /hpf (0-4) 08/20/22 22:06 U Hyaline Cast (Auto) 5-10 /lpf (0-5) H 08/20/22 22:06 U Epithel Cells (Auto) 20-30 /lpf (0-5) H 08/20/22 22:06 Urine Bacteria (Auto) Negative (Negative) 08/20/22 22:06 SARS-CoV-2, RNA, NAAT NEGATIVE (NEGATIVE) 08/20/22 21:[address] 08/20/22 20:49 Exam(s): CT C SPINE EXAM: CT Cervical Spine Without Intravenous Contrast CLINICAL HISTORY: Reason for exam: ams. TECHNIQUE: Axial computed tomography images of the cervical spine without intravenous contrast. CTDI is 22.52 mGy and DLP is 479.2 mGy-cm. Automated exposure control was utilized for the study. A dose lowering technique was utilized adhering to the principles of ALARA. COMPARISON: None. FINDINGS: Vertebrae: No acute fracture. Discs/spinal canal/neural foramina: Mild degenerative change in cervical spine. No high-grade spinal canal stenosis. Soft tissues: Unremarkable. Vasculature: Atherosclerotic calcifications of the carotid bifurcations. IMPRESSION: No acute fracture or traumatic malalignment of the cervical spine. Electronically signed by: Devang Chapa MD 08/20/22 21:[address] 08/20/22 20:49 Exam(s): CT HEAD Without Contrast EXAM: CT Head Without Intravenous Contrast CLINICAL HISTORY: Reason for exam: ams. TECHNIQUE: Axial computed tomography images of the head/brain without intravenous contrast. CTDI is 54.78 mGy and DLP is 994.59 mGy-cm. Automated exposure control was utilized for the study. A dose lowering technique was utilized adhering to the principles of ALARA. COMPARISON: CT head 03/01/2021. FINDINGS: Brain: Global parenchymal volume loss with chronic microvascular ischemic changes. No hemorrhage. Ventricles: Unremarkable. No ventriculomegaly. Bones/joints: Unremarkable. No acute fracture. Soft tissues: Unremarkable. Sinuses: Unremarkable as visualized. Mastoid air cells: Unremarkable as visualized. No mastoid effusion. IMPRESSION: 1. No intracranial hemorrhage or other acute intracranial abnormality. 2. Global parenchymal volume loss with chronic microvascular ischemic changes. Electronically signed by: Devang Chapa MD 08/20/22 21:55 PM PG Care Time/CCT Total # of Minutes Spent Total Time Spent with Patient: Total time spent is greater than 50% in coordination of care (as documented) at patient's floor/unit and/or counseling patient: Coding Level of Care Code 44725 INT INP/OBS CARE 3/75MIN Diagnoses Sepsis A41.9 Dehydration E86.0 Multiple sclerosis G35 Diarrhea R19.7 Hypothyroidism E03.9 HTN (hypertension) I10
[2022-08-21 00:19] LABS: Troponin I High Sensitivity 61.6 pg/ml (0-14)
[2022-08-21] MEDS ORDERED: VANCOMYCIN HCL 2,250 MG in SODIUM CHLORIDE 0.9% 500 ML IV ONE ×2 (00:54→01:15)
[2022-08-21] MEDS ORDERED: VANCOMYCIN CONSULT ACTIVE PRN (00:54)
[2022-08-21] MEDS ORDERED: FLUARIX QUADRIVALENT 0.5 ML SYR IM ONE (01:31)
[2022-08-21] MEDS: LACTATED RINGER'S 1,000 ML IV SCH ×3 (01:40→18:03)
[2022-08-21] MEDS: CEFEPIME 2,000 MG in SYRINGE 0 ML IV SCH ×3 (07:12→22:29)
[2022-08-21] MEDS: LEVOTHYROXINE SODIUM 200 MCG TABLET PO SCH (07:12)
--- NOTE | 2022-08-21 07:51 | XRay Report ---
XR chest 1V portable CLINICAL HISTORY: Sepsis. COMPARISON STUDY: Chest radiograph September 06, 2021. FINDINGS: No pneumothorax or pleural effusion is noted. S-shaped curvature of the thoracolumbar spine is partially imaged. Cardiomegaly is unchanged. There is no evidence for pulmonary edema. There is n o consolidation to suggest pneumonia. No pneumothorax or pleural effusion is present. Intracanalicula r stimulator leads are partially imaged. IMPRESSION: No acute cardiopulmonary findings. Cardiomegaly. ACT 112: Negative or not required by law. Electronically signed by: Gato Knapp M.D. 08/21/2022 7:49 AM
[2022-08-21] MEDS: ASPIRIN 81 MG ECTAB PO SCH ×3 (08:19→19:56)
[2022-08-21] MEDS: GABAPENTIN 600 MG TAB PO SCH ×4 (08:20→19:56)
[2022-08-21] MEDS: DULoxetine HCL 60 MG CAP PO SCH ×3 (08:20→19:59)
[2022-08-21] MEDS: BACLOFEN 10 MG TAB PO SCH ×5 (08:20→19:57)
[2022-08-21] MEDS: OXYBUTYNIN CHLORIDE XL 5 MG TABCR PO SCH ×2 (08:20→09:00)
[2022-08-21] MEDS: FAMOTIDINE 40 MG TABLET PO SCH ×3 (08:20→19:56)
[2022-08-21 08:53] LABS: Base Excess VBG -0.2 mEq/L; HCO3 VBG 26 mmol/L; Oxygen Saturation VBG 69.1 %; PCO2 VBG 47 mmHg (38-50); PO2 VBG 40 mmHg; pH VBG 7.35 (7.36-7.41)
[2022-08-21] MEDS ORDERED: CEFEPIME 2,000 MG in SYRINGE 0 ML IV SCH (09:00)
[2022-08-21 09:08] LABS: Hematocrit (blood only) 42.7 % (37.0-47.0); Hemoglobin 14.1 g/dl (12.0-16.0); Mean Corpuscular Hemoglobin 28.8 pg (25.0-34.0); Mean Corpuscular Volume 87.1 fL (80.0-100.0); Mean Platelet Volume 12.7 fL (9.4-12.4); Platelet Count 320 K/uL (130-400); RDW Coefficient of Variation 15.2 % (11.5-14.5); RDW Standard Deviation 48.5 fL (36.4-46.3); White Blood Count 17.05 K/ul (4.8-10.8)
[2022-08-21 09:16] LABS: Albumin Level 3.4 gm/dl (3.4-5.0); Bilirubin Direct 0.1 mg/dl (0-0.2); Bilirubin,Total 0.4 mg/dl (0.2-1.0); Calcium 9.5 mg/dl (8.6-10.3); Est GFR (African American) 96.9 ml/min; Est GFR (Non-African American) 83.6 ml/min; Potassium 4.6 mmol/L (3.5-5.1); Total Protein 7.1 gm/dl (6.0-8.3)
[2022-08-21] MEDS ORDERED: LIOTHYRONINE SODIUM 25 MCG TAB PO SCH (11:00)
--- NOTE | 2022-08-21 11:03 | Pharmacy Report ---
Pharmacy PK ABX Note - Date of Service August 21, 2022 - Assessment and Plan Assessment 56 year old F receiving Vancomycin and Cefepime for the empiric treatment of sepsis. * PMHx significant for progressive MS on Ocrevus (unsure of last infusion) and wheelchair bound. * Upon admit: tachycardic, afebrile, WBC 23k, SCr 1.22, lactate 4.3, procalcitonin 1.69. * This AM: tachycardic but improved, remains afebrile, WBC 17k, SCr 0.80, lactate 2.7. * Blood and urine cultures pending. Plan Vancomycin * Loading dose: 2250 mg IV x 1 * Maintenance dose: 1000 mg IV every 12 hours * Regimen is predicted to achieve target AUC/NAINA of 400-600 mg/L.hr * No level will be order unless therapy extends beyond 48 hours Cefepime * 2000 mg IV every 8 hours Pharmacy will continue to follow and will adjust dose/frequency as necessary. Thank you. Pharmacy has transitioned to AUC monitoring for vancomycin. AUC/NAINA is the preferred PK/PD target and is associated with decreased risk of nephrotoxicity compared to traditional trough targets.
[2022-08-21] MEDS: ACETAMINOPHEN 325 MG TAB PO PRN ×2 (11:12→22:34)
--- NOTE | 2022-08-21 11:26 | Neurology Consultation ---
Date of Consultation August 21, 2022 Assessment & Plan (1) Multiple sclerosis: (2) Sepsis: (3) UTI (urinary tract infection): (4) Dehydration: Plan 56-year-old female with a history of multiple sclerosis presenting in 2006 with transverse myelitis. Patient has chronic paraparesis, neurogenic bladder, confined to motorized wheelchair. Has been on Ocrevus for the past few years although has not been able to receive this infusion since 2020. It looks like our office has been working on getting her Ocrevus reauthorized. Patient now presents with suspected urosepsis, episode of loss of consciousness, some concern for seizure activity. Has had similar episodes in the past although had negative EEG in March 2021. Patient's current episode likely provoked by infection, dehydration. Her clinical presentation is not suggestive of MS relapse. Again, she probably does not have relapsing remitting disease, rather, has either primary progressive or is in a secondary progressive phase at this time. Would recommend continued medical management of infection, dehydration. Would not recommend treatment with corticosteroids at this time for "MS exacerbation/relapse." Although a brain MRI has been ordered, patient is fairly certain she will not tolerate this test. Of course, an up-to-date brain MRI as well as MRI of the cervical and thoracic spine may further help to exclude a new or active lesion, I think the likelihood of this type of finding is rather low for this patient, at this stage of her disease process, in conjunction with her clinical presentation. If she is able to tolerate the brain MRI as ordered, I will make further recommendations pending review. Otherwise, however, we will continue to treat infection and dehydration as above. Our office will need to follow-up with patient regarding restarting her Ocrevus infusions. It may also be worthwhile to pursue an outpatient sleep medicine evaluation given her excessive somnolence, she apparently snores according to her spouse. May be worthwhile to exclude obstructive or central sleep apnea. Furthermore, if patient continues to have spells of transient altered awareness, associated muscular twitching, but perhaps not triggered by active medical, infectious, or metabolic issue, would consider an empiric trial of anticonvulsant therapy with levetiracetam in spite of previous unremarkable EEG. In that context, would also consider obtaining ambulatory EEG monitoring. Patient should continue with baclofen, Cymbalta, gabapentin, and Ditropan as ordered. She should have additional outpatient follow-up in our clinic, either with Dr. Sánchez or one of our ANURAG's. History of Present Illness Reason for Consultation: Change in mental status, history of MS Requesting Physician: Arti Cotto DO Attending Physician: Hussain Luna MD History of Present Illness The patient is a 56-year-old female with a history of multiple sclerosis diagnosed in 2006, presenting with transverse myelitis. She has been following with Dr. Sánchez as well as a few of our physician extenders in neurology clinic. I had last seen her in consultation during hospitalization in March 2021 for symptomatic exacerbation. Patient's MS has been characterized by transverse myelitis, bilateral lower extremity weakness and numbness, neurogenic bladder, progressive decline, ambulatory dysfunction, confined to wheelchair although able to operate hand controls. No history of optic neuritis. Has been on Ocrevus for the past few years although has not been able to receive this infusion since sometime in 2020. She has had episodes of acute altered mental status, lapse in consciousness, sometimes with associated twitching of the limbs. An EEG completed in March 2021 was normal, no epileptiform abnormalities. She has poor tolerance to MRI. MRI of the brain, cervical and thoracic spine last completed in July 2020 revealed multiple foci of chronic demyelination within the cerebral hemispheres and spinal cord consistent with multiple sclerosis, no acute or active demyelination. There are no priors available for comparison. She had presented to the emergency department yesterday for further assessment of an unresponsive episode. She was found unresponsive next to the toilet and brought in by emergency medical personnel. She had been incontinent of stool, awoke, confused, repeating herself, had some twitching of the limbs, consistent with her previous episodes. Patient has been noted to exhibit increasing decline in her overall functioning, requiring greater assistance with transfers recently. Patient has been admitted with suspected sepsis, urinary source, further confounded by dehydration, diarrhea, hypothyroidism, hypertension. Allergies Allergy/AdvReac Type Severity Reaction Status Date / Time Penicillins Allergy Intermediate buring Verified 08/20/22 21:25 sensation,itching Home Medications Medication Instructions Recorded Confirmed Type cholecalciferol (vitamin D3) 125 125 mcg PO DAILY 11/15/20 08/20/22 History mcg (5,000 unit) capsule Hospital Bed [facility] ([facility] ea 02/14/21 06/12/22 Rx Bed) aspirin 81 mg tablet,delayed 81 mg PO BID #60 tabs 09/06/21 08/20/22 Rx release naloxone 4 mg/actuation nasal 1 spray intranasal ONCE PRN opioid 09/06/21 08/20/22 Rx spray (Narcan) overdose #2 ea ocrelizumab 30 mg/mL intravenous 600 mg (20 mL) IV .COMPLEX #20 mL 12/11/21 08/20/22 Rx solution (Ocrevus) compr.stocking,knee,long,large #12 ea 02/13/22 06/12/22 Rx duloxetine 60 mg capsule,delayed 60 mg PO BID #180 caps 02/20/22 08/20/22 Rx release (Cymbalta) famotidine 40 mg tablet 40 mg PO BID #180 tabs 05/14/22 08/20/22 Rx baclofen 20 mg tablet 20 mg PO QID 90 days #360 tabs 05/20/22 08/20/22 Rx levothyroxine 100 mcg capsule 200 mcg PO QAM #180 caps 06/12/22 08/20/22 Rx gabapentin 600 mg tablet 600 mg PO TID 90 days #270 tabs 07/29/22 08/20/22 Rx oxybutynin chloride 10 mg 10 mg PO QAM 90 days #90 tabs 07/29/22 08/20/22 Rx tablet,extended release 24 hr oxycodone 10 mg tablet 10 mg PO Q4H PRN Pain 08/20/22 08/20/22 History Patient History Medical History Bilateral lower extremity edema GERD (gastroesophageal reflux disease) History of seizure 03/2021>HOSPITALIZED AT [facility]-episodes of tremulousness with confusion, EEG negative per neurology HTN (hypertension) PT DENIES Hypothyroidism Indigestion Lymphedema Multiple sclerosis W/C BOUND>UNABLE TO AMBULATE Obesity Seizure-like activity Surgical History H/O arthroscopy of left knee History of tooth extraction Presence of intrathecal pump PAIN PUMP IN ABDOMEN>PT STATES NOT ON OR WORKING S/P ankle fusion S/P tonsillectomy Family History Father Stroke Mother Diabetes Hypothyroidism Brother Hypothyroidism Other Colorectal cancer No family history of adverse response to anesthesia Denies family history of Ovarian cancer Prostate cancer Myocardial infarction Breast cancer Social History Smoking Status: Former smoker Tobacco Type: Cigarettes Age Started Using Tobacco: 18; Age Quit Using Tobacco: 41; packs per day: 0.5; Cigarettes Per Day: 10; Second Hand Exposure: No; Preferred Language: Kazakh Communication Ability: Effective Visual Impairment: No Limitations Hearing 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: Normal 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 Beliefs That Will Affect Care: None marital status: Current Living Situation: Family Current Living Situation Comment: spouse and two children current occupational status: retired and disabled current occupation: Stopped working in 2006 How many Children do You have: 4 Feels Safe at Home: Yes Childhood Exposure to Second-Hand Smoke: No Diet Comment: regular caffeine: Yes during the past year weight has: increased > 10 lbs Dental Care, Regularly: Yes Physical Activity Frequency: Does not Exercise Seatbelt Use: always Sunscreen Use: Yes Assistive Devices: Wheelchair Review of Systems Constitutional: + fatigue and + daytime sleepiness Eyes: no blind spots and no diplopia Ear, Nose, Mouth, Throat: no hearing loss Respiratory: no cough and no dyspnea Cardiovascular: no chest pain and no palpitations Gastrointestinal: no nausea and no vomiting Genitourinary: + urinary incontinence Musculoskeletal: + muscle weakness; no myalgia Integumentary: no rash and no lesions Neurologic: as per Subjective / HPI Psychiatric: no depression and no anxiety Hematologic / Lymphatic: no easy bleeding and no easy bruising Exam (Neuro) Constitutional: well developed and well nourished; no acute distress Eyes: normal visual montiel by confrontation, PERRL and EOM intact bilaterally; no fundoscopic abnormality and no papilledema Cardiovascular: Vessels: normal carotid upstroke; no carotid bruit Neurologic: Oriented to:: Person, Place and Time Memory: Short Term Intact and Remote Intact Attention: Span Intact and Concentration Intact Speech Fluency: negative Dysarthria or Dysfluency Fund of Knowledge: Current Events, Past History and Vocabulary Cranial Nerves: Normal II, III, IV, , V, VII, VIII, IX, X, XI and XII Motor Strength: Normal Upper Extremities; negative Normal Lower Extremities Spasticity: Legs Muscle Bulk/Involuntary Movements: No Involuntary Movements Sensation: negative Light Touch Intact, Pain/Temperature Intact, Vibration Intact or Proprioception Intact Coordination: Heel-Mckeon Abnormal; negative Finger-Nose Abnormal Deep Tendon Reflexes: Rt Triceps: 2+, Lt Triceps: 2+, Rt Biceps: 2+, Lt Biceps: 2+, Rt Brachioradialis: 2+, Lt Brachioradialis: 2+, Rt Patellar: 1+, Lt Patellar: 1+, Rt Ankle: 1+ and Lt Ankle: 1+ Special Tests: negative Babinski Present Details: Gait cannot be tested Results & Data Vital Signs (Past 12 Hours) Vital Signs Temp Pulse Pulse Resp BP BP BP 08/21/22 07:54 89 08/21/22 07:54 08/21/22 07:51 37.2 C 93 H 15 160/108 H 176/114 H 08/21/22 01:00 96 H 08/21/22 02:35 36.6 C 98 H 17 160/110 H 08/21/22 02:08 08/21/22 00:59 36.6 C 104 H 20 150/113 H 08/21/22 00:37 08/20/22 23:06 133/106 H 08/20/22 23:06 90 12 08/20/22 23:00 149/105 H 08/20/22 23:00 90 16 149/105 H Pulse Ox O2 Del Method O2 Flow Rate 08/21/22 07:54 08/21/22 07:54 Room Air 2 08/21/22 07:51 97 Nasal Cannula 1.5 08/21/22 01:00 08/21/22 02:35 96 Nasal Cannula 2 08/21/22 02:08 Nasal Cannula 2 08/21/22 00:59 96 Nasal Cannula 2 08/21/22 00:37 Nasal Cannula 2 08/20/22 23:06 08/20/22 23:06 98 08/20/22 23:00 08/20/22 23:00 98 Nasal Cannula 2 Laboratory Results WBC 17.05, hemoglobin 14.1, hematocrit 42.7, platelet count 320, sodium 141, potassium 4.6, BUN 20, creatinine 0.80, glucose 110, calcium 9.5, magnesium 2.5, AST 16, ALT 12, ammonia 30.0, TSH 41.717, free T40.56, free T32.26, urinalysis potentially consistent with UTI, SARS-CoV-[address] testing negative Diagnostic Findings CT of the head revealed atrophy and multiple areas of radiolucency compatible with chronic demyelination consistent with patient's history of multiple sclerosis. I did independently review these images. No hemorrhage or acute process. A cervical spine CT was negative for fracture or subluxation. MRI of the brain and cervical spine completed August 06, 2020 and thoracic spine MRI completed August 08, 2020 were independently reviewed and are as described in the HPI. Electrocardiogram reveals sinus tachycardia, possible left atrial enlargement. PG Care Time/CCT Total # of Minutes Spent Total Time Spent with Patient: Total time spent is greater than 50% in coordination of care (as documented) at patient's floor/unit and/or counseling patient: Coding Level of Care Code 97329 INT INP/OBS CARE 3/75MIN Diagnoses Multiple sclerosis G35 Sepsis A41.9 UTI (urinary tract infection) N39.0 Dehydration E86.0
[2022-08-21] MEDS: LIOTHYRONINE SODIUM 25 MCG TAB PO SCH (11:47)
[2022-08-21] MEDS: VANCOMYCIN HCL 1,000 MG in SODIUM CHLORIDE 0.9% 250 ML IV SCH (13:02)
--- NOTE | 2022-08-21 13:03 | XCELERA ---
[id number]
--- NOTE | 2022-08-21 14:09 | Electrocardiogram Report ---
Test Reason : Blood Pressure : / mmHG Vent. Rate : 102 BPM Atrial Rate : 102 BPM P-R Int : 182 ms QRS Dur : 092 ms QT Int : 326 ms P-R-T Axes : 042 006 154 degrees QTc Int : 424 ms Sinus tachycardia Possible Left atrial enlargement Abnormal ECG When compared with ECG of 05-SEP-2021 10:30, Vent. rate has increased BY 39 BPM Non-specific change in ST segment in Lateral leads T wave inversion now evident in Inferior leads T wave inversion now evident in Anterolateral leads QT has shortened Confirmed by Tadeo Begum ([id number]) on 08/21/2022 2:08:57 PM Referred By: REFERRED SELF Confirmed By:Cliff Begum
--- NOTE | 2022-08-21 14:49 | Hospitalist Progress Note ---
Date of Service August 21, 2022 Assessment & Plan (1) Sepsis: Plan: Continue vancomycin and cefepime for now, day 2. Urine cultures and blood cultures are pending. Supportive care (2) Dehydration: Plan: 3 L IV fluids ordered. Will monitor intake and output. (3) Multiple sclerosis: Plan: Supportive care. Continue usual medications. History of progressive MS, spasticity and chronic pain. She is wheelchair bound. She receives Ocrevus infusions and follows with Neurology. Check MRI Brain if mentation does not improve. Neurology consultation pending. (4) Diarrhea: Plan: reports watery diarrhea on the floor and in the commode. Check c.diff and stool PCR (5) Hypothyroidism: Plan: Free T3 and free T4 are low. TSH is elevated. Cytomel added to Synthroid. She will need serial lab testing as an outpatient. (6) HTN (hypertension): Plan: Elevated blood pressure on admission. She may need treatment initiated. We will follow Plan Hopeful discharge back to home when she improves Admission and Anticipated Discharge Date Admission Date: August 20, 2022 Subjective Somnolent at the time of my rounding. is at the bedside and he is answering questions. Troponin levels are increasing. No previous cardiac history. Cardiac echo ordered to evaluate left ventricular wall motion. Wound care evaluation requested for decubitus ulceration. Cytomel added to Synthroid for low free T4 and low free T3 with elevated TSH. Urine and blood cultures pending. She remains on vancomycin and cefepime, day 2. Review of Systems Review of Systems: The patient is sleeping and cannot respond to any questions regarding review of systems at this time Physical Exam Physical Exam: General-sleeping. No acute distress HEENT-head atraumatic and normocephalic Neck-no lymphadenopathy or thyromegaly, trachea midline Chest-clear to auscultation percussion anteriorly. No rales, wheezing or rhonchi Cardiac-regular rate and rhythm, normal S1 and S2 Abdomen-normal bowel sounds, no hepatosplenomegaly Extremities-no cyanosis, clubbing, or edema Neuro-cannot assess due to somnolent state Psych-cannot assess due to somnolent state Results & Data Results & Data Vital Signs (Past 12 Hours) Vital Signs Temp Pulse Pulse Resp BP BP Pulse Ox 08/21/22 12:00 37.3 C 100 H 19 151/106 H 94 08/21/22 07:54 89 08/21/22 07:54 08/21/22 07:51 37.2 C 93 H 15 160/108 H 176/114 H 97 O2 Del Method O2 Flow Rate 08/21/22 12:00 Room Air 08/21/22 07:54 08/21/22 07:54 Room Air 2 08/21/22 07:51 Nasal Cannula 1.5 Laboratory Results 08/21/22 08:08 08/21/22 08:08 PG Care Time/CCT Total # of Minutes Spent Total Time Spent with Patient: Total time spent is greater than 50% in coordination of care (as documented) at patient's floor/unit and/or counseling patient: Coding Level of Care Code 06796 SUB INP/OBS CARE 3/50MIN Diagnoses Sepsis A41.9 Dehydration E86.0 Multiple sclerosis G35 Diarrhea R19.7 Hypothyroidism E03.9 HTN (hypertension) I10
[2022-08-21 15:37] LABS: A calco-baum cmplx NotReported Not Detected (NotDetected); Bact fragilis Not Reported Not Detected (NotDetected); C auris Not Reported Not Detected (NotDetected); Calbicans Not Reported Not Detected (NotDetected); Candida glabrata Not Reported Not Detected (NotDetected); Candida krusei Not Reported Not Detected (NotDetected); Cneoformans/gatti Not Reported Not Detected (NotDetected); Cparapsilosis Not Reported Not Detected (NotDetected); Ctropicalis Not Reported Not Detected (NotDetected); E cloacae compx Not Reported Not Detected (NotDetected); Efaecalis Not Reported Not Detected (NotDetected); Efaecium Not Reported Not Detected (NotDetected); Enterobacterales Not Reported Not Detected (NotDetected); Escherichia coli Not Reported Not Detected (NotDetected); H influenzae Not Reported Not Detected (NotDetected); K aerogenes Not Reported Not Detected (NotDetected); Koxytoca Not Reported Not Detected (NotDetected); Kpneumoniae grp Not Reported Not Detected (NotDetected); Lmonocyt Not Reported Not Detected (NotDetected); N meningitidis Not Reported Not Detected (NotDetected); P aeruginosa Not Reported Not Detected (NotDetected); Proteus spp Not Reported Not Detected (NotDetected); Salmonella spp Not Reported Not Detected (NotDetected); Smarcescens Not Reported Not Detected (NotDetected); Staph lugdunensis Not Reported Not Detected (NotDetected); Staph spp. Not Reported DETECTED (NotDetected); Staphaureus Not Reported DETECTED (NotDetected); Staphepi Not Reported Not Detected (NotDetected); Staphylococcus spp. DETECTED (NotDetected); Stenmaltophilia Not Reported Not Detected (NotDetected); Strep agal(GrpB) Not Reported Not Detected (NotDetected); Strep pneum Not Reported Not Detected (NotDetected); Strep pyog (GrpA) Not Reported Not Detected (NotDetected); Strep spp Not Reported Not Detected (NotDetected); mecAC+MREJ Resistant Gene MRSA Not Detected (NotDetected)
[2022-08-21] MEDS ORDERED: VANCOMYCIN HCL 1,000 MG in SODIUM CHLORIDE 0.9% 250 ML IV SCH (20:00)
[2022-08-21] MEDS ORDERED: MoRPHine SULFATE 2 MG/ML CARP IV ONE (22:51)
[2022-08-22] MEDS: VANCOMYCIN HCL 1,000 MG in SODIUM CHLORIDE 0.9% 250 ML IV SCH ×2 (02:06→13:01)
[2022-08-22] MEDS ORDERED: MoRPHine SULFATE 2 MG/ML CARP IV ONE (04:59)
[2022-08-22] MEDS: CEFEPIME 2,000 MG in SYRINGE 0 ML IV SCH ×2 (06:05→13:00)
[2022-08-22] MEDS: LIOTHYRONINE SODIUM 25 MCG TAB PO SCH (06:05)
[2022-08-22] MEDS: LEVOTHYROXINE SODIUM 200 MCG TABLET PO SCH (06:05)
[2022-08-22 07:16] LABS: Basophils # (auto) 0.02 K/uL (0-0.2); Basophils % (auto) 0.2 %; Eosinophils # (auto) 0.47 K/uL (0-0.50); Eosinophils % (auto) 4.8 %; Hematocrit (blood only) 33.7 % (37.0-47.0); Hemoglobin 10.9 g/dl (12.0-16.0); Immature Granulocytes # (auto) 0.03 K/uL (0.01-0.20); Immature Granulocytes % (auto) 0.3 %; Lymphocytes # (auto) 1.96 K/uL (1.2-3.4); Lymphocytes % (auto) 19.9 %; Mean Corpuscular Hemoglobin 28.5 pg (25.0-34.0); Mean Corpuscular Hgb Conc 32.3 g/dL (32.0-36.0); Mean Corpuscular Volume 88.2 fL (80.0-100.0); Mean Platelet Volume 12.8 fL (9.4-12.4); Monocytes # (auto) 0.88 K/uL (0.11-0.59); Monocytes % (auto) 8.9 %; Neutrophils # (auto) 6.51 K/uL (1.40-6.50); Neutrophils % (auto) 65.9 %; Platelet Count 262 K/uL (130-400); RDW Coefficient of Variation 15.5 % (11.5-14.5); RDW Standard Deviation 50.1 fL (36.4-46.3); Red Blood Count 3.82 M/uL (4.20-5.40); White Blood Count 9.87 K/ul (4.8-10.8)
[2022-08-22 07:22] LABS: BUN Creatinine Ratio 16.4 (10-20); Calcium 8.4 mg/dl (8.6-10.3); Creatinine Clr Calc Pharmacy 109.1 ml/min; Est GFR (African American) 108.2 ml/min; Est GFR (Non-African American) 93.4 ml/min; Potassium 3.7 mmol/L (3.5-5.1)
[2022-08-22] MEDS: FAMOTIDINE 40 MG TABLET PO SCH ×2 (09:19→20:01)
[2022-08-22] MEDS: BACLOFEN 10 MG TAB PO SCH ×4 (09:20→20:00)
[2022-08-22] MEDS: OXYBUTYNIN CHLORIDE XL 5 MG TABCR PO SCH (09:20)
[2022-08-22] MEDS: ASPIRIN 81 MG ECTAB PO SCH ×2 (09:20→20:01)
[2022-08-22] MEDS: GABAPENTIN 600 MG TAB PO SCH ×3 (09:21→20:01)
[2022-08-22] MEDS: DULoxetine HCL 60 MG CAP PO SCH ×2 (09:21→20:01)
[2022-08-22] MEDS: METOPROLOL TARTRATE 25 MG TAB PO SCH ×2 (10:56→20:01)
--- NOTE | 2022-08-22 15:53 | Hospitalist Progress Note ---
Date of Service August 22, 2022 Assessment & Plan (1) Sepsis: Plan: Probably viral. Blood cultures growing clustered gram-positive cocci in 1 bottle. Probably staph contaminant. Antibiotics switched to Ancef. Urine culture negative . Supportive care (2) Dehydration: Plan: Resolved with IV fluids. Will monitor intake and output. (3) Multiple sclerosis: Plan: Supportive care. Continue usual medications. History of progressive MS, spasticity and chronic pain. She is wheelchair bound. She receives Ocrevus infusions and follows with Neurology. Mentation is now back to baseline. No need for brain MRI scan. Appreciate neurology consultation (4) Diarrhea: Plan: reports watery diarrhea on the floor and in the commode. Now resolved . Suspect viral etiology (5) Hypothyroidism: Plan: Free T3 and free T4 are low. TSH is elevated. Cytomel has been added to Synthroid. She will need serial lab testing as an outpatient. (6) HTN (hypertension): Plan: Elevated blood pressure on admission. Metoprolol has been added. (7) Decubitus ulcer of ankle, stage 1: Plan: Local care (8) Metabolic encephalopathy: Plan: Present on admission. Now resolved Plan Hopeful discharge to home tomorrow, August 23 Admission and Anticipated Discharge Date Admission Date: August 20, 2022 Subjective Alert and oriented. No current distress. is at the bedside. Hopefully the positive blood culture is a staph contaminant. Antibiotics switched to intravenous Ancef. Metoprolol added for heart rate and blood pressure control. She takes oxycodone regularly at home for pain control. This has been ordered. Metabolic encephalopathy present on admission has resolved. Hopefully she can go home tomorrow, August 23 Review of Systems Review of Systems: Constitutional-no fever or chills ENT-no blurred vision, no double vision, no epistaxis, no sore throat Respiratory-no cough, no wheezing, no shortness of breath Cardiac-no palpitations, no chest pain, no syncope GI-no nausea, vomiting, diarrhea, melena, hematochezia -no urinary retention, no urinary incontinence, no dysuria, no hematuria Musculoskeletal-no joint pain, no muscle tenderness Skin-no bruising, no rashes, no pruritus Neuro-chronic bilateral lower extremity weakness. Psych-no depression, no anxiety Physical Exam Physical Exam: General-alert and oriented x3, no fevers, no chills HEENT-head atraumatic and normocephalic, pupils equal and reactive to light, extraocular muscles intact Neck-no lymphadenopathy or thyromegaly, trachea midline Chest-clear to auscultation percussion. No rales wheezing or rhonchi Cardiac-regular rate and rhythm, normal S1 and S2 Abdomen-normal bowel sounds, nontender, no hepatosplenomegaly Extremities-no cyanosis, clubbing, or edema Neuro-cranial nerves II through XII intact, bilateral lower extremity weakness is chronic. Psych-normal affect, normal mood Results & Data Results & Data Vital Signs (Past 12 Hours) Vital Signs Temp Pulse Resp BP BP Pulse Ox O2 Del Method 08/22/22 12:00 36.7 C 99 H 16 129/61 97 Room Air 08/22/22 08:00 36.7 C 98 H 18 168/76 H 97 Room Air 08/22/22 04:50 36.9 C 85 18 173/103 H 95 Room Air Laboratory Results 08/22/22 06:07 08/22/22 06:07 PG Care Time/CCT Total # of Minutes Spent Total Time Spent with Patient: Total time spent is greater than 50% in coordination of care (as documented) at patient's floor/unit and/or counseling patient: Coding Level of Care Code 73701 SUB INP/OBS CARE 3/50MIN Diagnoses Sepsis A41.9 Dehydration E86.0 Multiple sclerosis G35 Diarrhea R19.7 Hypothyroidism E03.9 HTN (hypertension) I10 Decubitus ulcer of ankle, stage 1 L89.501 Metabolic encephalopathy G93.41
[2022-08-22] MEDS: oxyCODONE HCL IR 5 MG TAB (IMMEDIATE RELEASE) PO PRN ×2 (16:06→19:58)
[2022-08-22] MEDS: ceFAZolin 1000MG 1,000 MG/7.5 ML SYR IV SCH (20:00)
[2022-08-23] MEDS: oxyCODONE HCL IR 5 MG TAB (IMMEDIATE RELEASE) PO PRN ×4 (04:22→17:15)
[2022-08-23] MEDS: ceFAZolin 1000MG 1,000 MG/7.5 ML SYR IV SCH ×3 (04:23→20:14)
[2022-08-23] MEDS: LEVOTHYROXINE SODIUM 200 MCG TABLET PO SCH (05:53)
[2022-08-23] MEDS: LIOTHYRONINE SODIUM 25 MCG TAB PO SCH (05:53)
[2022-08-23 07:08] LABS: Basophils # (auto) 0.04 K/uL (0-0.2); Basophils % (auto) 0.6 %; Eosinophils # (auto) 0.48 K/uL (0-0.50); Eosinophils % (auto) 6.7 %; Hematocrit (blood only) 33.4 % (37.0-47.0); Hemoglobin 10.8 g/dl (12.0-16.0); Immature Granulocytes # (auto) 0.03 K/uL (0.01-0.20); Immature Granulocytes % (auto) 0.4 %; Lymphocytes # (auto) 1.69 K/uL (1.2-3.4); Lymphocytes % (auto) 23.7 %; Mean Corpuscular Hemoglobin 28.7 pg (25.0-34.0); Mean Corpuscular Hgb Conc 32.3 g/dL (32.0-36.0); Mean Corpuscular Volume 88.8 fL (80.0-100.0); Mean Platelet Volume 12.6 fL (9.4-12.4); Monocytes # (auto) 0.74 K/uL (0.11-0.59); Monocytes % (auto) 10.4 %; Neutrophils # (auto) 4.16 K/uL (1.40-6.50); Neutrophils % (auto) 58.2 %; Platelet Count 240 K/uL (130-400); RDW Coefficient of Variation 15.6 % (11.5-14.5); RDW Standard Deviation 50.5 fL (36.4-46.3); Red Blood Count 3.76 M/uL (4.20-5.40); White Blood Count 7.14 K/ul (4.8-10.8)
[2022-08-23 07:24] LABS: BUN Creatinine Ratio 12.3 (10-20); Calcium 8.4 mg/dl (8.6-10.3); Creatinine Clr Calc Pharmacy 97.4 ml/min; Est GFR (African American) 95.4 ml/min; Est GFR (Non-African American) 82.3 ml/min; Potassium 3.6 mmol/L (3.5-5.1)
[2022-08-23] MEDS: ASPIRIN 81 MG ECTAB PO SCH ×2 (09:10→20:08)
[2022-08-23] MEDS: DULoxetine HCL 60 MG CAP PO SCH ×2 (09:11→20:09)
[2022-08-23] MEDS: OXYBUTYNIN CHLORIDE XL 5 MG TABCR PO SCH (09:11)
[2022-08-23] MEDS: GABAPENTIN 600 MG TAB PO SCH ×3 (09:12→20:09)
[2022-08-23] MEDS: METOPROLOL TARTRATE 25 MG TAB PO SCH ×2 (09:12→20:07)
[2022-08-23] MEDS: FAMOTIDINE 40 MG TABLET PO SCH ×2 (09:12→20:09)
[2022-08-23] MEDS: BACLOFEN 10 MG TAB PO SCH ×4 (09:13→20:08)
--- NOTE | 2022-08-23 13:52 | Hospitalist Progress Note ---
Date of Service August 23, 2022 Assessment & Plan (1) Dehydration: Plan: Resolved with IV fluids. Will monitor intake and output. (2) Multiple sclerosis: Plan: Supportive care. Continue usual medications. History of progressive MS, spasticity and chronic pain. She is wheelchair bound. She receives Ocrevus infusions and follows with Neurology. Mentation is now back to baseline. No need for brain MRI scan. Appreciate neurology consultation (3) Diarrhea: Plan: reports watery diarrhea on the floor and in the commode. Now resolved . Suspect viral etiology (4) Hypothyroidism: Plan: Free T3 and free T4 are low. TSH is elevated. Cytomel has been added to Synthroid. She will need serial lab testing as an outpatient. (5) HTN (hypertension): Plan: Elevated blood pressure on admission. Metoprolol has been added. Improved (6) Decubitus ulcer of ankle, stage 1: Plan: Local care (7) Metabolic encephalopathy: Plan: Present on admission. Now resolved (8) Staphylococcus aureus bacteremia with sepsis: Plan: Infectious disease consultation requested. Transthoracic cardiac echo was unremarkable. We will repeat blood cultures until negative. Continue intraveno us Ancef therapy. Plan Await infectious disease recommendations. She may need PICC line placement for continued outpatient IV antibiotics. Repeat blood cultures ordered. Will need to repeat every 2 days until negative Admission and Anticipated Discharge Date Admission Date: August 20, 2022 Subjective The staph in the blood culture on admission is Staph aureus. This will be treated as a pathogen. It is MSSA. She is on Ancef therapy. Infectious disease consultation ordered. Repeat blood culture ordered. She has insomnia and melatonin also ordered. Blood pressure and heart rate are better with metoprolol. Cytomel has been added to the Synthroid also. This will be continued at discharge. She will need thyroid levels monitored as an outpatient. Review of Systems Review of Systems: Constitutional-no fever or chills ENT-no blurred vision, no double vision, no epistaxis, no sore throat Respiratory-no cough, no wheezing, no shortness of breath Cardiac-no palpitations, no chest pain, no syncope GI-no nausea, vomiting, diarrhea, melena, hematochezia -no urinary retention, no urinary incontinence, no dysuria, no hematuria Musculoskeletal-no joint pain, no muscle tenderness Skin-no bruising, no rashes, no pruritus Neuro-chronic bilateral lower extremity weakness. Psych-no depression, no anxiety Physical Exam Physical Exam: General-alert and oriented x3, no fevers, no chills HEENT-head atraumatic and normocephalic, pupils equal and reactive to light, extraocular muscles intact Neck-no lymphadenopathy or thyromegaly, trachea midline Chest-clear to auscultation percussion. No rales wheezing or rhonchi Cardiac-regular rate and rhythm, normal S1 and S2 Abdomen-normal bowel sounds, nontender, no hepatosplenomegaly Extremities-no cyanosis, clubbing, or edema Neuro-cranial nerves II through XII intact, bilateral lower extremity weakness is chronic. Psych-normal affect, normal mood Results & Data Results & Data Vital Signs (Past 12 Hours) Vital Signs Temp Pulse Pulse Resp BP Pulse Ox O2 Del Method 08/23/22 11:52 36.7 C 64 18 132/83 95 Room Air 08/23/22 08:29 37.1 C 90 18 135/85 92 Room Air 08/23/22 07:24 58 L 08/23/22 04:14 37.5 C 71 18 133/86 95 Room Air Laboratory Results 08/23/22 06:06 08/23/22 06:06 PG Care Time/CCT Total # of Minutes Spent Total Time Spent with Patient: Total time spent is greater than 50% in coordination of care (as documented) at patient's floor/unit and/or counseling patient: Coding Level of Care Code 53124 SUB INP/OBS CARE 3/50MIN Diagnoses Dehydration E86.0 Multiple sclerosis G35 Diarrhea R19.7 Hypothyroidism E03.9 HTN (hypertension) I10 Decubitus ulcer of ankle, stage 1 L89.501 Metabolic encephalopathy G93.41 Staphylococcus aureus bacteremia with sepsis A41.01
[2022-08-23] MEDS: MELATONIN 3 MG TAB PO SCH (20:07)
[2022-08-24] MEDS: BACLOFEN 10 MG TAB PO SCH ×4 (04:58→20:03)
[2022-08-24] MEDS: oxyCODONE HCL IR 5 MG TAB (IMMEDIATE RELEASE) PO PRN ×3 (04:59→20:08)
[2022-08-24] MEDS: ceFAZolin 1000MG 1,000 MG/7.5 ML SYR IV SCH (05:00)
[2022-08-24] MEDS: LIOTHYRONINE SODIUM 25 MCG TAB PO SCH (06:00)
[2022-08-24] MEDS: LEVOTHYROXINE SODIUM 200 MCG TABLET PO SCH (06:00)
[2022-08-24 07:22] LABS: Basophils # (auto) 0.04 K/uL (0-0.2); Basophils % (auto) 0.7 %; Eosinophils # (auto) 0.49 K/uL (0-0.50); Hemoglobin 11.1 g/dl (12.0-16.0); Immature Granulocytes # (auto) 0.03 K/uL (0.01-0.20); Immature Granulocytes % (auto) 0.5 %; Lymphocytes # (auto) 1.51 K/uL (1.2-3.4); Lymphocytes % (auto) 24.6 %; Mean Corpuscular Hemoglobin 28.5 pg (25.0-34.0); Mean Corpuscular Hgb Conc 31.7 g/dL (32.0-36.0); Mean Corpuscular Volume 89.7 fL (80.0-100.0); Mean Platelet Volume 12.6 fL (9.4-12.4); Monocytes # (auto) 0.55 K/uL (0.11-0.59); Monocytes % (auto) 8.9 %; Neutrophils # (auto) 3.53 K/uL (1.40-6.50); Neutrophils % (auto) 57.3 %; Platelet Count 261 K/uL (130-400); RDW Coefficient of Variation 15.3 % (11.5-14.5); RDW Standard Deviation 49.7 fL (36.4-46.3); White Blood Count 6.15 K/ul (4.8-10.8)
[2022-08-24] MEDS: DULoxetine HCL 60 MG CAP PO SCH ×2 (07:36→20:05)
[2022-08-24] MEDS: ASPIRIN 81 MG ECTAB PO SCH ×2 (07:36→20:02)
[2022-08-24] MEDS: FAMOTIDINE 40 MG TABLET PO SCH ×2 (07:37→20:02)
[2022-08-24] MEDS: GABAPENTIN 600 MG TAB PO SCH ×3 (07:37→20:03)
[2022-08-24] MEDS: METOPROLOL TARTRATE 25 MG TAB PO SCH ×2 (07:38→20:03)
[2022-08-24] MEDS: OXYBUTYNIN CHLORIDE XL 5 MG TABCR PO SCH (07:38)
[2022-08-24 07:39] LABS: BUN Creatinine Ratio 14.7 (10-20); Calcium 8.3 mg/dl (8.6-10.3); Est GFR (African American) 104.7 ml/min; Est GFR (Non-African American) 90.4 ml/min; Potassium 3.8 mmol/L (3.5-5.1)
--- NOTE | 2022-08-24 12:16 | Hospitalist Progress Note ---
Date of Service August 24, 2022 Assessment & Plan (1) Dehydration: Plan: Resolved with IV fluids. Will monitor intake and output. (2) Multiple sclerosis: Plan: Supportive care. Continue usual medications. History of progressive MS, spasticity and chronic pain. She is wheelchair bound. She receives Ocrevus infusions and follows with Neurology. Mentation is now back to baseline. No need for brain MRI scan. Appreciate neurology consultation (3) Diarrhea: Plan: reports watery diarrhea on the floor and in the commode. Now resolved . Suspect viral etiology (4) Hypothyroidism: Plan: Free T3 and free T4 are low. TSH is elevated. Cytomel has been added to Synthroid. She will need serial lab testing as an outpatient. (5) HTN (hypertension): Plan: Elevated blood pressure on admission. Metoprolol has been added. Improved (6) Decubitus ulcer of ankle, stage 1: Plan: Local care (7) Metabolic encephalopathy: Plan: Present on admission. Now resolved (8) Staphylococcus aureus bacteremia with sepsis: Plan: Infectious disease consultation requested. Transthoracic cardiac echo was unremarkable. I suspect there will be a request for a GERARDO procedure which has ghazal dubois explained to the patient. She probably will need a PICC line placed for continued IV antibiotics post discharge. Blood cultures were repeated on August 23 and are negative to date. Final report pending. Continue intravenous Ancef therapy. Plan Await infectious disease recommendations. She may need PICC line placement for continued outpatient IV antibiotics and a GERARDO. Await final repeat blood culture results. Will need to repeat every 2 days until negative . Anticipate eventual discharge back to home with IV antibiotic therapy Admission and Anticipated Discharge Date Admission Date: August 20, 2022 Subjective Alert and oriented. No new problems. Infectious disease consultation pending. I suspect they will recommend GERARDO evaluation of the heart valves along with PICC line placement for continued IV antibiotics post discharge. Blood pressure and heart rate have improved with addition of metoprolol. Currently on intravenous Ancef Review of Systems Review of Systems: Constitutional-no fever or chills ENT-no blurred vision, no double vision, no epistaxis, no sore throat Respiratory-no cough, no wheezing, no shortness of breath Cardiac-no palpitations, no chest pain, no syncope GI-no nausea, vomiting, diarrhea, melena, hematochezia -no urinary retention, no urinary incontinence, no dysuria, no hematuria Musculoskeletal-no joint pain, no muscle tenderness Skin-no bruising, no rashes, no pruritus Neuro-chronic bilateral lower extremity weakness. Psych-no depression, no anxiety Physical Exam Physical Exam: General-alert and oriented x3, no fevers, no chills HEENT-head atraumatic and normocephalic, pupils equal and reactive to light, extraocular muscles intact Neck-no lymphadenopathy or thyromegaly, trachea midline Chest-clear to auscultation percussion. No rales wheezing or rhonchi Cardiac-regular rate and rhythm, normal S1 and S2 Abdomen-normal bowel sounds, nontender, no hepatosplenomegaly Extremities-no cyanosis, clubbing, or edema Neuro-cranial nerves II through XII intact, bilateral lower extremity weakness is chronic. Psych-normal affect, normal mood Results & Data Results & Data Vital Signs (Past 12 Hours) Vital Signs Temp Pulse Pulse Resp BP Pulse Ox O2 Del Method 08/24/22 11:37 36.8 C 56 L 18 155/83 H 95 Room Air 08/24/22 07:28 36.8 C 65 18 157/97 H 97 Room Air 08/24/22 07:11 54 L 08/24/22 02:47 37.0 C 67 17 135/87 96 Room Air Laboratory Results 08/24/22 06:46 08/24/22 06:46 PG Care Time/CCT Total # of Minutes Spent Total Time Spent with Patient: Total time spent is greater than 50% in coordination of care (as documented) at patient's floor/unit and/or counseling patient: Coding Level of Care Code 93340 SUB INP/OBS CARE 3/50MIN Diagnoses Dehydration E86.0 Multiple sclerosis G35 Diarrhea R19.7 Hypothyroidism E03.9 HTN (hypertension) I10 Decubitus ulcer of ankle, stage 1 L89.501 Metabolic encephalopathy G93.41 Staphylococcus aureus bacteremia with sepsis A41.01
[2022-08-24] MEDS ORDERED: ceFAZolin 2000MG 2,000 MG/15 ML SYR IV SCH (13:00)
[2022-08-24] MEDS ORDERED: POLYETHYLENE (MIRALAX) 17 GM PACK PO PRN (16:32)
[2022-08-24] MEDS: MELATONIN 3 MG TAB PO SCH (20:02)
[2022-08-25] MEDS ORDERED: ceFAZolin 2000MG 2,000 MG/15 ML SYR IV SCH (01:00)
[2022-08-25] MEDS: oxyCODONE HCL IR 5 MG TAB (IMMEDIATE RELEASE) PO PRN ×4 (01:12→18:40)
[2022-08-25] MEDS ORDERED: ONDANSETRON 4 MG OD TAB PO PRN (06:11)
[2022-08-25] MEDS: LIOTHYRONINE SODIUM 25 MCG TAB PO SCH (06:18)
[2022-08-25] MEDS: LEVOTHYROXINE SODIUM 200 MCG TABLET PO SCH (06:18)
[2022-08-25 07:04] LABS: Basophils # (auto) 0.01 K/uL (0-0.2); Basophils % (auto) 0.1 %; Eosinophils # (auto) 0.16 K/uL (0-0.50); Eosinophils % (auto) 1.9 %; Hematocrit (blood only) 37.9 % (37.0-47.0); Hemoglobin 12.2 g/dl (12.0-16.0); Immature Granulocytes # (auto) 0.04 K/uL (0.01-0.20); Immature Granulocytes % (auto) 0.5 %; Lymphocytes # (auto) 0.44 K/uL (1.2-3.4); Lymphocytes % (auto) 5.3 %; Mean Corpuscular Hemoglobin 28.4 pg (25.0-34.0); Mean Corpuscular Hgb Conc 32.2 g/dL (32.0-36.0); Mean Corpuscular Volume 88.3 fL (80.0-100.0); Mean Platelet Volume 11.8 fL (9.4-12.4); Monocytes % (auto) 3.6 %; Neutrophils # (auto) 7.34 K/uL (1.40-6.50); Neutrophils % (auto) 88.6 %; Platelet Count 265 K/uL (130-400); RDW Coefficient of Variation 14.9 % (11.5-14.5); RDW Standard Deviation 47.8 fL (36.4-46.3); Red Blood Count 4.29 M/uL (4.20-5.40); White Blood Count 8.29 K/ul (4.8-10.8)
[2022-08-25 07:31] LABS: BUN Creatinine Ratio 15.6 (10-20); Calcium 8.2 mg/dl (8.6-10.3); Creatinine Clr Calc Pharmacy 103.3 ml/min; Est GFR (African American) 101.5 ml/min; Est GFR (Non-African American) 87.5 ml/min; Potassium 3.4 mmol/L (3.5-5.1)
[2022-08-25] MEDS: ASPIRIN 81 MG ECTAB PO SCH ×2 (09:56→20:27)
[2022-08-25] MEDS: GABAPENTIN 600 MG TAB PO SCH ×3 (09:57→20:26)
[2022-08-25] MEDS: OXYBUTYNIN CHLORIDE XL 5 MG TABCR PO SCH (09:57)
[2022-08-25] MEDS: METOPROLOL TARTRATE 25 MG TAB PO SCH ×2 (09:58→20:26)
[2022-08-25] MEDS: BACLOFEN 10 MG TAB PO SCH ×4 (09:59→20:30)
[2022-08-25] MEDS: FAMOTIDINE 40 MG TABLET PO SCH ×2 (09:59→20:26)
[2022-08-25] MEDS: ACETAMINOPHEN 325 MG TAB PO PRN (10:01)
[2022-08-25] MEDS: DULoxetine HCL 60 MG CAP PO SCH ×2 (10:20→19:46)
--- NOTE | 2022-08-25 10:30 | Infectious Disease Consult ---
Date of Consultation August 25, 2022 Assessment & Plan (1) Staphylococcus aureus bacteremia with sepsis: #MSSA bacteremia -present in only 1 set from admission without evident source, and rapid clearance on repeat Bcxs -pt presented with significant leukocytosis, which rapidly resolved -in setting of MS, previously on ocrevus, although last received 2020 per neurology -08/21 TTE was technically difficult did not visualize valves well. -Patient was placed on cefepime and vancomycin empirically while urine and blood cultures were pending. -08/20 blood cultures with MSSA in 1 of 2 sets. Other set is no growth to date. 08/21 urine cultures no growth. 08/23 blood cultures are no growth to date. -Patient is on cefazolin 2 g IV every 12. #YONIS- rapid resolution #Patient with reported allergy to penicillin (itching) tolerating cephalosporins Plan Rec: Repeat Bcxs are NGTD after 48 hours- with rapid clearance, IE unlikely no need at this time to perform GERARDO Will change cefazolin dose to 2 g IV q8 given improved renal function Would plan on continuing cefazolin until 4 weeks from negative Bcxs ( end date 09/20/22) with weekly CBC with diff, CMP. Ok to place picc/midline once repeat Bcxs negative >48 hours Discussed with pt who expressed understanding Will sign off, so please call if further ID questions. Lorraine Vazquez M.D. [facility] Pager [phone] Consultation Information Consultation was provided via telemedicine using two-way real-time interactive telecommunication between the patient and the telemedicine provider. For the duration of the visit, the provider was performing the assessment from a different facility than the patient. This includesuse of bluetooth stethoscope forauscultationperformed by the telepresenter that the telemedicine provider can hear if described in the physical exam. Credit Product Analyst contact information: Please call [facility] Call Center [phone]. (Phone Number For Physician Use Only) After establishing a telemedicine visit, patient was: Patient was verified with two unique identifiers, Patient/authorized rep acknowledged consent and understanding and Gave permission to continue telehealth session Time Spent with Patient: Initial => 40 min History of Present Illness Attending Physician: Sonia Mckeon MD History of Present Illness ID consult requested for staph bacteremia in this 56-year-old female, past medical history of hypothyroidism, seizure-like activity, idiopathic polyneuropathy, progressive multiple sclerosis, previously on Ocrevus, last received 2020 per neurology, neurogenic bladder, wheelchair-bound, who presented to the ED on 08/20/2022 after she was found somnolent and minimally responsive next to the toilet. reported watery diarrhea and that patient has been incontinent of stool. She was noted to have some myoclonic jerking movements by her spouse. She was brought in by EMS. It was reported that patient has similar episodes during MS flares becomes confused and very sleepy. There were no noted fevers. In the ED, temperature was 36.9, heart rate 101, blood pressure 147/123, respiratory rate 14, O2 saturation 96% on 2 L nasal cannula. Admission labs significant for WBC 23.15, 86.9% neutrophils, creatinine 1.22, procalcitonin 1.69, TSH 41.7 CK 56, negative COVID RNA, lactate 4.3, UA negative for pyuria. CT cervical spine showed no acute fracture. CT head without contrast showed no acute abnormality. 08/21 TTE was technically difficult did not visualize valves well. Patient was placed on cefepime and vancomycin empirically while urine and blood cultures were pending. 08/20 blood cultures with MSSA in 1 of 2 sets. Other set is no growth to date. 08/21 urine cultures no growth. 08/23 blood cultures are no growth to date. Patient is on cefazolin 2 g IV every 12. Patient with reported allergy to penicillin (itching) Patient was seen by neurology who did not think patient would tolerate MRI and recommended treatment of infection. Patient has been afebrile. WBC normalized rapidly (within 48 hours). Creatinine also rapidly improved to baseline next day. Pt is alert and answering questions appropriately. She reports decub posterior R thigh has scabbed over. She denies any skin infection or wounds. No recent medical procedures. Denies abd pain or diarrhea- reports no BMs since admission. She has pain pump and stimulator which is not functioning. She denies any other hardware/foreign material. She denies fever/chills. She reports back is bothering her this AM due to hospital bed. Allergies Allergy/AdvReac Type Severity Reaction Status Date / Time Penicillins Allergy Intermediate buring Verified 08/20/22 21:25 sensation,itching Home Medications Medication Instructions Recorded Confirmed Type cholecalciferol (vitamin D3) 125 125 mcg PO DAILY 11/15/20 08/20/22 History mcg (5,000 unit) capsule Hospital Bed Homecare (Hospital [facility]1 ea 02/14/21 06/12/22 Rx Bed) aspirin 81 mg tablet,delayed 81 mg PO BID #60 tabs 09/06/21 08/20/22 Rx release naloxone 4 mg/actuation nasal 1 spray intranasal ONCE PRN opioid 09/06/21 08/20/22 Rx spray (Narcan) overdose #2 ea ocrelizumab 30 mg/mL intravenous 600 mg (20 mL) IV .COMPLEX #20 mL 12/11/21 08/20/22 Rx solution (Ocrevus) compr.stocking,knee,long,large #12 ea 02/13/22 06/12/22 Rx duloxetine 60 mg capsule,delayed 60 mg PO BID #180 caps 02/20/22 08/20/22 Rx release (Cymbalta) famotidine 40 mg tablet 40 mg PO BID #180 tabs 05/14/22 08/20/22 Rx baclofen 20 mg tablet 20 mg PO QID 90 days #360 tabs 05/20/22 08/20/22 Rx levothyroxine 100 mcg capsule 200 mcg PO QAM #180 caps 06/12/22 08/20/22 Rx gabapentin 600 mg tablet 600 mg PO TID 90 days #270 tabs 07/29/22 08/20/22 Rx oxybutynin chloride 10 mg 10 mg PO QAM 90 days #90 tabs 07/29/22 08/20/22 Rx tablet,extended release 24 hr oxycodone 10 mg tablet 10 mg PO Q4H PRN Pain 08/20/22 08/20/22 History Patient History Medical History Bilateral lower extremity edema GERD (gastroesophageal reflux disease) History of seizure 03/2021>HOSPITALIZED AT [facility]-episodes of tremulousness with confusion, EEG negative per neurology HTN (hypertension) PT DENIES Hypothyroidism Indigestion Lymphedema Multiple sclerosis W/C BOUND>UNABLE TO AMBULATE Obesity Seizure-like activity Surgical History H/O arthroscopy of left knee History of tooth extraction Presence of intrathecal pump PAIN PUMP IN ABDOMEN>PT STATES NOT ON OR WORKING S/P ankle fusion S/P tonsillectomy Family History Father Stroke Mother Diabetes Hypothyroidism Brother Hypothyroidism Other Colorectal cancer No family history of adverse response to anesthesia Denies family history of Ovarian cancer Prostate cancer Myocardial infarction Breast cancer Social History Smoking Status: Former smoker Tobacco Type: Cigarettes Age Started Using Tobacco: 18; Age Quit Using Tobacco: 41; packs per day: 0.5; Cigarettes Per Day: 10; Second Hand Exposure: No; Preferred Language: Sinhala Communication Ability: Effective Visual Impairment: No Limitations Hearing Ability: Normal Financial Aid Counselor Required: No Beliefs That Will Affect Care: None marital status: Current Living Situation: Family Current Living Situation Comment: spouse and two children current occupational status: retired and disabled current occupation: Stopped working in 2006 How many Children do You have: 4 Feels Safe at Home: Yes Childhood Exposure to Second-Hand Smoke: No Diet Comment: regular caffeine: Yes during the past year weight has: increased > 10 lbs Dental Care, Regularly: Yes Physical Activity Frequency: Does not Exercise Seatbelt Use: always Sunscreen Use: Yes Assistive Devices: Hospital Bed, Scooter/Electric Scooter and Walker Physical Exam Physical Exam: PE: Gen: Awake, alert, NAD HEENT: anicteric Resp: no resp distress on RA Abd: Soft, NT/ND. Pain pump R lower abdomen without erythema Extr: no c/c/e Venous stasis changes LE b/l. Skin: IV R posterior thigh with very small healed ulcer. Back stimulator without erythema : fuentes with clear urine (pt reports does not use catheter at home) Results & Data Vital Signs (Past 12 Hours) Vital Signs Temp Pulse Pulse Pulse Resp BP Pulse Ox 08/25/22 07:55 36.9 C 89 18 167/103 H 93 08/25/22 03:00 36.6 C 71 16 127/82 94 08/24/22 23:00 52 L 08/24/22 22:57 36.7 C 63 16 122/77 91 O2 Del Method 08/25/22 07:55 Room Air 08/25/22 03:00 Room Air 08/24/22 23:00 08/24/22 22:57 Room Air Laboratory Results 08/23/22 08:48 Aerobic Blood Culture - Preliminary Blood No growth in Aerobic bottle after 48 hours. Anaerobic Blood Culture - Preliminary No growth in Anaerobic bottle after 48 hours. 08/23/22 08:48 Aerobic Blood Culture - Preliminary Blood No growth in Aerobic bottle after 48 hours. Anaerobic Blood Culture - Preliminary No growth in Anaerobic bottle after 48 hours. 08/25/22 08/25/22 06:35 06:35 WBC 8.29 RBC 4.29 Hgb 12.2 Hct 37.9 MCV 88.3 MCH 28.4 MCHC 32.2 RDW Std Deviation 47.8 H RDW Coeff of Juanjo 14.9 H Plt Count 265 MPV 11.8 Immature Gran % (Auto) 0.5 Neut % (Auto) 88.6 Lymph % (Auto) 5.3 Hall % (Auto) 3.6 Eos % (Auto) 1.9 Baso % (Auto) 0.1 Neut # (Auto) 7.34 H Lymph # (Auto) 0.44 L Hall # (Auto) 0.30 Eos # (Auto) 0.16 Baso # (Auto) 0.01 Immature Gran # (Auto) 0.04 Sodium 139 Potassium 3.4 L Chloride 107 Carbon Dioxide 26 Anion Gap 6 BUN 12 Creatinine 0.77 Est Cr Clr Drug Dosing 103.3 Est GFR ( Amer) 101.5 Est GFR (Non-Af Amer) 87.5 BUN/Creatinine Ratio 15.6 Glucose 103 H Calcium 8.2 L Medications Administered Current Medications Acetaminophen (Acetaminophen 325 Mg Tab) 650 mg PO Q4H PRN PRN Reason: Fever or headache Stop: 09/20/22 10:57 Last Admin: 08/25/22 10:01 Dose: 650 mg Aspirin (Aspirin 81 Mg Ectab) 81 mg PO BID [facility] Stop: 09/20/22 08:59 Last Admin: 08/25/22 09:56 Dose: 81 mg Baclofen (Baclofen 10 Mg Tab) 15 mg PO QID [facility] Stop: 09/20/22 08:59 Last Admin: 08/25/22 09:59 Dose: 15 mg Duloxetine HCl (Duloxetine Hcl 60 Mg Cap) 60 mg PO BID [facility] Stop: 09/20/22 08:59 Last Admin: 08/25/22 10:20 Dose: Not Given Famotidine (Famotidine 40 Mg Tablet) 40 mg PO BID [facility] Stop: 09/20/22 08:59 Last Admin: 08/25/22 09:59 Dose: 40 mg Gabapentin (Gabapentin 600 Mg Tab) 600 mg PO TID [facility] Stop: 09/20/22 08:59 Last Admin: 08/25/22 09:57 Dose: 600 mg Cefazolin Sodium (Ancef 2000mg) 2,000 mg in 15 mls @ 3.75 mls/min IV Q12H [facility]; Protocol Stop: 09/08/22 00:59 Last Admin: 08/25/22 01:07 Dose: 3.75 mls/min Levothyroxine Sodium (Levothyroxine Sodium 200 Mcg Tablet) [facility]: 09/20/22 06:29 Last Admin: 08/25/22 06:18 Dose: 200 mcg Liothyronine Sodium (Liothyronine Sodium 25 Mcg Tab) 25 mcg PO DAILYBB [facility] Stop: 09/20/22 11:29 Last Admin: 08/25/22 06:18 Dose: 25 mcg Melatonin (Melatonin 3 Mg Tab) 3 mg PO HS [facility] Stop: 09/22/22 20:59 Last Admin: 08/24/22 20:02 Dose: 3 mg Metoprolol Tartrate (Metoprolol Tartrate 25 Mg Tab) 25 mg PO BID [facility] Stop: 09/21/22 09:29 Last Admin: 08/25/22 09:58 Dose: 25 mg Ondansetron HCl (Ondansetron 4 Mg Od Tab) 4 mg PO Q4H PRN PRN Reason: Nausea And Vomiting Stop: 09/24/22 06:10 Last Admin: 08/25/22 06:18 Dose: 4 mg Oxybutynin Chloride (Oxybutynin Chloride Xl 5 Mg Tabcr) 10 mg PO QAM [facility] Stop: 09/20/22 08:59 Last Admin: 08/25/22 09:57 Dose: 10 mg Oxycodone HCl (Oxycodone Hcl Ir 5 Mg Tab (Immediate Release)) 5 mg PO Q4H PRN PRN Reason: Pain Stop: 09/05/22 15:04 Last Admin: 08/25/22 10:01 Dose: 5 mg Polyethylene Glycol (Polyethylene (Miralax) 17 Gm Pack) 17 gm PO DAILY PRN PRN Reason: Constipation Stop: 09/23/22 16:31
[2022-08-25] MEDS: ceFAZolin 2000MG 2,000 MG/15 ML SYR IV SCH ×2 (12:08→19:45)
--- NOTE | 2022-08-25 14:12 | Hospitalist Progress Note ---
Date of Service August 25, 2022 Assessment & Plan (1) Staphylococcus aureus bacteremia with sepsis: Plan: MSSA bacteremia noted. 1 set from admission 08/20 without evidence source and rapid clearance on repeat blood cultures. Blood cultures from 08/23 no growth till date TTE unremarkable Currently on Ancef IV Infectious disease consulted Per ID, infective endocarditis unlikely and they do not believe a GERARDO is needed They changed IV cefazolin to every 8 hours given improved renal function Plan for continuing cefazolin until 4 weeks from negative blood cultures (end date 09/20) with weekly CBC with differential and CMP Per IV team nurse, and ultrasound-guided midline would be appropriate once blood culture negative for 48 hours, rather than a PICC line (2) Dehydration: Plan: Resolved with IV fluids. Will monitor intake and output. (3) Multiple sclerosis: Plan: Supportive care. Continue usual medications. History of progressive MS, spasticity and chronic pain. She is wheelchair bound. She receives Ocrevus infusions and follows with Neurology. Mentation is now back to baseline. No need for brain MRI scan. Appreciate neurology consultation (4) Diarrhea: Plan: reports watery diarrhea on the floor and in the commode. Now resolved . Suspect viral etiology (5) Hypothyroidism: Plan: Free T3 and free T4 are low. TSH is elevated. Cytomel has been added to Synthr oid. She will need serial lab testing as an outpatient. (6) HTN (hypertension): Plan: Elevated blood pressure on admission. Metoprolol has been added. Improved (7) Decubitus ulcer of ankle, stage 1: Plan: Local care (8) Metabolic encephalopathy: Plan: Present on admission. Now resolved Plan Anticipate eventual discharge back to home with IV antibiotic therapy in the next 1 to 2 days. Consult PT/OT to assist with disposition. Admission and Anticipated Discharge Date Admission Date: August 20, 2022 Subjective Patient says that she feels better overall. Per nurse, patient spiked a temperature of 38. She was given a dose of Tylenol. Review of Systems Review of Systems: All systems reviewed & are unremarkable except as noted in Subjective Physical Exam Physical Exam: General: Awake, conversant Heart: S1, S2/regular rate and rhythm, no murmur rubs or gallops Lungs: Clear to auscultation bilaterally. Normal effort Abdomen: Soft/nontender/nondistended. No hepatosplenomegaly Extremities: No clubbing/cyanosis. No edema Behavior: Appropriate, cooperative Results & Data Results & Data Vital Signs (Past 12 Hours) Vital Signs Temp Pulse Pulse Resp BP Pulse Ox O2 Del Method 08/25/22 11:49 36.8 C 67 18 122/81 93 Room Air 08/25/22 07:55 36.9 C 89 18 167/103 H 93 Room Air 08/25/22 03:00 36.6 C 71 16 127/82 94 Room Air PG Care Time/CCT Total # of Minutes Spent Total Time Spent with Patient: Total time spent is greater than 50% in coordination of care (as documented) at patient's floor/unit and/or counseling patient: Coding Level of Care Code 65780 SUB INP/OBS CARE 2/35MIN Diagnoses Staphylococcus aureus bacteremia with sepsis A41.01 Dehydration E86.0 Multiple sclerosis G35 Diarrhea R19.7 Hypothyroidism E03.9 HTN (hypertension) I10 Decubitus ulcer of ankle, stage 1 L89.501 Metabolic encephalopathy G93.41
[2022-08-25] MEDS: MELATONIN 3 MG TAB PO SCH (20:26)
[2022-08-26] MEDS: ceFAZolin 2000MG 2,000 MG/15 ML SYR IV SCH ×3 (03:28→20:15)
[2022-08-26] MEDS: LEVOTHYROXINE SODIUM 200 MCG TABLET PO SCH (06:23)
[2022-08-26] MEDS: oxyCODONE HCL IR 5 MG TAB (IMMEDIATE RELEASE) PO PRN ×3 (06:23→20:05)
[2022-08-26] MEDS: LIOTHYRONINE SODIUM 25 MCG TAB PO SCH (06:23)
[2022-08-26 06:48] LABS: Hematocrit (blood only) 35.4 % (37.0-47.0); Hemoglobin 11.5 g/dl (12.0-16.0); Mean Corpuscular Hemoglobin 28.3 pg (25.0-34.0); Mean Corpuscular Hgb Conc 32.5 g/dL (32.0-36.0); Mean Corpuscular Volume 87.2 fL (80.0-100.0); Mean Platelet Volume 11.9 fL (9.4-12.4); Platelet Count 264 K/uL (130-400); RDW Coefficient of Variation 15.3 % (11.5-14.5); RDW Standard Deviation 48.3 fL (36.4-46.3); Red Blood Count 4.06 M/uL (4.20-5.40); White Blood Count 4.24 K/ul (4.8-10.8)
[2022-08-26 07:13] LABS: BUN Creatinine Ratio 13.7 (10-20); Creatinine Clr Calc Pharmacy 108.2 ml/min; Est GFR (African American) 108.2 ml/min; Est GFR (Non-African American) 93.4 ml/min; Potassium 3.7 mmol/L (3.5-5.1)
[2022-08-26 07:21] LABS: Basophils # (auto) 0.03 K/uL (0-0.2); Basophils % (auto) 0.7 %; Eosinophils # (auto) 0.29 K/uL (0-0.50); Eosinophils % (auto) 6.8 %; Immature Granulocytes # (auto) 0.03 K/uL (0.01-0.20); Immature Granulocytes % (auto) 0.7 %; Lymphocytes # (auto) 0.96 K/uL (1.2-3.4); Lymphocytes % (auto) 22.6 %; Monocytes # (auto) 0.55 K/uL (0.11-0.59); Neutrophils # (auto) 2.38 K/uL (1.40-6.50); Neutrophils % (auto) 56.2 %
[2022-08-26] MEDS: DULoxetine HCL 60 MG CAP PO SCH ×3 (08:36→19:50)
[2022-08-26] MEDS: BACLOFEN 10 MG TAB PO SCH ×4 (08:37→20:08)
[2022-08-26] MEDS: OXYBUTYNIN CHLORIDE XL 5 MG TABCR PO SCH (08:37)
[2022-08-26] MEDS: METOPROLOL TARTRATE 25 MG TAB PO SCH ×2 (08:38→20:14)
[2022-08-26] MEDS: ASPIRIN 81 MG ECTAB PO SCH ×2 (08:38→20:08)
[2022-08-26] MEDS: GABAPENTIN 600 MG TAB PO SCH ×3 (08:39→20:06)
[2022-08-26] MEDS: FAMOTIDINE 40 MG TABLET PO SCH ×2 (08:39→20:09)
--- NOTE | 2022-08-26 12:21 | Hospitalist Progress Note ---
Date of Service August 26, 2022 Assessment & Plan (1) Staphylococcus aureus bacteremia with sepsis: Plan: MSSA bacteremia. 1 bottle from admission 08/20 positive for such. Blood cx's 08/23 negative. source of MSSA uncertain. the baclofen pump could serve as a reservoir but you would expect more cultures to be positive and a longer duration of treatment before clearance from the blood. her bacteremia cleared quite rapidly. 2d echo neg for SBE. Currently on Ancef IV 2gm TID. ID consult appreciated. Last day of Rx - 09/20/22. Consent for midline obtained. I spoke with [facility] ID today re: baclofen pump and whether the device should be explanted. Low suspicion that the pump is infected, but given that it is no longer being used, we should plan to remove it in the near-future any way. I spoke with ortho-spine and we will set her up with them shortly after d/c to determine a date for explantation. (2) Dehydration: Plan: Resolved (3) Multiple sclerosis: Plan: Continue usual medications. History of progressive MS, spasticity, paraplegic status, and chronic pain. She is wheelchair dependent. She receives Ocrevus infusions and follows with Neurology. Appreciate neurology consultation earlier in stay - MS flare not suspected. (4) Diarrhea: Plan: reports watery diarrhea on the floor and in the commode just prior to admission. Now resolved. Viral process? (5) Hypothyroidism: Plan: Free T3 and free T4 are low. TSH elevated at 41. Cytomel has been added to Synthroid. Repeat TSH in 6 weeks. Was patient compliant with synthroid recently? e (6) HTN (hypertension): Plan: Controlled with metoprolol. (7) Metabolic encephalopathy: Plan: Present on admission. Now resolved MS at baseline (8) Nocturnal hypoxemia: Plan: Patient has been requiring nocturnal O2 while here. Sleep disordered breathing? Will perform overnight oximetry study. 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 (11) Morbid obesity with BMI of 40.0-44.9, adult: Plan: BMI 42 Plan updated at bedside today dispo - pt now agreeable to rehab as she is unable to transfer per her usual baseline [facility] can likely accept patient Admission and Anticipated Discharge Date Admission Date: August 20, 2022 Subjective patient w/o significant complaints feels "much better" in comparison to admission eating is better mental status has improved anxious to d/c home she mentions that about 1 week prior to admission she had a slight skin abrasion on the posterior right thigh it resolved rather quickly with minimal treatment no other skin ulcers at any time her baclofen pump device was implanted in [place] in the mid it is no longer functional she does want it out at some point she also has a nerve stimulator device - also not functioning tele overnight wnl Review of Systems Review of Systems: gen- no fever cv- no chest pain pulm- no dyspnea GI- had had copious stools at home just prior to admission; this has resolved Physical Exam Physical Exam: gen - NAD, pleasant mouth - MMM neck - no JVD heart - RRR, s1 s2, no murmur lungs - CTA b/l abd - soft, baclofen pump device palpable in the right lower quadrant of abdomen - no overlying erythema, tenderness, etc; BS+, NT ext - trace edema, pulses 2+ b/l neuro - paraplegia of legs; increased tone legs; clonus of ankles skin - no lesions or ulcerations any location Results & Data Results & Data Vital Signs (Past 12 Hours) Vital Signs Temp Pulse Pulse Pulse Resp BP Pulse Ox 08/26/22 11:56 36.6 C 57 L 18 112/75 98 08/26/22 08:00 65 08/26/22 07:38 36.8 C 67 18 111/74 97 08/26/22 05:00 37.2 C 68 20 114/76 94 O2 Del Method O2 Flow Rate 08/26/22 11:56 Nasal Cannula 1 08/26/22 08:00 08/26/22 07:38 Nasal Cannula 1 08/26/22 05:00 Nasal Cannula 1.5 Laboratory Results Laboratory Results - last 24 hr 08/26/22 08/26/22 06:16 06:16 WBC 4.24 L RBC 4.06 L Hgb 11.5 L Hct 35.4 L MCV 87.2 MCH 28.3 MCHC 32.5 RDW Std Deviation 48.3 H RDW Coeff of Juanjo 15.3 H Plt Count 264 MPV 11.9 Immature Gran % (Auto) 0.7 Neut % (Auto) 56.2 Lymph % (Auto) 22.6 [place] % (Auto) 13.0 Eos % (Auto) 6.8 Baso % (Auto) 0.7 Neut # (Auto) 2.38 Lymph # (Auto) 0.96 L Wirt # (Auto) 0.55 Eos # (Auto) 0.29 Baso # (Auto) 0.03 Immature Gran # (Auto) 0.03 Sodium 139 Potassium 3.7 Chloride 107 Carbon Dioxide 26 Anion Gap 6 BUN 10 Creatinine 0.73 Est Cr Clr Drug Dosing 108.2 Est GFR ( Amer) 108.2 Est GFR (Non-Af Amer) 93.4 BUN/Creatinine Ratio 13.7 Glucose 93 Calcium 8.0 L Diagnostic Findings repeat blood cx's 08/23/22 negative PG Care Time/CCT Total # of Minutes Spent Total Time Spent with Patient: Total time spent is greater than 50% in coordination of care (as documented) at patient's floor/unit and/or counseling patient: Coding Level of Care Code 97527 SUB INP/OBS CARE 3/50MIN Diagnoses Staphylococcus aureus bacteremia with sepsis A41.01 Dehydration E86.0 Multiple sclerosis G35 Diarrhea R19.7 Hypothyroidism E03.9 HTN (hypertension) I10 Metabolic encephalopathy G93.41 Nocturnal hypoxemia G47.34 Lymphedema I89.0 Paraplegia G82.20 Morbid obesity with BMI of 40.0-44.9, adult E66.01; Z68.41
[2022-08-26] MEDS: MELATONIN 3 MG TAB PO SCH (20:09)
[2022-08-27] MEDS: oxyCODONE HCL IR 5 MG TAB (IMMEDIATE RELEASE) PO PRN ×3 (03:33→20:02)
[2022-08-27] MEDS: ceFAZolin 2000MG 2,000 MG/15 ML SYR IV SCH ×3 (03:33→19:53)
[2022-08-27] MEDS: LEVOTHYROXINE SODIUM 200 MCG TABLET PO SCH (06:05)
[2022-08-27] MEDS: LIOTHYRONINE SODIUM 25 MCG TAB PO SCH (06:05)
[2022-08-27 07:29] LABS: Basophils # (auto) 0.04 K/uL (0-0.2); Basophils % (auto) 0.8 %; Eosinophils # (auto) 0.43 K/uL (0-0.50); Eosinophils % (auto) 8.2 %; Hematocrit (blood only) 34.7 % (37.0-47.0); Hemoglobin 11.2 g/dl (12.0-16.0); Immature Granulocytes # (auto) 0.01 K/uL (0.01-0.20); Immature Granulocytes % (auto) 0.2 %; Lymphocytes # (auto) 1.57 K/uL (1.2-3.4); Lymphocytes % (auto) 29.8 %; Mean Corpuscular Hemoglobin 28.3 pg (25.0-34.0); Mean Corpuscular Hgb Conc 32.3 g/dL (32.0-36.0); Mean Corpuscular Volume 87.6 fL (80.0-100.0); Monocytes # (auto) 0.78 K/uL (0.11-0.59); Monocytes % (auto) 14.8 %; Neutrophils # (auto) 2.43 K/uL (1.40-6.50); Neutrophils % (auto) 46.2 %; Platelet Count 282 K/uL (130-400); RDW Coefficient of Variation 15.3 % (11.5-14.5); RDW Standard Deviation 48.7 fL (36.4-46.3); Red Blood Count 3.96 M/uL (4.20-5.40); White Blood Count 5.26 K/ul (4.8-10.8)
[2022-08-27] MEDS: ASPIRIN 81 MG ECTAB PO SCH ×2 (08:21→19:59)
[2022-08-27] MEDS: FAMOTIDINE 40 MG TABLET PO SCH ×2 (08:21→19:59)
[2022-08-27] MEDS: OXYBUTYNIN CHLORIDE XL 5 MG TABCR PO SCH (08:22)
[2022-08-27] MEDS: BACLOFEN 10 MG TAB PO SCH ×4 (08:22→20:00)
[2022-08-27] MEDS: DULoxetine HCL 60 MG CAP PO SCH ×2 (08:22→19:51)
[2022-08-27] MEDS: GABAPENTIN 600 MG TAB PO SCH ×3 (08:22→19:59)
[2022-08-27 09:05] LABS: Calcium 8.3 mg/dl (8.6-10.3); Potassium 3.8 mmol/L (3.5-5.1)
[2022-08-27 09:10] LABS: Est GFR (African American) 114.4 ml/min; Est GFR (Non-African American) 98.7 ml/min
[2022-08-27] MEDS: METOPROLOL TARTRATE 25 MG TAB PO SCH ×2 (11:23→19:59)
[2022-08-27] MEDS: MELATONIN 3 MG TAB PO SCH (19:59)
--- NOTE | 2022-08-27 21:15 | Hospitalist Progress Note ---
Date of Service August 27, 2022 Assessment & Plan (1) Staphylococcus aureus bacteremia with sepsis: Plan: MSSA bacteremia. 1 bottle from admission 08/20 positive for such. Blood cx's 08/23 negative. source of MSSA uncertain. the baclofen pump could serve as a reservoir but you would expect more cultures to be positive and a longer duration of treatment before clearance from the blood. her bacteremia cleared quite rapidly. Echo neg for SBE. Currently on Ancef IV 2gm TID. ID consult appreciated. Prolonged course of IV ancef recommended with stop date of 09/20/22. RUE midline in place for such. To return home with home health and home IV abx. Although there is low suspicion that the pump is infected, but given that it is no longer being used, we should plan to remove it in the near-future any way. I spoke with ortho-spine and we will set her up with them shortly after d/c to determine a date for explantation. Will have her see Dr Casey Elizondo at [facility] Sp[facility]/ortho for such. (2) Dehydration: Plan: Resolved (3) Multiple sclerosis: Plan: Continue usual medications. History of progressive MS, spasticity, paraplegic status, and chronic pain. She is wheelchair dependent. She receives Ocrevus infusions and follows with Neurology. Appreciate neurology consultation earlier in stay - MS flare not suspected. (4) Diarrhea: Plan: Prior to admission. Now resolved. (5) Hypothyroidism: Plan: Free T3 and free T4 are low. TSH elevated at 41. Cytomel has been added to Synthroid. Repeat TSH in 6 weeks. Was patient compliant with synthroid recently? (6) HTN (hypertension): Plan: Controlled with metoprolol. (7) Metabolic encephalopathy: Plan: Present on admission. Now resolved (8) Nocturnal hypoxemia: Plan: Patient had been requiring nocturnal O2 while here. overnight oximetry study completed and was normal. (9) Lymphedema: Plan: 2nd to paraplegia state (10) Paraplegia: Plan: 2nd to MS acquired (11) Morbid obesity with BMI of 40.0-44.9, adult: Plan: BMI 42 (12) Presence of intrathecal pump: Plan: plan for removal as outpatient see above Plan updated at bedside today once again dispo - pt/ now wanting home with home health PT/OT both evaluated and feel she can safely return home will plan for d/c tomorrow once IV abx have been set up, etc Patient will require a Elodia Lift once she returns home. The use of the lift to transfer between bed, chair, wheelchair or commode is required and without the use of a lift, the patient would be bed confined otherwise. Admission and Anticipated Discharge Date Admission Date: August 20, 2022 Subjective patient without any new complaints she & her decided to forego [facility] post-d/c and instead return home with home health services they are agreeable to home IV abx and are comfortable with being taught midline catheter care, IV abx administration, etc overnight oximetry study was wnl telemetry overnight wnl we had a discussion re: removal of her baclofen pump she is agreeable to having outpatient consultation w/ Dr Elizondo to discuss removal Review of Systems Review of Systems: gen - feels good, appetite improved, mentation normal cv - no chest pain pulm - no dyspnea or cough GI - no abd pain; still no bowel movement; no nausea/emesis Physical Exam Physical Exam: gen - NAD, sitting in powerchair, pleasant mouth - MMM neck - no JVD heart - RRR, s1 s2, no murmur lungs - CTA b/l abd - soft, baclofen pump device palpable in the right lower quadrant of abdomen - no overlying erythema, tenderness, etc; BS+, NT ext - trace edema, pulses 2+ b/l neuro - paraplegia of legs; increased tone legs skin - no lesions or ulcerations any location of legs Results & Data Results & Data Vital Signs (Past 12 Hours) Vital Signs Temp Pulse Pulse Pulse Resp BP Pulse Ox 08/27/22 19:31 68 20 141/99 H 96 08/27/22 17:34 63 08/27/22 15:33 36.9 C 72 20 153/98 H 93 08/27/22 12:07 36.6 C 77 19 139/97 95 O2 Del Method 08/27/22 19:31 Room Air 08/27/22 17:34 08/27/22 15:33 Room Air 08/27/22 12:07 Room Air Laboratory Results Laboratory Results - last 24 hr 08/27/22 08/27/22 06:55 06:55 WBC 5.26 RBC 3.96 L Hgb 11.2 L Hct 34.7 L MCV 87.6 MCH 28.3 MCHC 32.3 RDW Std Deviation 48.7 H RDW Coeff of Juanjo 15.3 H Plt Count 282 MPV 12.0 Immature Gran % (Auto) 0.2 Neut % (Auto) 46.2 Lymph % (Auto) 29.8 [place] % (Auto) 14.8 Eos % (Auto) 8.2 Baso % (Auto) 0.8 Neut # (Auto) 2.43 Lymph # (Auto) 1.57 [place] # (Auto) 0.78 H Eos # (Auto) 0.43 Baso # (Auto) 0.04 Immature Gran # (Auto) 0.01 Sodium 140 Potassium 3.8 Chloride 107 Carbon Dioxide 25 Anion Gap 8 BUN 9 Creatinine 0.69 Est Cr Clr Drug Dosing 114.0 Est GFR ( Amer) 114.4 Est GFR (Non-Af Amer) 98.7 BUN/Creatinine Ratio 13.0 Glucose 84 Calcium 8.3 L Diagnostic Findings most recent blood cultures 08/23 negative PG Care Time/CCT Total # of Minutes Spent Total Time Spent with Patient: Total time spent is greater than 50% in coordination of care (as documented) at patient's floor/unit and/or counseling patient: Coding Level of Care Code 65679 SUB INP/OBS CARE 235MIN Diagnoses Staphylococcus aureus bacteremia with sepsis A41.01 Dehydration E86.0 Multiple sclerosis G35 Diarrhea R19.7 Hypothyroidism E03.9 HTN (hypertension) I10 Metabolic encephalopathy G93.41 Nocturnal hypoxemia G47.34 Lymphedema I89.0 Paraplegia G82.20 Morbid obesity with BMI of 40.0-44.9, adult E66.01; Z68.41 Presence of intrathecal pump Z97.8
[2022-08-28] MEDS: ceFAZolin 2000MG 2,000 MG/15 ML SYR IV SCH ×2 (03:50→11:47)
[2022-08-28] MEDS: LIOTHYRONINE SODIUM 25 MCG TAB PO SCH (06:09)
[2022-08-28] MEDS: LEVOTHYROXINE SODIUM 200 MCG TABLET PO SCH (06:09)
[2022-08-28] MEDS: BACLOFEN 10 MG TAB PO SCH ×2 (10:02→13:37)
[2022-08-28] MEDS: METOPROLOL TARTRATE 25 MG TAB PO SCH (10:02)
[2022-08-28] MEDS: OXYBUTYNIN CHLORIDE XL 5 MG TABCR PO SCH (10:03)
[2022-08-28] MEDS: FAMOTIDINE 40 MG TABLET PO SCH (10:03)
[2022-08-28] MEDS: ASPIRIN 81 MG ECTAB PO SCH (10:03)
[2022-08-28] MEDS: DULoxetine HCL 60 MG CAP PO SCH (10:04)
[2022-08-28] MEDS: GABAPENTIN 600 MG TAB PO SCH ×2 (10:04→13:38)
--- NOTE | 2022-08-28 13:14 | Discharge Summary ---
Date of Service August 28, 2022 Admission HPI Per Admitting Provider Kadeem Del Toro is a 56yo female with history of progressive Multiple Sclerosis currently on Ocrevus infusions. She is wheelchair bound at baseline. She presents to the ER this evening with her . Patient was in her usual state of health earlier today. She was in her bedroom using her bedside commode when she called out for help. Her family found her down on the floor. She was minimally responsive and "appeared to be sleeping". noted that she defecated on the floor and had some watery diarrhea present in the bedside commode. She woke up a little but was confused and repeating herself. She was having some myoclonic jerking - is unsure if she was having a seizure. notes that patient has been requiring more assistance over the last couple of weeks. She is wheelchair bound but is typically able to feed herself and is able to transfer from her wheelchair to her bedside commode. Over the last several weeks she has been requiring more assistance with transfers. notes that she is in her wheelchair constantly and experiences considerable discomfort when she is in a bed. also notes some areas of reddened skin and breakdown present on her back side. is concerned that she is having an MS flare as she frequently becomes confused and will repeat herself when she is having a flare. also reports that she falls asleep very easily - during meals, during conversations, etc. In the ER she is afebrile, sinus tachycardia with HR of 105, hypertensive with BP of 156/125. Patient somnolent and minimally arousable. Protecting airway. ER Course: Cefepime, Vancomycin 2250mg, NSS x 2L Discharge Data Allergies Allergy/AdvReac Type Severity Reaction Status Date / Time Penicillins Allergy Intermediate buring Verified 08/20/22 21:25 sensation,itching Consultations 08/21/22 00:54 Consult Neurology Routine Ordered Studies 08/20/22 20:49 CT cervical spine wo con Stat CT head/brain wo con Stat Hospital Course (1) Staphylococcus aureus bacteremia with sepsis: MSSA bacteremia. 1 bottle from admission 08/20 positive for such. Blood cx's 08/23 negative. source of MSSA uncertain. the baclofen pump could serve as a reservoir but you would expect more cultures to be positive and a longer duration of treatment before clearance from the blood. her bacteremia cleared quite rapidly. Echo neg for SBE. Currently on Ancef IV 2gm TID. ID consult appreciated. Prolonged course of IV ancef recommended with stop date of 09/20/22. RUE midline in place for such. To return home with home health and home IV abx. Although there is low suspicion that the pump is infected, but given that it is no longer being used, we should plan to remove it in the near-future any way. I spoke with ortho-spine and we will set her up with them shortly after d/c to determine a date for explantation. Will have her see Dr Casey Elizondo [place] [facility] [place] for such. (2) Dehydration: Resolved (3) Multiple sclerosis: Continue usual medications. History of progressive MS, spasticity, paraplegic status, and chronic pain. She is wheelchair dependent. She receives Ocrevus infusions and follows with Neurology. Appreciate neurology consultation earlier in stay - MS flare not suspected. (4) Diarrhea: Prior to admission. Now resolved. (5) Hypothyroidism: Free T3 and free T4 are low. TSH elevated at 41. Cytomel has been added to Synthroid. Repeat TSH in 6 weeks. Was patient compliant with synthroid recently? (6) HTN (hypertension): Controlled with metoprolol. (7) Metabolic encephalopathy: Present on admission. Now resolved (8) Nocturnal hypoxemia: Patient had been requiring nocturnal O2 while here. overnight oximetry study completed and was normal. (9) Lymphedema: 2nd to paraplegia state (10) Paraplegia: 2nd to MS acquired (11) Morbid obesity with BMI of 40.0-44.9, adult: BMI 42 (12) Presence of intrathecal pump: plan for removal as outpatient see above Plan updated at bedside today once again dispo - pt/ now wanting home with home health PT/OT both evaluated and feel she can safely return home will plan for d/c tomorrow once IV abx have been set up, etc Patient will require a Elodia Lift once she returns home. The use of the lift to transfer between bed, chair, wheelchair or commode is required and without the use of a lift, the patient would be bed confined otherwise. Home Health Attestation I certify that this patient is under my care and that I, or a physicians funeral director's assistant working with me, had a face to-face encounter that meets the home health [id number] encounter requirements with this patient. The encounter with the patient was in whole, or in part, for the following medical condition, which is the primary reason for home health care (list medical condition): IV antibiotics I certify that, based on my findings, the following services are medically necessary home health services: My clinical findings support the need for the above services because: Caregiver Instruct Med Mgmt, Safety, Disease Process, Signs to Report Home Safety Assessment Hydration / Nutrition Medication Compliance and Monitoring Effective of New Medications OT Assess ADL Status and Restore Function w ADLs PT Assessment for Endurance / Balance / Strength Skilled Nsg Instruction New Medications S/S to Report to Provider Teach on Disease Management and Interventions Vital Signs Weekly Labs Further, I certify that my clinical findings support that this patient is homebound (i.e. absences from home require considerable and taxing effort and are for medical reasons or rastafarian services or infrequently or of short duration when for other reasons) because: Supportive Aid - Wheelchair Transportation Assistance/Unable to Leave Home Unassisted Certification for Home Health Services: Based on the above findings, I certify that this patient is confined to the home and needs intermittent chcf care, physical therapy and/or speech therapy or continues to need occupational therapy. The patient is under my care, and I have initiated the establishment of the plan of care. This patient will be followed by a physician who will periodically review the plan of care. Discharge Plan Discharge Items Patient Disposition: Home - Home Health Services Reason For Visit: Sepsis, Confusion Discharge Diagnosis: 1. Staph aureus sepsis/bacteremia (staph infection in the blood) - resolved; cause uncertain 2. Confusion due to #1 - resolved 3. Intrathecal pump - removal recommended Activity: Resume your previous activity Bathing Comment: Please keep R arm midline IV covered/clean/dry during showers Non-emergency contact: Primary Care Provider and Surgeon Call non-emergency contact if: you have any medication questions, your symptoms worsen and you have a fever Follow-up/Referrals: Charli Harman DO [Primary Care Provider] - 09/01/22 9:20 am Gregorio Elizondo DO [Surgeon] - 09/25/22 9:00 am (With the PA-C) Diet: Regular Addtl Attending Provider Instructions: Mrs Del Toro, You presented to [facility] with confusion, weakness, diarrhea, and feeling very poorly. It was ultimately discovered that you had bloodstream infection, also known as "bacteremia." The culprit bacterium was staph aureus. Staph bacteria live on our skin and thus it entered the bloodstream likely from an opening/cut/ulcer somewhere on the body. Staph can infect the heart and thus you had an echocardiogram to check for this. The echocardiogram was normal (we did not see infection on the heart valves). Repeat blood cultures were negative; thus, the infection in the blood has resolved. Infectious diseases saw you in consult and recommended IV antibiotics until September 20, 2022. Staph infection can infect hardware such as an intrathecal pain pump. Since your pump is no longer functioning we are recommending that it be removed. Finally, your thyroid level ("TSH") was abnormal suggesting you need more thyroid medication. Your TSH level was 41. Recommendations - 1. cefazolin antibiotic - 2 grams every 8 hours via right arm IV until September 20, 2022. 2. you will need weekly blood work while on the antibiotics. These can be drawn via home health at your home. 3. please increase your levothyroxine to 250mcg once daily each morning. New prescription for 125mcg capsules was sent to [facility]. Take 2 (total of 250mcg) capsules each morning. 4. please have your "TSH" level rechecked by your family doctor in 6 weeks. Follow-up - see separate section Return to [facility] if - * you develop recurrent fevers over 100 degrees * you have any concerns about your right arm IV (redness, swelling, worsening pain, etc) * you have severe diarrhea * any other concerns It was our pleasure to care for you at [facility]! Dr Blount Pending Studies at Discharge: No Stand-Alone Forms: My [facility], Smoking Cessation Medications and DC Order Prescriptions: New cefazolin 1 gram recon soln 2 g IV Q8H Qty: 25 2RF Rx Instructions: stop date of 09/20/22. Continued (DME) Hospital Bed Misc See Rx Instructions .Route Qty: 1 0RF Rx Instructions: As directed duloxetine [Cymbalta] 60 mg capsule,delayed release(DR/EC) 60 mg PO BID Qty: 180 1RF famotidine 40 mg tablet 40 mg PO BID Qty: 180 3RF baclofen 20 mg tablet 20 mg PO QID 90 Days Qty: 360 1RF gabapentin 600 mg tablet 600 mg PO TID 90 Days Qty: 270 6RF oxybutynin chloride 10 mg tablet extended release 24hr 10 mg PO QAM 90 Days Qty: 90 4RF (DME) compr.stocking,knee,long,large Misc See Rx Instructions .Route Qty: 12 0RF Rx Instructions: As directed cholecalciferol (vitamin D3) 125 mcg (5,000 unit) capsule 125 mcg PO DAILY Ocrevus 30 mg/mL solution 600 mg IV .COMPLEX Qty: 20 1RF Rx Instructions: 600mg IV every 6 months. 30 mins before each infusion, premedicate w/ methylprednisolone 100mg iv,Diphenhydramine 25mg iv,and Actaminophen 500mg PO. ; May give an additional 25mg diphenhydramine IV during infusion PRN; oxycodone 10 mg tablet 10 mg PO Q4H PRN (Reason: Pain) aspirin 81 mg tablet,delayed release (DR/EC) 81 mg PO BID Qty: 60 0RF naloxone [Narcan] 4 mg/actuation spray,non-aerosol 1 spray intranasal ONCE PRN (Reason: opioid overdose) Qty: 2 0RF Changed levothyroxine 125 mcg capsule 250 mcg PO DAILY Qty: 60 5RF Discharge Orders: Discharge Order (Routine); Ordered 08/28/22 Ordered By: Lauro Rose/Other Patient Handouts: Understanding a Midline Catheter, Midline Catheter Dc, ED Bacteremia, Suspected (Adult) Admission Data Admit Date/Time: 08/20/22 23:43 Attending Provider: Lauro Blount Admit Provider: Arti Cotto Primary Care Provider: Charli Harman Other Providers: Thony Gilmore ; [facility] ; [facility] ; [facility] Other Interventions: Discharge Summary Assessment (RN) Last Done: 08/28/22 13:10 Coding Diagnoses Staphylococcus aureus bacteremia with sepsis A41.01 Dehydration E86.0 Multiple sclerosis G35 Diarrhea R19.7 Hypothyroidism E03.9 HTN (hypertension) I10 Metabolic encephalopathy G93.41 Nocturnal hypoxemia G47.34 Lymphedema I89.0 Paraplegia G82.20 Morbid obesity with BMI of 40.0-44.9, adult E66.01; Z68.41 Presence of intrathecal pump Z97.8
== END 2022-08-28 13:47 | disposition home health service (06) | DRG 871 ==
LOC: EDSEX → ED 20:25 → 2E 23:43 → SUATTDRO 23:43 → 2E 08-21 00:37